=== PATIENT | male | born 1965 | race Caucasian/White ===

== ENCOUNTER 2021-12-06 12:20 | Outpatient (REF) | payer OTHER, SELFPAY ==
--- NOTE | 2021-12-06 12:37 | EEG_ITS ---
The waking background activity consists of a well-defined posterior alpha of 10-12 hertz at [id number] voltage intermixed anteriorly with low-voltage fast frequencies. Drowsiness is characterized by diffuse theta slowing. During sleep symmetrical frontal central sleep spindles and K complexes developed. Arousals are unremarkable. The patient presses the button on few occasions, but no background changes noted. IMPRESSION: This 24-hour ambulatory EEG is considered within normal limits. MD RODOLFO Potter/MCKAY / [id number]
== END 2021-12-06 12:21 | disposition home or self-care (01) ==
LOC: HO.NEURO 12:20
PROVIDERS: PCP Internal Medicine; Visit Provider Psychiatry & Neurology Neurology
DX: G40.909 Epilepsy, unspecified, not intractable, without status epilepticus (principal)
CPT/HCPCS: 95708; 95957

== ENCOUNTER 2022-04-04 12:04 | Inpatient (IN) | payer OTHER, SELFPAY ==
[2022-04-04] VITALS (11 sets, daily range): BP systolic 121–155; BP diastolic 61–80; PULSE 15–111; RESP 15–19; TEMP 36.9–37.6; O2SAT 96–100; BMI 29.9
--- NOTE | ~2022-04-04 | CT_ITS ---
EXAMINATION: CT HEAD WITHOUT CONTRAST CLINICAL INFORMATION: Multiple falls. COMPARISON: Brain MRI dated 12/18/2019. TECHNIQUE: Contiguous axial imaging was performed from the skull base to vertex without intravenous administration of contrast. Coronal and sagittal reformatted images were obtained. This CT examination was performed using dose optimization techniques as appropriate, variously including the following: *Automated exposure control *Adjustment of mA and/or kV according to patient size (this includes techniques or standardized protocols for targeted exams where dose is matched to indication/reason for exam; i.e. extremities or head) *Use of iterative reconstruction technique DLP: 699 mGy-cm FINDINGS: There is no evidence of acute intracranial hemorrhage or territorial infarction. No abnormal mass effect or midline shift is seen. Lou to white matter differentiation is well preserved. No extra-axial fluid collections are identified. The ventricles are normal in size. There is no abnormal attenuation within the brain parenchyma. The osseous structures and soft tissues are normal. Mild mucosal thickening is seen in the ethmoid sinuses bilaterally. The remainder the visualized paranasal sinuses are clear. The mastoid air cells are clear. CT/CT head/brain wo con IMPRESSION: No acute intracranial pathology.
--- NOTE | 2022-04-04 12:51 | ECG_ITS ---
Test Reason : weakness Blood Pressure : / mmHG Vent. Rate : 105 BPM Atrial Rate : 105 BPM P-R Int : 168 ms QRS Dur : 086 ms QT Int : 370 ms P-R-T Axes : 037 018 061 degrees QTc Int : 489 ms Sinus tachycardia Nonspecific ST and T wave abnormality Abnormal ECG No previous ECGs available Referred By: Kalli Garcia Electronically Signed By:LUL POSADA
--- NOTE | 2022-04-04 13:01 | ED_ITS ---
HPI - General Adult General Chief complaint: Weakness Stated complaint: WEAKNESS,W/ FALLS PER EMS Time Seen by Provider: 04/04/22 12:21 Source: patient and EMS Mode of arrival: EMS Limitations: no limitations History of Present Illness HPI narrative: Patient comes emergency room reporting that for the last 2 weeks he has had increased episodes of sudden onset loss of control of his lower extremities causing him to fall. Patient states that his legs just give out. Patient does not pass out. States that sometimes he does feel lightheaded after he is on the floor. Patient also states that he has noticed that he has had trouble intermittently getting the words out. Patient states his gets very frustra eddie by these episodes of aphasia. Patient denies any head injury. Patient is usually able to walk by himself. However, over the last 3 weeks, he needs his mother's walker to get around his house. States that sometimes when he does fall, he needs to drag himself across the floor. Patient states that when he has to go to the bathroom, sometimes he is able to reach the bathroom in time, sometimes he does not due to the falls/crawling. Patient has been evaluated by Neurology, patient states that he does not have a diagnosis yet. A 24 hour EEG has been done, patient states it was nondiagnostic. Patient states that although he has been having intermittent neurological issues for a few months, this last 2 weeks have been the worse Related Data Home Medications Medication Instructions Recorded Confirmed aspirin 81 mg tablet,delayed 1 tab PO DAILY 04/04/22 04/04/22 release atorvastatin 10 mg tablet 1 tab PO DAILY 04/04/22 04/04/22 epinephrine 0.3 mg/0.3 mL 0.3 mg IM USEASDIRECTD PRN 04/04/22 04/04/22 injection, auto-injector fluoxetine 40 mg capsule 1 cap PO DAILY 04/04/22 04/04/22 fluticasone propionate 50 2 spray INTRANASAL DAILY PRN 04/04/22 04/04/22 mcg/actuation nasal spray,suspension gabapentin 800 mg tablet 1 tab PO TID 04/04/22 04/04/22 lidocaine 5 % topical patch 1 patch TOPICAL DAILY 04/04/22 04/04/22 losartan 50 mg tablet 1 tab PO BEDTIME 04/04/22 04/04/22 metformin 500 mg tablet 1 tab PO BIDWM 04/04/22 04/04/22 oxycodone-acetaminophen 10 mg-325 1 tab PO QID 04/04/22 04/04/22 mg tablet pregabalin 300 mg capsule 1 cap PO BID 04/04/22 04/04/22 Allergies Allergy/AdvReac Type Severity Reaction Status Date / Time No Known Allergies Allergy Verified 04/04/22 12:19 lisinopril Allergy Unknown cough Uncoded 05/16/17 00:00 protonix Allergy Unknown ringing in Uncoded 05/16/17 00:00 ear Review of Systems Review of Systems: Constitutional : No Weight loss, No Fever, No Chills, No Night Sweats, No Fatigue, No Malaise ENT/Mouth : No Hearing loss, No Ear Pain, No Nasal Congestion, No Sinus Pain, No Hoarseness, No sore throat, No Rhinorrhea, No Swallowing Difficulty Eyes: No Eye Pain, No Swelling, No Redness, No Foreign Body, No Discharge, No Vision Changes Cardiovascular : No Chest Pain, No SOB, No Dyspnea on Exertion, No Orthopnea, No Edema, No Palpitations Respiratory : No Cough, No Sputum, No Wheezing, No Smoke Exposure, No Dyspnea Gastrointestinal : No Nausea, No Vomiting, No Diarrhea, No Constipation, No abdominal Pain, No Hematochezia, No Melena Genitourinary : no irregular bleeding, No Dysuria, No Urinary Frequency, No Hematuria, No Urinary Incontinence, No Urgency, No Flank Pain, No Urinary Flow Changes, No Hesitancy Musculoskeletal : Complaining of sudden onset of loss of strength in lower extremities, minor abrasions to knees Skin : No Skin Lesions, No rash Neuro : Intermittent lower extremity Weakness, No Numbness, No Paresthesias, No Loss of Consciousness, No Dizziness, No Headache Psych : No Anxiety/Panic, No Depression, No SI/HI/AH/VH, No Social Issues, Heme/Lymph: No Bruising, No Bleeding,No Lymphadenopathy Endocrine : No Polyuria, No Polydipsia, No Temperature Intolerance ON LICENSE OF [facility] Past Medical History Medical History (Updated 04/04/22 @ 17:34 by Kalli Garcia MD) ADHD Depression GERD (gastroesophageal reflux disease) Gout Hypertension Hypertriglyceridemia Periodic limb movement disorder Sleep apnea Type 2 diabetes mellitus Surgical History (Updated 04/04/22 @ 13:08 by Kalli Garcia MD) H/O gastric bypass Social History Social History Alcohol intake: never Patient Tobacco Use Status: Never used Tobacco Use of substances other than those prescribed or required for medical reasons: No Advance Directives: No Advance Directives Information Provided: No Physical Exam ED Vital Signs: Vital Signs - 24 hr 04/04/22 12:20 04/04/22 14:27 Temperature 98.5 F 99.7 F Pulse Rate 105 H 107 H Respiratory Rate 18 16 Blood Pressure 124/68 128/74 Pulse Oximetry 96 100 BMI result Body Mass Index 29.9 Const Other: Appearance: Alert. Oriented X3. No acute distress. Eyes: Pupils equal, round and reactive to light. Pale conjunctiva ENT: Pharynx normal. Neck: Normal inspection. Neck supple. No lymph nodes noted. No crepitus CVS: Normal heart rate and rhythm. Pulses normal. Normal S1 and S2 Respiratory: No respiratory distress. Breath sounds normal. No Wheezing. No rales Abdomen: Soft and nontender. No rigidity. No distention. Digital rectal exam shows black stool Skin: Skin warm and dry. pale skin color. Normal skin turgor. Extremities: No lower extremity edema. No Lacerations. No Rash, occasional upper extremity jerking movements lasting for less than a second Neuro: Oriented X 3. Moving all extremities. No slurred speech. CN 2 through 12 grossly intact Psych: calm, cooperative, normal affect Course Course Course Narrative: Head CT within normal limits. I was informed by the patient's nurse that the labs have been delayed because the patient is a difficult stick. 15:35, the lab called, patient's hemoglobin is 4.5. I discussed with the patient that he needs a blood transfusion. Patient is agreeable, I discussed with the patient's the advantages versus risks of a blood transfusion, patient agreeable. Patient states that he had a colonoscopy approximately 2 years ago, he was told that he had small polyps, and the recommendations were to follow up in 5 years from the time of the colonoscopy. On arrival, but was done, shows nonspecific ST segment depression in lead V4 V5 and V6. Patient had no chest pain. Approximately at 15:40, patient mentioned to his nurse that he has headache and mild chest pain. Some of his labs are still pending, including troponin. A 2nd EKG has been requested, still pending I discussed the ekg and trop with DR. Gorman, changes likely secondary to anemia. Complete echo has been ordered Stool guaiac is positive, patient will need a GI consult tomorrow. Patient is not on any blood thinners, only takes aspirin daily. Patient's chronic neurologic complains are being addressed by neurology in the outpt office. Pt may need new MRIs I was informed by the patient's nurse that the patient is having difficulty urinating. Patient takes chronic opiates. Bladder scan shows more than 800 mL of urine. Patient needs now a Murphy catheter for urinary retention Medical Decision Making Lab Data Result diagrams: 04/04/22 15:14 04/04/22 15:14 Labs: Lab Results 04/04/22 04/04/22 04/04/22 Range/Units 14:08 15:14 15:14 WBC 8.2 (4.8-10.8) X10*3/uL RBC 1.79 L (4.60-5.80) X10*6/uL Hgb 4.5 L* (14.0-18.0) g/dl Hct 14.7 L* (42.0-52.0) % MCV 82.1 (80.0-98.0) fL MCH 25.1 L (27.0-33.0) pg MCHC 30.6 L (31.0-36.0) g/dl RDW 13.1 (11.0-16.0) % Plt Count 388 (160-400) X10*3/uL MPV 9.7 (9.4-12.4) fL Immature Gran % (Auto) 0.7 H (0.0-0.4) % Neut % (Auto) 65.0 (45-73) % Lymph % (Auto) 22.2 (20-40) % [place] % (Auto) 10.1 (2-11) % Eos % (Auto) 1.3 (0-4) % Baso % (Auto) 0.7 (0-2) % Lymph # (Auto) 1.8 (1.2-4.9) X10*3/uL [place] # (Auto) 0.8 (0.1-1.2) X10*3/uL Eos # (Auto) 0.1 (0.0-0.4) X10*3/uL Baso # (Auto) 0.1 (0.0-0.2) X10*3/uL Abs Immat Gran (auto) 0.06 H (0.00-0.03) X10*3/uL Absolute Neuts (auto) 5.3 (2.0-8.3) x10*3/uL Absolute Nucleated RBC 0.020 H (0.0-0.012) X10*3/uL Nucleated RBC % (auto) 0.2 (0.0-0.2) /100WBC PT 13.4 H (9.9-13.0) SEC INR 1.2 H (0.9-1.1) Sodium (135-145) mmol/L Potassium (3.3-5.1) mmol/L Chloride (96-108) mmol/L Carbon Dioxide (22-29) mmol/L Anion Gap (12-20) BUN (9-16) mg/dL Creatinine (0.5-1.4) mg/dL Estim Creat Clear Calc Estimated GFR Random Glucose (60-115) mg/dL Calcium (8.4-10.2) mg/dL Magnesium (1.6-2.6) mg/dL Total Bilirubin (0.0-1.0) mg/dL Direct Bilirubin (0.0-0.5) mg/dL AST (5-37) U/L ALT (0-40) U/L Alkaline Phosphatase (39-117) U/L Troponin I High Sens (<3.5-35.0) ng/L Total Protein (6.5-8.0) g/dL Albumin (3.5-5.0) g/dL Vitamin B12 (200-900) pg/mL Folate (> or = 4.0) ng/mL TSH (0.32-4.0) uIU/mL Stool Occult Blood (NEGATIVE) Ethyl Alcohol mg/dL COVID-19 ([facility]) Negative (Negative) COVID-19 Clin Com See Note Blood Type Antibody Screen Crossmatch 04/04/22 04/04/22 04/04/22 Range/Units 15:14 15:14 15:14 WBC (4.8-10.8) X10*3/uL RBC (4.60-5.80) X10*6/uL Hgb (14.0-18.0) g/dl Hct (42.0-52.0) % MCV (80.0-98.0) fL MCH (27.0-33.0) pg MCHC (31.0-36.0) g/dl RDW (11.0-16.0) % Plt Count (160-400) X10*3/uL MPV (9.4-12.4) fL Immature Gran % (Auto) (0.0-0.4) % Neut % (Auto) (45-73) % Lymph % (Auto) (20-40) % [place] % (Auto) (2-11) % Eos % (Auto) (0-4) % Baso % (Auto) (0-2) % Lymph # (Auto) (1.2-4.9) X10*3/uL [place] # (Auto) (0.1-1.2) X10*3/uL Eos # (Auto) (0.0-0.4) X10*3/uL Baso # (Auto) (0.0-0.2) X10*3/uL Abs Immat Gran (auto) (0.00-0.03) X10*3/uL Absolute Neuts (auto) (2.0-8.3) x10*3/uL Absolute Nucleated RBC (0.0-0.012) X10*3/uL Nucleated RBC % (auto) (0.0-0.2) /100WBC PT (9.9-13.0) SEC INR (0.9-1.1) Sodium 136 (135-145) mmol/L Potassium 3.5 (3.3-5.1) mmol/L Chloride 104 (96-108) mmol/L Carbon Dioxide 22 (22-29) mmol/L Anion Gap 14 (12-20) BUN 9 (9-16) mg/dL Creatinine 0.74 (0.5-1.4) mg/dL Estim Creat Clear Calc 121.9 Estimated GFR > 60 Random Glucose 136 H (60-115) mg/dL Calcium 8.0 L (8.4-10.2) mg/dL Magnesium 1.7 (1.6-2.6) mg/dL Total Bilirubin 0.4 (0.0-1.0) mg/dL Direct Bilirubin 0.2 (0.0-0.5) mg/dL AST 11 (5-37) U/L ALT 9 (0-40) U/L Alkaline Phosphatase 50 (39-117) U/L Troponin I High Sens 192.5 H* (<3.5-35.0) ng/L Total Protein 5.8 L (6.5-8.0) g/dL Albumin 3.6 (3.5-5.0) g/dL Vitamin B12 430 (200-900) pg/mL Folate 17.2 (> or = 4.0) ng/mL TSH (0.32-4.0) uIU/mL Stool Occult Blood (NEGATIVE) Ethyl Alcohol mg/dL COVID-19 ([facility]) (Negative) COVID-19 Clin Com Blood Type Antibody Screen Crossmatch 04/04/22 04/04/22 04/04/22 Range/Units 15:14 15:14 16:07 WBC (4.8-10.8) X10*3/uL RBC (4.60-5.80) X10*6/uL Hgb (14.0-18.0) g/dl Hct (42.0-52.0) % MCV (80.0-98.0) fL MCH (27.0-33.0) pg MCHC (31.0-36.0) g/dl RDW (11.0-16.0) % Plt Count (160-400) X10*3/uL MPV (9.4-12.4) fL Immature Gran % (Auto) (0.0-0.4) % Neut % (Auto) (45-73) % Lymph % (Auto) (20-40) % [place] % (Auto) (2-11) % Eos % (Auto) (0-4) % Baso % (Auto) (0-2) % Lymph # (Auto) (1.2-4.9) X10*3/uL [place] # (Auto) (0.1-1.2) X10*3/uL Eos # (Auto) (0.0-0.4) X10*3/uL Baso # (Auto) (0.0-0.2) X10*3/uL Abs Immat Gran (auto) (0.00-0.03) X10*3/uL Absolute Neuts (auto) (2.0-8.3) x10*3/uL Absolute Nucleated RBC (0.0-0.012) X10*3/uL Nucleated RBC % (auto) (0.0-0.2) /100WBC PT (9.9-13.0) SEC INR (0.9-1.1) Sodium (135-145) mmol/L Potassium (3.3-5.1) mmol/L Chloride (96-108) mmol/L Carbon Dioxide (22-29) mmol/L Anion Gap (12-20) BUN (9-16) mg/dL Creatinine (0.5-1.4) mg/dL Estim Creat Clear Calc Estimated GFR Random Glucose (60-115) mg/dL Calcium (8.4-10.2) mg/dL Magnesium (1.6-2.6) mg/dL Total Bilirubin (0.0-1.0) mg/dL Direct Bilirubin (0.0-0.5) mg/dL AST (5-37) U/L ALT (0-40) U/L Alkaline Phosphatase (39-117) U/L Troponin I High Sens (<3.5-35.0) ng/L Total Protein (6.5-8.0) g/dL Albumin (3.5-5.0) g/dL Vitamin B12 (200-900) pg/mL Folate (> or = 4.0) ng/mL TSH 0.37 (0.32-4.0) uIU/mL Stool Occult Blood (NEGATIVE) Ethyl Alcohol < 10 mg/dL COVID-19 ([facility]) (Negative) COVID-19 Clin Com Blood Type A Positive Antibody Screen NEGATIVE Crossmatch See Detail 04/04/22 Range/Units 16:11 WBC (4.8-10.8) X10*3/uL RBC (4.60-5.80) X10*6/uL Hgb (14.0-18.0) g/dl Hct (42.0-52.0) % MCV (80.0-98.0) fL MCH (27.0-33.0) pg MCHC (31.0-36.0) g/dl RDW (11.0-16.0) % Plt Count (160-400) X10*3/uL MPV (9.4-12.4) fL Immature Gran % (Auto) (0.0-0.4) % Neut % (Auto) (45-73) % Lymph % (Auto) (20-40) % [place] % (Auto) (2-11) % Eos % (Auto) (0-4) % Baso % (Auto) (0-2) % Lymph # (Auto) (1.2-4.9) X10*3/uL [place] # (Auto) (0.1-1.2) X10*3/uL Eos # (Auto) (0.0-0.4) X10*3/uL Baso # (Auto) (0.0-0.2) X10*3/uL Abs Immat Gran (auto) (0.00-0.03) X10*3/uL Absolute Neuts (auto) (2.0-8.3) x10*3/uL Absolute Nucleated RBC (0.0-0.012) X10*3/uL Nucleated RBC % (auto) (0.0-0.2) /100WBC PT (9.9-13.0) SEC INR (0.9-1.1) Sodium (135-145) mmol/L Potassium (3.3-5.1) mmol/L Chloride (96-108) mmol/L Carbon Dioxide (22-29) mmol/L Anion Gap (12-20) BUN (9-16) mg/dL Creatinine (0.5-1.4) mg/dL Estim Creat Clear Calc Estimated GFR Random Glucose (60-115) mg/dL Calcium (8.4-10.2) mg/dL Magnesium (1.6-2.6) mg/dL Total Bilirubin (0.0-1.0) mg/dL Direct Bilirubin (0.0-0.5) mg/dL AST (5-37) U/L ALT (0-40) U/L Alkaline Phosphatase (39-117) U/L Troponin I High Sens (<3.5-35.0) ng/L Total Protein (6.5-8.0) g/dL Albumin (3.5-5.0) g/dL Vitamin B12 (200-900) pg/mL Folate (> or = 4.0) ng/mL TSH (0.32-4.0) uIU/mL Stool Occult Blood POSITIVE (NEGATIVE) Ethyl Alcohol mg/dL COVID-19 ([facility]) (Negative) COVID-19 Clin Com Blood Type Antibody Screen Crossmatch Critical Care Time Critical Care Time Critical Care Time: Yes Total Critical Care Time: 60 Attestation: I have personally provided critical care time. Time includes review of lab data, radiology results, discussion with consultants, and monitoring for potential decompensation. Intervention performed as documented. Discharge Plan Discharge Clinical Impression: Anemia, GI bleed, Acute urinary retention Patient Disposition: Admitted As Inpatient
[2022-04-04 14:36] LABS: COVID-19 Test Negative (Negative); IDNOW Serial# 16C4AD1C
[2022-04-04 15:20] LABS: MANUAL DIFF FLAG NO
[2022-04-04 15:22] LABS: Basophils Absolute Auto 0.1 X10*3/uL (0.0-0.2); Basophils Percent Auto 0.7 % (0-2); Eosinophils Absolute Auto 0.1 X10*3/uL (0.0-0.4); Eosinophils Percent Auto 1.3 % (0-4); Imm Gran Abs Auto 0.06 X10*3/uL (0.00-0.03); Imm Gran Pct Auto 0.7 % (0.0-0.4); Lymphocytes Absolute Auto 1.8 X10*3/uL (1.2-4.9); Lymphocytes Percent Auto 22.2 % (20-40); Mean Corpuscular HGB Conc 30.6 g/dl (31.0-36.0); Mean Corpuscular Hemoglobin 25.1 pg (27.0-33.0); Mean Corpuscular Volume 82.1 fL (80.0-98.0); Mean Platelet Volume 9.7 fL (9.4-12.4); Monocytes Absolute Auto 0.8 X10*3/uL (0.1-1.2); Monocytes Percent Auto 10.1 % (2-11); NRBC Pct Auto 0.2 /100WBC (0.0-0.2); Neutrophils Absolute Auto 5.3 x10*3/uL (2.0-8.3); Platelet Count 388 X10*3/uL (160-400); Red Blood Count 1.79 X10*6/uL (4.60-5.80); Red Cell Distribution Width 13.1 % (11.0-16.0); White Blood Count 8.2 X10*3/uL (4.8-10.8)
[2022-04-04 15:26] LABS: Hemoglobin 4.5 g/dl (14.0-18.0)
[2022-04-04 15:27] LABS: Hematocrit 14.7 % (42.0-52.0); INTERNATIONAL NORM RATIO 1.2 (0.9-1.1); Prothrombin Time 13.4 SEC (9.9-13.0)
[2022-04-04 15:33] LABS: Ethanol < 10 mg/dL
[2022-04-04 15:40] LABS: Alanine Aminotransferase 9 U/L (0-40); Albumin Level 3.6 g/dL (3.5-5.0); Alkaline Phosphatase 50 U/L (39-117); Anion Gap 14 (12-20); Aspartate Amino Transferase 11 U/L (5-37); Bilirubin Direct 0.2 mg/dL (0.0-0.5); Bilirubin Total 0.4 mg/dL (0.0-1.0); Blood Urea Nitrogen 9 mg/dL (9-16); Carbon Dioxide 22 mmol/L (22-29); Chloride 104 mmol/L (96-108); Creatinine Clr Calc Pharmacy 121.9; Estimated Glomerular Filt Rate > 60; Glucose Random 136 mg/dL (60-115); Magnesium 1.7 mg/dL (1.6-2.6); Potassium 3.5 mmol/L (3.3-5.1); Sodium 136 mmol/L (135-145); Total Protein 5.8 g/dL (6.5-8.0)
[2022-04-04 15:44] LABS: Troponin-I High Sensitivity 192.5 ng/L (<3.5-35.0)
--- NOTE | 2022-04-04 15:44 | ECG_ITS ---
Test Reason : CHEST PAIN Blood Pressure : / mmHG Vent. Rate : 105 BPM Atrial Rate : 105 BPM P-R Int : 142 ms QRS Dur : 086 ms QT Int : 364 ms P-R-T Axes : 015 026 067 degrees QTc Int : 481 ms Sinus tachycardia Nonspecific ST and T wave abnormality Abnormal ECG When compared with ECG of 04-APR-2022 13:27, Lateral ST depression slightly more prominent. Referred By: Kalli Garcia Electronically Signed By:LUL POSADA
[2022-04-04 16:00] LABS: TSH reflex Free T4 0.37 uIU/mL (0.32-4.0)
[2022-04-04 16:13] LABS: Folate 17.2 ng/mL (> or = 4.0); Vitamin B12 430 pg/mL (200-900)
[2022-04-04 16:15] LABS: OBS Int Ctl Valid YES; OBS1 POSITIVE (NEGATIVE)
--- NOTE | 2022-04-04 16:26 | PHA.MEDREC ---
Pharmacy Consult ? Medication Reconciliation Pharmacy has completed the medication reconciliation Pt takes both gabapentin and pregablin, gabapentin frequency reduced to tid. Propranolol stopped
[2022-04-04] MEDS: Prochlorperazine Edisylate 10 MG/2 ML VIAL IVPUSH (16:28)
[2022-04-04] MEDS: Morphine Sulfate 2 MG/ML CARTRIDGE IVPUSH (16:28)
--- NOTE | 2022-04-04 17:12 | PM.IMHP ---
History of Present Illness Date of Service: 04/04/22 Attending physician on admission: Gunnar Kirkpatrick Chief Complaint: weakness 57 year old man presenting with episodes of dizziness and falls worse over the last 2 weeks. he reports that getting up to the bathroom he just falls down on his knees, he denies any loss of consciousness we does report some dizziness. He has been worked up for an unknown neurological illness. This has been ongoing over the last several years. He has been using a walker intermittently at home when he has trouble getting around. In 2019 he had an MRI for presumed stroke which was negative. In November of this year he had an EEG which was nondiagnostic. He reports that the follow-up for this has subsided some. He reported that he does have history of constipation and had occasionally noted some dark stools and he takes aspirin and very occasional ibuprofen but not on a regular basis. He reported that he does get some chest pain on and off substernal without any radiation or other associated symptoms usually happening when he falls. This has been ongoing for several months now as well. He also has some aphasia. CT was negative for any acute abnormality today. He was noted to have some urinary retention therefore a Murphy catheter was placed. In the ER,His HH was noted to be 4.5/14.7, stool occult positive. He had some mild chest pain and troponin came back positive at 192.[address] wave abnormalities to V4,5,6. Head CT neg. Stable blood pressure. 3 units of PRBC ordered. He will be admitted for further management and treatment of symptomatic acute blood loss anemia. Review of Systems Review of Systems: Denies any recent fever chills or decrease in appetite respiratory denies any shortness of breath coverage production cardiovascular see HPI gastrointestinal denies any dysphagia abdominal pain nausea vomiting or diarrhea genitourinary denies any dysuria frequency or hematuria musculoskeletal denies any joint pain or swelling neuropsych denies any weakness or seizures all other systems reviewed are negative [facility] Medical History (Updated 04/04/22 @ 17:34 by Kalli Garcia MD) ADHD Depression GERD (gastroesophageal reflux disease) Gout Hypertension Hypertriglyceridemia Periodic limb movement disorder Sleep apnea Type 2 diabetes mellitus Pertinent family history: denies cardiac disease Surgical History (Updated 04/04/22 @ 13:08 by Kalli Garcia MD) H/O gastric bypass Social History Alcohol intake: never Patient Tobacco Use Status: Never used Tobacco Use of substances other than those prescribed or required for medical reasons: No Advance Directives: No Advance Directives Information Provided: No Meds Allergies Allergy/AdvReac Type Severity Reaction Status Date / Time No Known Allergies Allergy Verified 04/04/22 12:19 lisinopril Allergy Unknown cough Uncoded 05/16/17 00:00 protonix Allergy Unknown ringing in Uncoded 05/16/17 00:00 ear Active Medications: Current Medications Acetaminophen (Acetaminophen 325 Mg Tablet) 650 mg PO Q6H PRN PRN Reason: Pain, Mild (Pain Scale 1-3) Atorvastatin Calcium (Atorvastatin Calcium 10 Mg Tablet) 10 mg PO DAILY [facility] Fluoxetine HCl (Fluoxetine Hcl 20 Mg Capsule) 40 mg PO DAILY [facility] Fluticasone Propionate (Fluticasone Propionate Nasal 16 Gm [place]) 2 spray NOSTRIL-B DAILY PRN PRN Reason: Allergy Symptoms Gabapentin (Gabapentin 400 Mg Capsule) 800 mg PO TID [facility] Lidocaine (Lidocaine 4 % Patch Adh..Patch) 1 patch TRANSDERMA DAILY [facility] Ondansetron HCl (Ondansetron Hcl 4 Mg/2 Ml Vial) 4 mg IVPUSH Q8H PRN PRN Reason: Nausea and Vomiting Pharmacy Consult (Consult Rx Perform Med Rec) 1 each MISCELLANE ONCE PRN PRN Reason: Consult order Pregabalin (Pregabalin 150 Mg Capsule) 300 mg PO BID [facility] Sodium Chloride (0.9 % Sodium Chloride Flush 3 Ml Syringe) 3 ml IVFLUSH QSHIFT [facility] Home Medications Medication Instructions Recorded Confirmed Last Taken Type aspirin 81 mg tablet,delayed 1 tab PO DAILY 04/04/22 04/04/22 04/04/22 History release atorvastatin 10 mg tablet 1 tab PO DAILY 04/04/22 04/04/22 04/04/22 History epinephrine 0.3 mg/0.3 mL 0.3 mg IM USEASDIRECTD PRN 04/04/22 04/04/22 Unknown History injection, auto-injector fluoxetine 40 mg capsule 1 cap PO DAILY 04/04/22 04/04/22 04/04/22 History fluticasone propionate 50 2 spray INTRANASAL DAILY PRN 04/04/22 04/04/22 Unknown History mcg/actuation nasal spray,suspension gabapentin 800 mg tablet 1 tab PO TID 04/04/22 04/04/22 04/04/22 History lidocaine 5 % topical patch 1 patch TOPICAL DAILY 04/04/22 04/04/22 03/30/22 History losartan 50 mg tablet 1 tab PO BEDTIME 04/04/22 04/04/22 03/31/22 History metformin 500 mg tablet 1 tab PO BIDWM 04/04/22 04/04/22 04/04/22 History oxycodone-acetaminophen 10 mg-325 1 tab PO QID 04/04/22 04/04/22 04/04/22 History mg tablet pregabalin 300 mg capsule 1 cap PO BID 04/04/22 04/04/22 04/04/22 History Physical Exam Vital Signs and Narrative: Vital Signs: Last Vital Signs Temp 99.7 F 04/04/22 14:27 Pulse 107 H 04/04/22 14:27 Resp 16 04/04/22 14:27 BP 128/74 04/04/22 14:27 Pulse Ox 100 04/04/22 14:27 BMI result Body Mass Index 29.9 Results Labs CBC and Chem 7: 04/04/22 15:14 04/04/22 15:14 Labs: Laboratory Results - last 24 hr 04/04/22 04/04/22 04/04/22 14:08 15:14 15:14 MCV 82.1 MCH 25.1 L MCHC 30.6 L RDW 13.1 Plt Count 388 MPV 9.7 Immature Gran % (Auto) 0.7 H Neut % (Auto) 65.0 Lymph % (Auto) 22.2 [place] % (Auto) 10.1 Eos % (Auto) 1.3 Baso % (Auto) 0.7 Lymph # (Auto) 1.8 [place] # (Auto) 0.8 Eos # (Auto) 0.1 Baso # (Auto) 0.1 Abs Immat Gran (auto) 0.06 H Absolute Neuts (auto) 5.3 Absolute Nucleated RBC 0.020 H Nucleated RBC % (auto) 0.2 PT 13.4 H INR 1.2 H Anion Gap Estim Creat Clear Calc Estimated GFR Random Glucose Calcium Magnesium Total Bilirubin Direct Bilirubin AST ALT Alkaline Phosphatase Troponin I High Sens Total Protein Albumin Vitamin B12 Folate TSH Stool Occult Blood Ethyl Alcohol COVID-19 ([facility]) Negative COVID-19 Clin Com See Note Blood Type Antibody Screen Crossmatch 04/04/22 04/04/22 04/04/22 15:14 15:14 15:14 MCV MCH MCHC RDW Plt Count MPV Immature Gran % (Auto) Neut % (Auto) Lymph % (Auto) [place] % (Auto) Eos % (Auto) Baso % (Auto) Lymph # (Auto) [place] # (Auto) Eos # (Auto) Baso # (Auto) Abs Immat Gran (auto) Absolute Neuts (auto) Absolute Nucleated RBC Nucleated RBC % (auto) PT INR Anion Gap 14 Estim Creat Clear Calc 121.9 Estimated GFR > 60 Random Glucose 136 H Calcium 8.0 L Magnesium 1.7 Total Bilirubin 0.4 Direct Bilirubin 0.2 AST 11 ALT 9 Alkaline Phosphatase 50 Troponin I High Sens 192.5 H* Total Protein 5.8 L Albumin 3.6 Vitamin B12 430 Folate 17.2 TSH Stool Occult Blood Ethyl Alcohol COVID-19 ([facility]) COVID-19 Unruly Com Blood Type Antibody Screen Crossmatch 04/04/22 04/04/22 04/04/22 15:14 15:14 16:07 MCV MCH MCHC RDW Plt Count MPV Immature Gran % (Auto) Neut % (Auto) Lymph % (Auto) [place] % (Auto) Eos % (Auto) Baso % (Auto) Lymph # (Auto) [place] # (Auto) Eos # (Auto) Baso # (Auto) Abs Immat Gran (auto) Absolute Neuts (auto) Absolute Nucleated RBC Nucleated RBC % (auto) PT INR Anion Gap Estim Creat Clear Calc Estimated GFR Random Glucose Calcium Magnesium Total Bilirubin Direct Bilirubin AST ALT Alkaline Phosphatase Troponin I High Sens Total Protein Albumin Vitamin B12 Folate TSH 0.37 Stool Occult Blood Ethyl Alcohol < 10 COVID-19 ([facility]) COVID-19 Unruly Com Blood Type A Positive Antibody Screen NEGATIVE Crossmatch See Detail 04/04/22 16:11 MCV MCH MCHC RDW Plt Count MPV Immature Gran % (Auto) Neut % (Auto) Lymph % (Auto) [place] % (Auto) Eos % (Auto) Baso % (Auto) Lymph # (Auto) [place] # (Auto) Eos # (Auto) Baso # (Auto) Abs Immat Gran (auto) Absolute Neuts (auto) Absolute Nucleated RBC Nucleated RBC % (auto) PT INR Anion Gap Estim Creat Clear Calc Estimated GFR Random Glucose Calcium Magnesium Total Bilirubin Direct Bilirubin AST ALT Alkaline Phosphatase Troponin I High Sens Total Protein Albumin Vitamin B12 Folate TSH Stool Occult Blood POSITIVE Ethyl Alcohol COVID-19 ([facility]) COVID-19 Clin Com Blood Type Antibody Screen Crossmatch Imaging Radiologist's Impressions: Impressions Head CT 04/04/22 13:21 IMPRESSION: No acute intracranial pathology. Assessment and Plan (1) GI bleed: Status: Acute Plan 57-year-old man admitted with severe anemia with black stools, also noted to have elevated troponin with abnormal EKG likely secondary to anemia. Acute blood loss anemia with dizziness Denies history of heavy alcohol abuse, takes aspirin 3 units of packed red blood cells ordered Recheck CBC tonight and transfuse as necessary GI consultation, will likely need EGD, colo PPI Hold aspirin EKG abnormality with elevated troponin Nonspecific ST wave abnormalities in V4, V5 and V6 Patient did have some mild chest pain but has since subsided, and he reported that this has been ongoing for several months especially when he falls Cardiology consultation Trend troponin Echocardiogram as per Cardiology Urinary retention. Unknown etiology Murphy catheter placed with drainage of 800 cc of yellow urine Check Utox, UA Voiding trial when patient more stable no improvement consider urology consultation Hypertension. Stable blood pressure Hold antihypertensives to avoid hypotension in light of severe anemia restart when appropriate Aphasia with falls Currently being followed by neurology for workup which so far has included an EEG which was nondiagnostic Looks like he has had the symptoms since 2019 possibly, had an MRI for presumed stroke which was negative Will consult Neurology in case patient needs any workup that could be done while inpatient Physical therapy consultation out of bed with assist Mental health Continue home medications Diabetes mellitus Hold metformin Sliding scale, ADA diet DVT prophylaxis with pneumatic compression boots in light of anemia Attending Dr. Kirkpatrick Full code Patient likely requires 2 midnights in the hospital due to severe symptomatic anemia requiring blood transfusions, close monitoring of CBC and likely gastroenterological procedure while inpatient Quality Stroke Does the patient have a stroke diagnosis?: No VTE Prior VTE?: No VTE Risk Level:: Medical - moderate - high VTE Device Contraindication: N/A - Device Ordered VTE Drug Contraindication: Treatment Not Indicated
[2022-04-04 17:50] LABS: Appearance Urine CLEAR; Color Urine YELLOW; Glucose Urine UA 100 MG/DL (NEG); Leukocyte Esterase Urine NEG (NEG); Nitrite Urine NEG (NEG); PH 7.5 (5.0-8.0); UACC Culture Trigger NO; Urine Blood TRACE (NEG); Urine Ketones NEG (NEG); Urine Protein NEG (NEG-TRACE)
[2022-04-04 18:00] LABS: Squamous Epithelial Cell Urine TRACE /LPF; UACC CULT YES
[2022-04-04 18:05] LABS: Amphetamine Screen Urine Not Detected (Not Detect); Barbiturates, Urine Not Detected (Not Detect); Benzodiazepines Screen Urine Not Detected (Not Detect); Cannabinoid Screen Urine POSITIVE (Not Detect); Cocaine Screen Urine Not Detected (Not Detect); Fentanyl, urine Not Detected (Not Detect); Opiate Screen Urine POSITIVE (Not Detect); Phencyclidine Screen Urine Not Detected (Not Detect)
[2022-04-04 18:27] LABS: Iron 9 mcg/dL (45-160); Percent Iron Saturation 2 % (15-50); Total Iron Binding Capacity 384 mcg/dL (228-428); Unsaturated Iron Binding 375 ug/dL
[2022-04-04 18:44] LABS: Ferritin 5 ng/mL (20-250)
[2022-04-04] MEDS: oxyCODONE HCl Immed Release 5 MG TABLET PO (19:40)
[2022-04-04 20:28] LABS: Troponin-I High Sensitivity 164.6 ng/L (<3.5-35.0)
[2022-04-04] MEDS: Gabapentin 400 MG CAPSULE 800 MG PO (20:43)
[2022-04-04] MEDS: Pregabalin 150 MG CAPSULE 300 MG PO (20:43)
[2022-04-04 21:24] LABS: Glucose, Whole Blood 163 mg/dL (60-115)
--- NOTE | 2022-04-04 22:11 | PC.NURSE ---
Patient alert and oriented x 3. tele: sinus tachycardia 100-110's Patient c/o back pain medicated with relief. Patients hgb-4.5 MD aware ordered 3 units of RBC's ordered. 2 units given in ED. Patient ambulates independently at home. Patient bladder scanned for over 800cc's Dr. Garcia notified ordered [place] catheter insertion. Coude catheter inserted 18f by Me. see chart for labs results. Troponins elevated. Will continue to monitor.
[2022-04-04] MEDS: 0.9 % Sodium Chloride Flush 3 ML SYRINGE IVFLUSH (22:30)
[2022-04-04 22:57] LABS: Mean Corpuscular HGB Conc 32.1 g/dl (31.0-36.0); Mean Corpuscular Hemoglobin 27.3 pg (27.0-33.0); Mean Platelet Volume 9.9 fL (9.4-12.4); NRBC Pct Auto 0.4 /100WBC (0.0-0.2); Platelet Count 351 X10*3/uL (160-400); Red Cell Distribution Width 14.4 % (11.0-16.0); White Blood Count 10.4 X10*3/uL (4.8-10.8)
[2022-04-04 23:10] LABS: Hematocrit 18.7 % (42.0-52.0)
[2022-04-05] VITALS (12 sets, daily range): BP systolic 134–158; BP diastolic 61–92; PULSE 86–103; RESP 16–18; TEMP 36.3–37.5; O2SAT 98–100
[2022-04-05] MEDS: diphenhydrAMINE HCL 25 MG TABLET PO (00:41)
[2022-04-05] MEDS: oxyCODONE HCl Immed Release 5 MG TABLET PO (00:41)
--- NOTE | 2022-04-05 06:27 | P.CNGI_ITS ---
History of Present Illness Data of Consult Service Date: 04/05/22 Requesting physician: Gunnar Kirkpatrick Primary Care Provider: Burak Orr III, MD HPI Reason for consult: anemia 57 year old man w/ DM, LIV< HTN and gastric bypass 2016 who I am seeing for assessment of anemia. He presented with weakness with dizziness and falls. He also had mid chest pain which has now resolved. Labs revealed severe anemia with HGB 4.5 g/dl and given 3 units PRBC. He also had abn ECG and raised troponin. He has noted dark brown stools, bt no fresh blood in stool. He denies abdominal pain, no reflux. He takes aspirin 325 mg daily in combination with codeine for neck pain for mnay years He is also being Ix for chronic neurological sx He ran out of his nutritonal supplements and iron tabs one month ago. Last colonoscopyh was 3 yrs or so ago at [facility] [place] and normal Review of Systems Review of Systems: Constitutional : No Weight loss, No Fever, No Chills ENT/Mouth : No sore throat, No Rhinorrhea Eyes: No Swelling, No Redness Cardiovascular : + Chest Pain, No SOB, No Edema Respiratory : No Cough, No Sputum, No Wheezing Gastrointestinal : see HPI Genitourinary : NO Dysuria, No Urinary Frequency, No Hematuria, No Urgency Musculoskeletal : No joint pain, No Myalgias, No Joint Swelling Skin : No Skin Lesions, No rash Neuro : + Weakness, No Numbness, + Dizziness, No Headache Psych : No Anxiety/Panic, No Depression Heme/Lymph: No Bruising, No Lymphadenopathy Endocrine : No Polyuria, No Polydipsia All other systems reviewed and are negative [facility] Past Medical History Medical History (Updated 04/05/22 @ 18:05 by Cielo Henson MD) ADHD Depression GERD (gastroesophageal reflux disease) Gout Hypertension Hypertriglyceridemia Periodic limb movement disorder Sleep apnea Type 2 diabetes mellitus Family History Family History (Updated 04/05/22 @ 10:28 by Chapo Gorman MD) Mother No problems noted. Pertinent family history: denies cardiac disease, no FH of CRC Surgical History Surgical History (Updated 04/04/22 @ 13:08 by Kalli Garcia MD) H/O gastric bypass Social History Social History Household Members: Spouse and Other Housing: House Do you presently have visiting nurse or other home services: No Alcohol intake: never Patient Tobacco Use Status: Never used Tobacco Substance Use Type: Marijuana service: No Current occupational status: unemployed Meds Allergies Allergy/AdvReac Type Severity Reaction Status Date / Time No Known Allergies Allergy Verified 04/04/22 12:19 lisinopril Allergy Unknown cough Uncoded 05/16/17 00:00 protonix Allergy Unknown ringing in Uncoded 05/16/17 00:00 ear Active Medications: Current Medications Acetaminophen (Acetaminophen 325 Mg Tablet) 650 mg PO Q6H PRN PRN Reason: Pain, Mild (Pain Scale 1-3) Atorvastatin Calcium (Atorvastatin Calcium 10 Mg Tablet) 10 mg PO DAILY [facility] Diphenhydramine HCl (Diphenhydramine Hcl 25 Mg Tablet) 25 mg PO BEDTIME PRN PRN Reason: Sleep Last Admin: 04/05/22 00:41 Dose: 25 mg Fluoxetine HCl (Fluoxetine Hcl 20 Mg Capsule) 40 mg PO DAILY [facility] Fluticasone Propionate (Fluticasone Propionate Nasal 16 Gm [place]) 2 spray NOSTRIL-B DAILY PRN PRN Reason: Allergy Symptoms Gabapentin (Gabapentin 400 Mg Capsule) 800 mg PO TID [facility] Last Admin: 04/04/22 20:43 Dose: 800 mg Lidocaine (Lidocaine 4 % Patch Adh..Patch) 1 patch TRANSDERMA DAILY [facility] Omeprazole (Omeprazole 40 Mg Capsule.Dr) 40 mg PO BID@0630,1630 [facility] Ondansetron HCl (Ondansetron Hcl 4 Mg/2 Ml Vial) 4 mg IVPUSH Q8H PRN PRN Reason: Nausea and Vomiting Oxycodone HCl (Oxycodone Hcl Immed Release 5 Mg Tablet) 5 mg PO Q6H PRN PRN Reason: Breakthrough Pain Last Admin: 04/05/22 00:41 Dose: 5 mg Pharmacy Consult (Consult Rx Perform Med Rec) 1 each MISCELLANE ONCE PRN PRN Reason: Consult order Pregabalin (Pregabalin 150 Mg Capsule) 300 mg PO BID [facility] Last Admin: 04/04/22 20:43 Dose: 300 mg Sodium Chloride (0.9 % Sodium Chloride Flush 3 Ml Syringe) 3 ml IVFLUSH QSHIFT [facility] Last Admin: 04/04/22 22:30 Dose: 3 ml Home Medications Medication Instructions Recorded Confirmed Last Taken Type aspirin 81 mg tablet,delayed 1 tab PO DAILY 04/04/22 04/04/22 04/04/22 History release atorvastatin 10 mg tablet 1 tab PO DAILY 04/04/22 04/04/22 04/04/22 History epinephrine 0.3 mg/0.3 mL 0.3 mg IM USEASDIRECTD PRN 04/04/22 04/04/22 Unknown History injection, auto-injector Anaphylaxis fluoxetine 40 mg capsule 1 cap PO DAILY 04/04/22 04/04/22 04/04/22 History fluticasone propionate 50 2 spray intranasal DAILY PRN 04/04/22 04/04/22 Unknown History mcg/actuation nasal Allergy Symptoms spray,suspension gabapentin 800 mg tablet 1 tab PO TID 04/04/22 04/04/22 04/04/22 History lidocaine 5 % topical patch 1 patch topical DAILY 04/04/22 04/04/22 03/30/22 History losartan 50 mg tablet 1 tab PO BEDTIME 04/04/22 04/04/22 03/31/22 History metformin 500 mg tablet 1 tab PO BIDWM 04/04/22 04/04/22 04/04/22 History oxycodone-acetaminophen 10 mg-325 1 tab PO QID 04/04/22 04/04/22 04/04/22 His tory mg tablet pregabalin 300 mg capsule 1 cap PO BID 04/04/22 04/04/22 04/04/22 History Physical Exam Vital Signs: Vital Signs: Last Vital Signs Temp 98.7 F 04/05/22 03:25 Pulse 103 H 04/05/22 03:25 Resp 18 04/05/22 03:25 BP 146/78 H 04/05/22 03:25 Pulse Ox 99 04/05/22 03:25 O2 Del Method 04/05/22 03:25 BMI result Body Mass Index 29.9 EXAM: GENERAL: The patient is well developed and nontoxic appearing, slight pallor VITAL SIGNS:see workflow HEENT: Nonicteric sclerae, PERRLA, EOMI. Oropharynx clear. Moist mucous membranes. Conjunctivae appear pale. No thyroid mass. CHEST: Chest wall is nontender. HEART: Regular rate and rhythm without murmurs. LUNGS: Clear to auscultation bilaterally. ABDOMEN: Soft, positive bowel sounds, nontender, no organomegaly.no flank tenderness SKIN: No rash, no excessive bruising, petechiae, or purpura. NEUROLOGIC: Cranial nerves II-XII intact without motor/sensory deficit. Psych-nml affect MS- nml movement of arms, spine, legs Const: Other: Appearance: Alert. Oriented X3. No acute distress. Eyes: Pupils equal, round and reactive to light. Pale conjunctiva ENT: Pharynx normal. Neck: Normal inspection. Neck supple. No lymph nodes noted. No crepitus CVS: Normal heart rate and rhythm. Pulses normal. Normal S1 and S2 Respiratory: No respiratory distress. Breath sounds normal. No Wheezing. No rales Abdomen: Soft and nontender. No rigidity. No distention. Digital rectal exam shows black stool Skin: Skin warm and dry. pale skin color. Normal skin turgor. Extremities: No lower extremity edema. No Lacerations. No Rash, occasional upper extremity jerking movements lasting for less than a second Neuro: Oriented X 3. Moving all extremities. No slurred speech. CN 2 through 12 grossly intact Psych: calm, cooperative, normal affect Results Labs CBC & Chem 7: 04/05/22 06:00 04/05/22 06:00 Labs: Short CBC 04/04/22 04/04/22 Range/Units 15:14 22:46 WBC 8.2 10.4 (4.8-10.8) X10*3/uL Hgb 4.5 L* 6.0 L* D (14.0-18.0) g/dl Hct 14.7 L* 18.7 L* D (42.0-52.0) % Plt Count 388 351 (160-400) X10*3/uL BMP 04/04/22 15:14 Sodium 136 Potassium 3.5 Chloride 104 Carbon Dioxide 22 BUN 9 Creatinine 0.74 Calcium 8.0 L Liver Function 04/04/22 Range/Units 15:14 Total Bilirubin 0.4 (0.0-1.0) mg/dL Direct Bilirubin 0.2 (0.0-0.5) mg/dL AST 11 (5-37) U/L ALT 9 (0-40) U/L Alkaline Phosphatase 50 (39-117) U/L Albumin 3.6 (3.5-5.0) g/dL Urine 04/04/22 Range/Units 17:42 Urine Color YELLOW Urine Appearance CLEAR Urine pH 7.5 (5.0-8.0) Ur Specific [place] 1.010 (1.005-1.025) Urine Protein NEG (NEG-TRACE) MG/DL Urine Glucose (UA) 100 H (NEG) MG/DL Assessment and Plan (1) Iron deficiency: Status: Acute (2) Anemia: Status: Acute Plan 1/ RIKI from combination of gastric bypass with malnutrition and posible mucosal blood loss due to higher dose aspirin for many years vs PUD PLAN: 1/ Trend HGB BID, target HGB around 8 g/dl--raised trop prob due to demand - mismand ischemia 2/ clears today and bowel prep with plan for egd/colo tomorrow 3/ can use standard dose PPI once daily for the meantime Procedures Date of Service Date of Service: 04/05/22
[2022-04-05 06:29] LABS: MANUAL DIFF FLAG NO
[2022-04-05 06:50] LABS: Basophils Absolute Auto 0.1 X10*3/uL (0.0-0.2); Basophils Percent Auto 0.9 % (0-2); Eosinophils Absolute Auto 0.1 X10*3/uL (0.0-0.4); Eosinophils Percent Auto 1.6 % (0-4); Hematocrit 22.4 % (42.0-52.0); Hemoglobin 7.3 g/dl (14.0-18.0); Imm Gran Abs Auto 0.09 X10*3/uL (0.00-0.03); Lymphocytes Absolute Auto 1.6 X10*3/uL (1.2-4.9); Lymphocytes Percent Auto 17.7 % (20-40); Mean Corpuscular HGB Conc 32.6 g/dl (31.0-36.0); Mean Corpuscular Hemoglobin 27.5 pg (27.0-33.0); Mean Corpuscular Volume 84.5 fL (80.0-98.0); Mean Platelet Volume 10.5 fL (9.4-12.4); Monocytes Percent Auto 11.7 % (2-11); NRBC Pct Auto 0.7 /100WBC (0.0-0.2); Neutrophils Percent Auto 67.1 % (45-73); Platelet Count 338 X10*3/uL (160-400); Red Blood Count 2.65 X10*6/uL (4.60-5.80); Red Cell Distribution Width 13.8 % (11.0-16.0); White Blood Count 8.9 X10*3/uL (4.8-10.8)
--- NOTE | 2022-04-05 07:00 | CA_ITS ---
Transthoracic Echocardiogram Patient (Last, First, Middle): Keon Ragsdale F Gender: Male Date of : 1965 Age: 57 Procedure Date: 04/05/2022 Procedure Type: Transthoracic [place] [facility] [place]: 175.26 cm Weight: 92.08 kg BSA: 2.08 m2 Heart Rate: 98 bpm BP: 128 / 74 mmHg Manager Mall: YR/TO Referring MD: Kalli Garcia MD Symptoms: CP, EKG changes Study Quality: Fair ECG Rhythm: Sinus Conclusions: - The left ventricular systolic function is normal. The calculated ejection fraction is 56% by biplane method. - Possible distal inferoseptal hypokinesis, but appearance could also be due to hypertrophy in the basal to mid septum. - No obvious valvular pathology seen on this study. Findings Left Ventricle Normal left ventricular cavity size. There is mildly increased left ventricular wall thickness. The left ventricular systolic function is normal. The calculated ejection fraction is 56% by biplane method. Diastolic function is normal for age. There is moderate septal asymmetric hypertrophy. Possible distal inferoseptal hypokinesis, but appearance could also be due to hypertrophy in the basal to mid septum. Right Ventricle Normal right ventricular cavity size and systolic function. Atria The left atrium is mildly dilated. The right atrium is normal in size. Aortic Valve There is a normal trileaflet aortic valve. There is no aortic valve stenosis. There is no aortic valve regurgitation. Mitral Valve The mitral valve appears normal. There is mild mitral annular calcification. There is trace mitral valve regurgitation. There is no mitral valve stenosis. Pulmonic Valve The pulmonic valve was not well visualized. Tricuspid Valve Normal tricuspid valve structure. There is trace tricuspid valve regurgitation. The pulmonary artery systolic pressure is normal. Great Vessels The asc aorta is normal in size. Venous The inferior vena cava is normal in size and collapses greater than 50% with inspiration. Pericardium/Pleural There is no evidence of pericardial effusion. Prior Study Comparison No prior study available for comparison. Recommendations, Care & Conclusions No obvious valvular pathology seen on this study. Measurements 2D Linear Measurements IVSd: 1.47 0.6-0.9/0.6-1.0 cm LVIDd: 4.53 3.9-5.3/4.2-5.9 cm LVIDd Index: 2.18 2.4-3.2/2.2-3.1 cm/m2 LVIDs: 3.07 2.0-3.6 cm LVPWd: 1.16 0.7-1.1 cm LA Diam: 4.00 2.7-3.8/3.0-4.0 cm LAIDs Index: 1.92 1.5-2.3 cm/m2 LV Mass: 285.07 67-162/88-224 g LV Mass Index: 137.05 43-95/49-115 g/m2 LVOT Diam: 2.30 3.0+(-)1.3 cm 2D Systolic Function EF 4C: 50.60 >55% EF 2C: 60.50 >55% EF BiP: 55.60 >55% Aortic Valve AoV Pk Dimitris: 1.75 AoV Mn Dimitris: 1.14 AoV VTI: 0.31 AoV Pk Grad: 12.00 Aov Mn Grad: 6.00 TEDDY Cont.VTI: 2.38 LVOT LVOT Pk Dimitris: 0.90 LVOT Mn Dimitris: 0.63 LVOT VTI: 0.18 LVOT Pk Grad: 3.00 LVOT Mn Grad: 2.00 LVOT Diam: 2.30 LVOT Area: 4.15 Right Ventricle TAPSE (mm): 27.70 TVS' Dimitris: 13.20 Tricuspid Valve TR Pk Dimitris: 2.34 TR Pk Grad: 22.00 RA Press: 3.00 RVSP: 25.00 Great Vessels Aorta Sinus of Valsalva: 3.79 2.0-3.[address] [place]: 3.17 1.7-3.4 cm Ao Asc: 3.60 2.1-3.4 cm Updated in Other Vendor System with Status of Final Chapo Gorman MD electronically signed on 04/06/2022 9:10:44 AM with status of Final
[2022-04-05 07:09] LABS: Anion Gap 13 (12-20); Blood Urea Nitrogen 11 mg/dL (9-16); Calcium 7.6 mg/dL (8.4-10.2); Carbon Dioxide 21 mmol/L (22-29); Chloride 105 mmol/L (96-108); Creatinine Clr Calc Pharmacy 132.7; Estimated Glomerular Filt Rate > 60; Glucose Random 161 mg/dL (60-115); Potassium 3.9 mmol/L (3.3-5.1); Sodium 135 mmol/L (135-145)
[2022-04-05 07:33] LABS: Glucose, Whole Blood 157 mg/dL (60-115)
[2022-04-05] MEDS: Lidocaine 4 % Patch ADH..PATCH 1 PATCH TRANSDERMA (09:03)
[2022-04-05] MEDS: 0.9 % Sodium Chloride Flush 3 ML SYRINGE IVFLUSH ×3 (09:03→21:31)
[2022-04-05] MEDS: Atorvastatin Calcium 10 MG TABLET PO (09:04)
[2022-04-05] MEDS: Pregabalin 150 MG CAPSULE 300 MG PO ×2 (09:04→21:30)
[2022-04-05] MEDS: Gabapentin 400 MG CAPSULE 800 MG PO ×3 (09:04→21:30)
[2022-04-05] MEDS: FLUoxetine HCl 20 MG CAPSULE 40 MG PO (09:04)
--- NOTE | 2022-04-05 10:00 | MHC.CM.PN ---
CM met with Patient at bedside. Patient lives in a house with his and he required no services nor DME PHYSIOTHERAPY AIDE. Home no services is the goal and CM has initiated and will follow for dc planning. Patient has received Moderna/Covid vax X4 and his PCP is DR. Burak Orr.
--- NOTE | 2022-04-05 10:24 | P.CONCA_ITS ---
History of Present Illness History of Present Illness Date of Service: 04/05/22 Chief complaint: severe anemia, ekg changes Narrative: This is a cardiology consultation regarding abnormal EKG and elevated troponins. Patient does not have any known cardiac issues including coronary artery disease or myocardial infarction or cardiomyopathy or in fact anything cardiac related. Over the last few days, he states that he has not been doing good. A feeling of instability and lack of balance is the best way could describe it. No clear syncopal or presyncopal episodes. He feels as though his brain cannot control his body- in his own words. When he walks short distances, he feels as though the heart is pounding and he can feel a knot sensation but he cannot call it as a pain. Upon workup, he was found to have severe anemia. EKG had lateral ST-T changes and slight increase in troponins and hence we have been asked to see him. He is being transfused from the anemia standpoint. Otherwise, he states that he takes low-dose aspirin. However no coronary events in the past per patient. History of remote gastric bypass surgery. Review of Systems Review of Systems: Yes all other systems are reviewed and are negative Constitutional: Constitutional: Reports as per HPI Eyes: Eyes: Reports as per HPI ENT: Reports as per HPI Cardiovascular: Cardiovascular: Reports as per HPI, Denies acrocyanosis, Denies cool extremities, Reports chest pain, Denies leg edema, Denies lightheadedness, Reports palpitations and Denies dyspnea Respiratory: Respiratory: Reports as per HPI, Reports no additional respiratory complaints and Denies dyspnea Gastrointestinal: Gastrointestinal: Reports as per HPI and Reports no additional gastrointestinal complaints Genitourinary: Genitourinary: Reports no additional male genitourinary complaints and Reports as per HPI Musculoskeletal: Musculoskeletal: Reports no additional musculoskeletal complaints and Reports as per HPI Integumentary/Breasts: Skin/Breast: Reports system reviewed and no additional complaints, except as docu Neurologic: Reports system reviewed and no additional complaints, except as documented and Reports as per HPI Psychiatric: Psychiatric: Reports no additional psychiatric complaints and Reports as per HPI Endocrine: Endocrine: Reports no additional endocrine complaints, Reports as per HPI and Reports palpitations Hematologic/Lymphatic: Hematologic/Lymphatic: Reports no additional hannah tologic/lymphatic complaints and Reports as per HPI Allergic/Immunologic: Allergic/Immunologic: Reports no additional allergic/immunologic complaints and Reports as per HPI [facility] Past Medical History Medical History (Updated 04/05/22 @ 10:42 by Chapo Gorman MD) ADHD Depression GERD (gastroesophageal reflux disease) Gout Hypertension Hypertriglyceridemia Periodic limb movement disorder Sleep apnea Type 2 diabetes mellitus Family History Family History (Updated 04/05/22 @ 10:28 by Chapo Gorman MD) Mother No problems noted. Surgical History Surgical History (Updated 04/04/22 @ 13:08 by Kalli Garcia MD) H/O gastric bypass Social History Social History Household Members: Spouse and Other Housing: House Do you presently have visiting nurse or other home services: No Alcohol intake: never Patient Tobacco Use Status: Never used Tobacco Substance Use Type: Marijuana service: No Current occupational status: unemployed Meds Allergies Allergy/AdvReac Type Severity Reaction Status Date / Time No Known Allergies Allergy Verified 04/04/22 12:19 lisinopril Allergy Unknown cough Uncoded 05/16/17 00:00 protonix Allergy Unknown ringing in Uncoded 05/16/17 00:00 ear Active Medications: Current Medications Acetaminophen (Acetaminophen 325 Mg Tablet) 650 mg PO Q6H PRN PRN Reason: Pain, Mild (Pain Scale 1-3) Atorvastatin Calcium (Atorvastatin Calcium 10 Mg Tablet) 10 mg PO DAILY QUYNH Last Admin: 04/05/22 09:04 Dose: 10 mg Bisacodyl (Bisacodyl 5 Mg Tablet.Dr) 10 mg PO ONCE ONE Stop: 04/05/22 16:12 Dextrose (Dextrose 50 % 25 Gm/50 Ml Syringe) 25 gm IVPUSH Q15M PRN; Protocol PRN Reason: per Hypoglycemia Standing Ord. Diphenhydramine HCl (Diphenhydramine Hcl 25 Mg Tablet) 25 mg PO BEDTIME PRN PRN Reason: Sleep Last Admin: 04/05/22 00:41 Dose: 25 mg Fluoxetine HCl (Fluoxetine Hcl 20 Mg Capsule) 40 mg PO DAILY QUYNH Last Admin: 04/05/22 09:04 Dose: 40 mg Fluticasone Propionate (Fluticasone Propionate Nasal 16 Gm [place]) 2 spray NOSTRIL-B DAILY PRN PRN Reason: Allergy Symptoms Gabapentin (Gabapentin 400 Mg Capsule) 800 mg PO TID QUYNH Last Admin: 04/05/22 09:04 Dose: 800 mg Glucose (Glucose Gel 15 Gm Gel..Gram.) 15 gm PO Q15M PRN; Protocol PRN Reason: per Hypoglycemia Standing Ord. Insulin Human Lispro (Insulin Lispro 100 Unit/Ml 3 Ml Vial) 0 unit SUBCUT QIDACHS [facility]; Protocol Lidocaine (Lidocaine 4 % Patch Adh..Patch) 1 patch TRANSDERMA DAILY [facility] Last Admin: 04/05/22 09:03 Dose: 1 patch Omeprazole (Omeprazole 40 Mg Capsule.Dr) 40 mg PO BID@0630,1630 [facility] Last Admin: 04/05/22 06:51 Dose: Not Given Ondansetron HCl (Ondansetron Hcl 4 Mg/2 Ml Vial) 4 mg IVPUSH Q8H PRN PRN Reason: Nausea and Vomiting Oxycodone HCl (Oxycodone Hcl Immed Release 5 Mg Tablet) 5 mg PO Q6H PRN PRN Reason: Breakthrough Pain Last Admin: 04/05/22 00:41 Dose: 5 mg Pharmacy Consult (Consult Rx Perform Med Rec) 1 each MISCELLANE ONCE PRN PRN Reason: Consult order Polyethylene Glycol/Electrolytes (Peg 3350/Na Sulf,Bicarb,Cl/Kcl 4,000 Ml Soln.Recon) 4,000 ml PO ONCE ONE Stop: 04/05/22 19:36 Pregabalin (Pregabalin 150 Mg Capsule) 300 mg PO BID [facility] Last Admin: 04/05/22 09:04 Dose: 300 mg Sodium Chloride (0.9 % Sodium Chloride Flush 3 Ml Syringe) 3 ml IVFLUSH QSHIFT [facility] Last Admin: 04/05/22 09:03 Dose: 3 ml Home Medications Medication Instructions Recorded Confirmed Last Taken Type aspirin 81 mg tablet,delayed 1 tab PO DAILY 04/04/22 04/04/22 04/04/22 History release atorvastatin 10 mg tablet 1 tab PO DAILY 04/04/22 04/04/22 04/04/22 History epinephrine 0.3 mg/0.3 mL 0.3 mg IM USEASDIRECTD PRN 04/04/22 04/04/22 Unknown History injection, auto-injector Anaphylaxis fluoxetine 40 mg capsule 1 cap PO DAILY 04/04/22 04/04/22 04/04/22 History fluticasone propionate 50 2 spray intranasal DAILY PRN 04/04/22 04/04/22 Unknown History mcg/actuation nasal Allergy Symptoms spray,suspension gabapentin 800 mg tablet 1 tab PO TID 04/04/22 04/04/22 04/04/22 History lidocaine 5 % topical patch 1 patch topical DAILY 04/04/22 04/04/22 03/30/22 History losartan 50 mg tablet 1 tab PO BEDTIME 04/04/22 04/04/22 03/31/22 History metformin 500 mg tablet 1 tab PO BIDWM 04/04/22 04/04/22 04/04/22 History oxycodone-acetaminophen 10 mg-325 1 tab PO QID 04/04/22 04/04/22 04/04/22 History mg tablet pregabalin 300 mg capsule 1 cap PO BID 04/04/22 04/04/22 04/04/22 History Physical Exam Vital Signs: Vital Signs: Last Vital Signs Temp 98.6 F 04/05/22 07:42 Pulse 99 04/05/22 07:42 Resp 16 04/05/22 07:42 BP 152/83 H 04/05/22 07:42 Pulse Ox 98 04/05/22 07:42 O2 Del Method 04/05/22 07:42 BMI result Body Mass Index 29.9 Objective Labs and Meds Result diagrams: 04/05/22 06:00 04/05/22 06:00 Lab results: Laboratory Results - last 24 hr 04/04/22 04/04/22 04/04/22 14:08 15:14 15:14 WBC 8.2 RBC 1.79 L Hgb 4.5 L* Hct 14.7 L* MCV 82.1 MCH 25.1 L MCHC 30.6 L RDW 13.1 Plt Count 388 MPV 9.7 Immature Gran % (Auto) 0.7 H Neut % (Auto) 65.0 Lymph % (Auto) 22.2 [place] % (Auto) 10.1 Eos % (Auto) 1.3 Baso % (Auto) 0.7 Lymph # (Auto) 1.8 [place] # (Auto) 0.8 Eos # (Auto) 0.1 Baso # (Auto) 0.1 Abs Immat Gran (auto) 0.06 H Absolute Neuts (auto) 5.3 Absolute Nucleated RBC 0.020 H Nucleated RBC % (auto) 0.2 PT 13.4 H INR 1.2 H Sodium Potassium Chloride Carbon Dioxide Anion Gap BUN Creatinine Estim Creat Clear Calc Estimated GFR POC Glucose Random Glucose Calcium Magnesium Iron TIBC % Saturation Unsat Iron Binding Ferritin Total Bilirubin Direct Bilirubin AST ALT Alkaline Phosphatase Troponin I High Sens Total Protein Albumin Vitamin B12 Folate TSH Urine Color Urine Appearance Urine pH Ur Specific [place] Urine Protein Urine Glucose (UA) Urine Ketones Urine Blood Urine Nitrite Ur Leukocyte Esterase Urine RBC Urine WBC Ur Squamous Epith Cells Urine Bacteria Stool Occult Blood Urine Opiates Screen Urine Fentanyl Screen Ur Barbiturates Screen Ur Phencyclidine Scrn Ur Amphetamines Screen U Benzodiazepines Scrn Urine Cocaine Screen U Marijuana (THC) Screen Ethyl Alcohol COVID-19 ([facility]) Negative COVID-19 Clin Com See Note Blood Type Antibody Screen Crossmatch 04/04/22 04/04/22 04/04/22 15:14 15:14 15:14 WBC RBC Hgb Hct MCV MCH MCHC RDW Plt Count MPV Immature Gran % (Auto) Neut % (Auto) Lymph % (Auto) [place] % (Auto) Eos % (Auto) Baso % (Auto) Lymph # (Auto) [place] # (Auto) Eos # (Auto) Baso # (Auto) Abs Immat Gran (auto) Absolute Neuts (auto) Absolute Nucleated RBC Nucleated RBC % (auto) PT INR Sodium 136 Potassium 3.5 Chloride 104 Carbon Dioxide 22 Anion Gap 14 BUN 9 Creatinine 0.74 Estim Creat Clear Calc 121.9 Estimated GFR > 60 POC Glucose Random Glucose 136 H Calcium 8.0 L Magnesium 1.7 Iron 9 L TIBC 384 % Saturation 2 L Unsat Iron Binding 375 Ferritin 5 L Total Bilirubin 0.4 Direct Bilirubin 0.2 AST 11 ALT 9 Alkaline Phosphatase 50 Troponin I High Sens 192.5 H* Total Protein 5.8 L Albumin 3.6 Vitamin B12 430 Folate 17.2 TSH Urine Color Urine Appearance Urine pH Ur Specific [place] Urine Protein Urine Glucose (UA) Urine Ketones Urine Blood Urine Nitrite Ur Leukocyte Esterase Urine RBC Urine WBC Ur Squamous Epith Cells Urine Bacteria Stool Occult Blood Urine Opiates Screen Urine Fentanyl Screen Ur Barbiturates Screen Ur Phencyclidine Scrn Ur Amphetamines Screen U Benzodiazepines Scrn Urine Cocaine Screen U Marijuana (THC) Screen Ethyl Alcohol COVID-19 ([facility]) COVID-19 Clin Com Blood Type Antibody Screen Crossmatch 04/04/22 04/04/22 04/04/22 15:14 15:14 16:07 WBC RBC Hgb Hct MCV MCH MCHC RDW Plt Count MPV Immature Gran % (Auto) Neut % (Auto) Lymph % (Auto) [place] % (Auto) Eos % (Auto) Baso % (Auto) Lymph # (Auto) [place] # (Auto) Eos # (Auto) Baso # (Auto) Abs Immat Gran (auto) Absolute Neuts (auto) Absolute Nucleated RBC Nucleated RBC % (auto) PT INR Sodium Potassium Chloride Carbon Dioxide Anion Gap BUN Creatinine Estim Creat Clear Calc Estimated GFR POC Glucose Random Glucose Calcium Magnesium Iron TIBC % Saturation Unsat Iron Binding Ferritin Total Bilirubin Direct Bilirubin AST ALT Alkaline Phosphatase Troponin I High Sens Total Protein Albumin Vitamin B12 Folate TSH 0.37 Urine Color Urine Appearance Urine pH Ur Specific [place] Urine Protein Urine Glucose (UA) Urine Ketones Urine Blood Urine Nitrite Ur Leukocyte Esterase Urine RBC Urine WBC Ur Squamous Epith Cells Urine Bacteria Stool Occult Blood Urine Opiates Screen Urine Fentanyl Screen Ur Barbiturates Screen Ur Phencyclidine Scrn Ur Amphetamines Screen U Benzodiazepines Scrn Urine Cocaine Screen U Marijuana (THC) Screen Ethyl Alcohol < 10 COVID-19 ([facility]) COVID-19 Clin Com Blood Type A Positive Antibody Screen NEGATIVE Crossmatch See Detail 04/04/22 04/04/22 04/04/22 16:11 17:42 17:42 WBC RBC Hgb Hct MCV MCH MCHC RDW Plt Count MPV Immature Gran % (Auto) Neut % (Auto) Lymph % (Auto) [place] % (Auto) Eos % (Auto) Baso % (Auto) Lymph # (Auto) [place] # (Auto) Eos # (Auto) Baso # (Auto) Abs Immat Gran (auto) Absolute Neuts (auto) Absolute Nucleated RBC Nucleated RBC % (auto) PT INR Sodium Potassium Chloride Carbon Dioxide Anion Gap BUN Creatinine Estim Creat Clear Calc Estimated GFR POC Glucose Random Glucose Calcium Magnesium Iron TIBC % Saturation Unsat Iron Binding Ferritin Total Bilirubin Direct Bilirubin AST ALT Alkaline Phosphatase Troponin I High Sens Total Protein Albumin Vitamin B12 Folate TSH Urine Color YELLOW Urine Appearance CLEAR Urine pH 7.5 Ur Specific [place] 1.010 Urine Protein NEG Urine Glucose (UA) 100 H Urine Ketones NEG Urine Blood TRACE Urine Nitrite NEG Ur Leukocyte Esterase NEG Urine RBC 5-9 H Urine WBC 5-9 H Ur Squamous Epith Cells TRACE Urine Bacteria NONE Stool Occult Blood POSITIVE Urine Opiates Screen POSITIVE H Urine Fentanyl Screen Not Detected Ur Barbiturates Screen Not Detected Ur Phencyclidine Scrn Not Detected Ur Amphetamines Screen Not Detected U Benzodiazepines Scrn Not Detected Urine Cocaine Screen Not Detected U Marijuana (THC) Screen POSITIVE H Ethyl Alcohol COVID-19 ([facility]) COVID-19 Clin Com Blood Type Antibody Screen Crossmatch 04/04/22 04/04/22 04/04/22 17:52 21:19 22:46 WBC 10.4 RBC 2.20 L D Hgb 6.0 L* D Hct 18.7 L* D MCV 85.0 MCH 27.3 MCHC 32.1 RDW 14.4 Plt Count 351 MPV 9.9 Immature Gran % (Auto) Neut % (Auto) Lymph % (Auto) [place] % (Auto) Eos % (Auto) Baso % (Auto) Lymph # (Auto) [place] # (Auto) Eos # (Auto) Baso # (Auto) Abs Immat Gran (auto) Absolute Neuts (auto) Absolute Nucleated RBC 0.040 H Nucleated RBC % (auto) 0.4 H PT INR Sodium Potassium Chloride Carbon Dioxide Anion Gap BUN Creatinine Estim Creat Clear Calc Estimated GFR POC Glucose 163 H Random Glucose Calcium Magnesium Iron TIBC % Saturation Unsat Iron Binding Ferritin Total Bilirubin Direct Bilirubin AST ALT Alkaline Phosphatase Troponin I High Sens 164.6 H* Total Protein Albumin Vitamin B12 Folate TSH Urine Color Urine Appearance Urine pH Ur Specific [place] Urine Protein Urine Glucose (UA) Urine Ketones Urine Blood Urine Nitrite Ur Leukocyte Esterase Urine RBC Urine WBC Ur Squamous Epith Cells Urine Bacteria Stool Occult Blood Urine Opiates Screen Urine Fentanyl Screen Ur Barbiturates Screen Ur Phencyclidine Scrn Ur Amphetamines Screen U Benzodiazepines Scrn Urine Cocaine Screen U Marijuana (THC) Screen Ethyl Alcohol COVID-19 ([facility]) COVID-19 Clin Com Blood Type Antibody Screen Crossmatch 04/05/22 04/05/22 04/05/22 06:00 06:00 07:30 WBC 8.9 RBC 2.65 L D Hgb 7.3 L D Hct 22.4 L MCV 84.5 MCH 27.5 MCHC 32.6 RDW 13.8 Plt Count 338 MPV 10.5 Immature Gran % (Auto) 1.0 H Neut % (Auto) 67.1 Lymph % (Auto) 17.7 L [place] % (Auto) 11.7 H Eos % (Auto) 1.6 Baso % (Auto) 0.9 Lymph # (Auto) 1.6 [place] # (Auto) 1.0 Eos # (Auto) 0.1 Baso # (Auto) 0.1 Abs Immat Gran (auto) 0.09 H Absolute Neuts (auto) 6.0 Absolute Nucleated RBC 0.060 H Nucleated RBC % (auto) 0.7 H PT INR Sodium 135 Potassium 3.9 Chloride 105 Carbon Dioxide 21 L Anion Gap 13 BUN 11 Creatinine 0.68 Estim Creat Clear Calc 132.7 Estimated GFR > 60 POC Glucose 157 H Random Glucose 161 H Calcium 7.6 L Magnesium Iron TIBC % Saturation Unsat Iron Binding Ferritin Total Bilirubin Direct Bilirubin AST ALT Alkaline Phosphatase Troponin I High Sens Total Protein Albumin Vitamin B12 Folate TSH Urine Color Urine Appearance Urine pH Ur Specific [place] Urine Protein Urine Glucose (UA) Urine Ketones Urine Blood Urine Nitrite Ur Leukocyte Esterase Urine RBC Urine WBC Ur Squamous Epith Cells Urine Bacteria Stool Occult Blood Urine Opiates Screen Urine Fentanyl Screen Ur Barbiturates Screen Ur Phencyclidine Scrn Ur Amphetamines Screen U Benzodiazepines Scrn Urine Cocaine Screen U Marijuana (THC) Screen Ethyl Alcohol COVID-19 ([facility]) COVID-19 Clin Com Blood Type Antibody Screen Crossmatch ECG Interpretation: EKG with sinus tachycardia, 105/Min; nonspecific ST-T changes in the lateral leads. In the repeat EKG that is more prominent. Imaging Radiologist's impression: Impressions Head CT 04/04/22 13:21 IMPRESSION: No acute intracranial pathology. Assessment and Plan (1) Anemia: Status: Acute (2) Abnormal EKG: Status: Acute (3) Elevated troponin: Status: Acute (4) Preoperative cardiovascular examination: Status: Acute Plan Patient was severely anemic with a hemoglobin of 4.5 on arrival. Currently it is 7.3. Creatinine is 0.68. High sensitivity troponin 192 and 164. Possibly, GI blood loss later aspirin use. From the cardiac standpoint, most likely severe anemia causing myocardial strain. Troponin elevation again most likely related to this. At this time, consider transfusing to bring hemoglobin close to 10. Baseline echocardiogram can be performed for LVEF and wall motion. Unless there is any major abnormality in this, should be able to proceed with GI workup to identify the source of bleeding. Cardiac risk is considered low to intermediate. Ideally should be transfused further before endoscopy. Procedures Date of Service Date of Service: 04/05/22
--- NOTE | 2022-04-05 11:58 | P.PNIM_ITS ---
Subjective Subjective Date of Service: 04/05/22 Interval History: cc: weakness interval history:feeling stronger today Cardiovascular Cardiovascular: Reports no additional cardiovascular complaints Respiratory Respiratory: Reports no additional respiratory complaints Physical Exam Vital Signs: Vital Signs: Last Vital Signs Temp 98.6 F 04/05/22 07:42 Pulse 99 04/05/22 07:42 Resp 16 04/05/22 07:42 BP 152/83 H 04/05/22 07:42 Pulse Ox 98 04/05/22 07:42 O2 Del Method 04/05/22 07:42 BMI result Body Mass Index 29.9 General: AO X 3, no acute distress, pallor Resp: CTA bilateral, no accessory muscles used CVS: S1,S2,RRR GI: soft, non tender, non distended Neuro: motor grossly intact, alert Psych: appropriate affect, appropriate insight Objective Data Active Medications Acetaminophen (Acetaminophen 325 Mg Tablet) 650 mg PO Q6H PRN PRN Reason: Pain, Mild (Pain Scale 1-3) Atorvastatin Calcium (Atorvastatin Calcium 10 Mg Tablet) 10 mg PO DAILY [facility] Last Admin: 04/05/22 09:04 Dose: 10 mg Documented By: AMRITA Bisacodyl (Bisacodyl 5 Mg Tablet.) 10 mg PO ONCE ONE Stop: 04/05/22 16:12 Dextrose (Dextrose 50 % 25 Gm/50 Ml Syringe) 25 gm IVPUSH Q15M PRN; Protocol PRN Reason: per Hypoglycemia Standing Ord. Diphenhydramine HCl (Diphenhydramine Hcl 25 Mg Tablet) 25 mg PO BEDTIME PRN PRN Reason: Sleep Last Admin: 04/05/22 00:41 Dose: 25 mg Documented By: MOIRA Fluoxetine HCl (Fluoxetine Hcl 20 Mg Capsule) 40 mg PO DAILY [facility] Last Admin: 04/05/22 09:04 Dose: 40 mg Documented By: AMRITA Fluticasone Propionate (Fluticasone Propionate Nasal 16 Gm [place]) 2 spray NOSTRIL-B DAILY PRN PRN Reason: Allergy Symptoms Gabapentin (Gabapentin 400 Mg Capsule) 800 mg PO TID [facility] Last Admin: 04/05/22 09:04 Dose: 800 mg Documented By: AMRITA Glucose (Glucose Gel 15 Gm Gel..Gram.) 15 gm PO Q15M PRN; Protocol PRN Reason: per Hypoglycemia Standing Ord. Insulin Human Lispro (Insulin Lispro 100 Unit/Ml 3 Ml Vial) 0 unit SUBCUT QIDACHS [facility]; Protocol Lidocaine (Lidocaine 4 % Patch Adh..Patch) 1 patch TRANSDERMA DAILY [facility] Last Admin: 04/05/22 09:03 Dose: 1 patch Documented By: AMRITA Omeprazole (Omeprazole 40 Mg Capsule.Dr) 40 mg PO BID@0630,1630 [facility] Last Admin: 04/05/22 06:51 Dose: Not Given Documented By: MOIRA Non-Admin Reason: Patient Refused Ondansetron HCl (Ondansetron Hcl 4 Mg/2 Ml Vial) 4 mg IVPUSH Q8H PRN PRN Reason: Nausea and Vomiting Oxycodone HCl (Oxycodone Hcl Immed Release 5 Mg Tablet) 5 mg PO Q6H PRN PRN Reason: Breakthrough Pain Last Admin: 04/05/22 00:41 Dose: 5 mg Documented By: MOIRA Pharmacy Consult (Consult Rx Perform Med Rec) 1 each MISCELLANE ONCE PRN PRN Reason: Consult order Polyethylene Glycol/Electrolytes (Peg 3350/Na Sulf,Bicarb,Cl/Kcl 4,000 Ml Soln.Recon) 4,000 ml PO ONCE ONE Stop: 04/05/22 19:36 Pregabalin (Pregabalin 150 Mg Capsule) 300 mg PO BID [facility] Last Admin: 04/05/22 09:04 Dose: 300 mg Documented By: AMRITA Sodium Chloride (0.9 % Sodium Chloride Flush 3 Ml Syringe) 3 ml IVFLUSH QSHIFT [facility] Last Admin: 04/05/22 09:03 Dose: 3 ml Documented By: AMRITA Labs CBC & Chem 7: 04/05/22 06:00 04/05/22 06:00 Labs: Laboratory Results - last 24 hr 04/04/22 04/04/22 04/04/22 14:08 15:14 15:14 MCV 82.1 MCH 25.1 L MCHC 30.6 L RDW 13.1 Plt Count 388 MPV 9.7 Immature Gran % (Auto) 0.7 H Neut % (Auto) 65.0 Lymph % (Auto) 22.2 Jay % (Auto) 10.1 Eos % (Auto) 1.3 Baso % (Auto) 0.7 Lymph # (Auto) 1.8 Jay # (Auto) 0.8 Eos # (Auto) 0.1 Baso # (Auto) 0.1 Abs Immat Gran (auto) 0.06 H Absolute Neuts (auto) 5.3 Absolute Nucleated RBC 0.020 H Nucleated RBC % (auto) 0.2 Smear Path Review SEE NOTE PT 13.4 H INR 1.2 H Anion Gap Estim Creat Clear Calc Estimated GFR POC Glucose Random Glucose Calcium Magnesium Iron TIBC % Saturation Unsat Iron Binding Ferritin Total Bilirubin Direct Bilirubin AST ALT Alkaline Phosphatase Troponin I High Sens Total Protein Albumin Vitamin B12 Folate TSH Urine Color Urine Appearance Urine pH Ur Specific [place] Urine Protein Urine Glucose (UA) Urine Ketones Urine Blood Urine Nitrite Ur Leukocyte Esterase Urine RBC Urine WBC Ur Squamous Epith Cells Urine Bacteria Stool Occult Blood Urine Opiates Screen Urine Fentanyl Screen Ur Barbiturates Screen Ur Phencyclidine Scrn Ur Amphetamines Screen U Benzodiazepines Scrn Urine Cocaine Screen U Marijuana (THC) Screen Ethyl Alcohol COVID-19 ([facility]) Negative COVID-19 Clin Com See Note Blood Type Antibody Screen Crossmatch 04/04/22 04/04/22 04/04/22 15:14 15:14 15:14 MCV MCH MCHC RDW Plt Count MPV Immature Gran % (Auto) Neut % (Auto) Lymph % (Auto) Jay % (Auto) Eos % (Auto) Baso % (Auto) Lymph # (Auto) Jay # (Auto) Eos # (Auto) Baso # (Auto) Abs Immat Gran (auto) Absolute Neuts (auto) Absolute Nucleated RBC Nucleated RBC % (auto) Smear Path Review PT INR Anion Gap 14 Estim Creat Clear Calc 121.9 Estimated GFR > 60 POC Glucose Random Glucose 136 H Calcium 8.0 L Magnesium 1.7 Iron 9 L TIBC 384 % Saturation 2 L Unsat Iron Binding 375 Ferritin 5 L Total Bilirubin 0.4 Direct Bilirubin 0.2 AST 11 ALT 9 Alkaline Phosphatase 50 Troponin I High Sens 192.5 H* Total Protein 5.8 L Albumin 3.6 Vitamin B12 430 Folate 17.2 TSH Urine Color Urine Appearance Urine pH Ur Specific [place] Urine Protein Urine Glucose (UA) Urine Ketones Urine Blood Urine Nitrite Ur Leukocyte Esterase Urine RBC Urine WBC Ur Squamous Epith Cells Urine Bacteria Stool Occult Blood Urine Opiates Screen Urine Fentanyl Screen Ur Barbiturates Screen Ur Phencyclidine Scrn Ur Amphetamines Screen U Benzodiazepines Scrn Urine Cocaine Screen U Marijuana (THC) Screen Ethyl Alcohol COVID-19 ([facility]) COVID-19 Clin Com Blood Type Antibody Screen Crossmatch 04/04/22 04/04/22 04/04/22 15:14 15:14 16:07 MCV MCH MCHC RDW Plt Count MPV Immature Gran % (Auto) Neut % (Auto) Lymph % (Auto) Jay % (Auto) Eos % (Auto) Baso % (Auto) Lymph # (Auto) Jay # (Auto) Eos # (Auto) Baso # (Auto) Abs Immat Gran (auto) Absolute Neuts (auto) Absolute Nucleated RBC Nucleated RBC % (auto) Smear Path Review PT INR Anion Gap Estim Creat Clear Calc Estimated GFR POC Glucose Random Glucose Calcium Magnesium Iron TIBC % Saturation Unsat Iron Binding Ferritin Total Bilirubin Direct Bilirubin AST ALT Alkaline Phosphatase Troponin I High Sens Total Protein Albumin Vitamin B12 Folate TSH 0.37 Urine Color Urine Appearance Urine pH Ur Specific [place] Urine Protein Urine Glucose (UA) Urine Ketones Urine Blood Urine Nitrite Ur Leukocyte Esterase Urine RBC Urine WBC Ur Squamous Epith Cells Urine Bacteria Stool Occult Blood Urine Opiates Screen Urine Fentanyl Screen Ur Barbiturates Screen Ur Phencyclidine Scrn Ur Amphetamines Screen U Benzodiazepines Scrn Urine Cocaine Screen U Marijuana (THC) Screen Ethyl Alcohol < 10 COVID-19 ([facility]) COVID-19 Clin Com Blood Type A Positive Antibody Screen NEGATIVE Crossmatch See Detail 04/04/22 04/04/22 04/04/22 16:11 17:42 17:42 MCV MCH MCHC RDW Plt Count MPV Immature Gran % (Auto) Neut % (Auto) Lymph % (Auto) Jay % (Auto) Eos % (Auto) Baso % (Auto) Lymph # (Auto) Jay # (Auto) Eos # (Auto) Baso # (Auto) Abs Immat Gran (auto) Absolute Neuts (auto) Absolute Nucleated RBC Nucleated RBC % (auto) Smear Path Review PT INR Anion Gap Estim Creat Clear Calc Estimated GFR POC Glucose Random Glucose Calcium Magnesium Iron TIBC % Saturation Unsat Iron Binding Ferritin Total Bilirubin Direct Bilirubin AST ALT Alkaline Phosphatase Troponin I High Sens Total Protein Albumin Vitamin B12 Folate TSH Urine Color YELLOW Urine Appearance CLEAR Urine pH 7.5 Ur Specific [place] 1.010 Urine Protein NEG Urine Glucose (UA) 100 H Urine Ketones NEG Urine Blood TRACE Urine Nitrite NEG Ur Leukocyte Esterase NEG Urine RBC 5-9 H Urine WBC 5-9 H Ur Squamous Epith Cells TRACE Urine Bacteria NONE Stool Occult Blood POSITIVE Urine Opiates Screen POSITIVE H Urine Fentanyl Screen Not Detected Ur Barbiturates Screen Not Detected Ur Phencyclidine Scrn Not Detected Ur Amphetamines Screen Not Detected U Benzodiazepines Scrn Not Detected Urine Cocaine Screen Not Detected U Marijuana (THC) Screen POSITIVE H Ethyl Alcohol COVID-19 ([facility]) COVID-19 Clin Com Blood Type Antibody Screen Crossmatch 04/04/22 04/04/22 04/04/22 17:52 21:19 22:46 MCV 85.0 MCH 27.3 MCHC 32.1 RDW 14.4 Plt Count 351 MPV 9.9 Immature Gran % (Auto) Neut % (Auto) Lymph % (Auto) Jay % (Auto) Eos % (Auto) Baso % (Auto) Lymph # (Auto) Jay # (Auto) Eos # (Auto) Baso # (Auto) Abs Immat Gran (auto) Absolute Neuts (auto) Absolute Nucleated RBC 0.040 H Nucleated RBC % (auto) 0.4 H Smear Path Review PT INR Anion Gap Estim Creat Clear Calc Estimated GFR POC Glucose 163 H Random Glucose Calcium Magnesium Iron TIBC % Saturation Unsat Iron Binding Ferritin Total Bilirubin Direct Bilirubin AST ALT Alkaline Phosphatase Troponin I High Sens 164.6 H* Total Protein Albumin Vitamin B12 Folate TSH Urine Color Urine Appearance Urine pH Ur Specific [place] Urine Protein Urine Glucose (UA) Urine Ketones Urine Blood Urine Nitrite Ur Leukocyte Esterase Urine RBC Urine WBC Ur Squamous Epith Cells Urine Bacteria Stool Occult Blood Urine Opiates Screen Urine Fentanyl Screen Ur Barbiturates Screen Ur Phencyclidine Scrn Ur Amphetamines Screen U Benzodiazepines Scrn Urine Cocaine Screen U Marijuana (THC) Screen Ethyl Alcohol COVID-19 ([facility]) COVID-19 [facility] Com Blood Type Antibody Screen Crossmatch 04/05/22 04/05/22 04/05/22 06:00 06:00 07:30 MCV 84.5 MCH 27.5 MCHC 32.6 RDW 13.8 Plt Count 338 MPV 10.5 Immature Gran % (Auto) 1.0 H Neut % (Auto) 67.1 Lymph % (Auto) 17.7 L Jay % (Auto) 11.7 H Eos % (Auto) 1.6 Baso % (Auto) 0.9 Lymph # (Auto) 1.6 Jay # (Auto) 1.0 Eos # (Auto) 0.1 Baso # (Auto) 0.1 Abs Immat Gran (auto) 0.09 H Absolute Neuts (auto) 6.0 Absolute Nucleated RBC 0.060 H Nucleated RBC % (auto) 0.7 H Smear Path Review PT INR Anion Gap 13 Estim Creat Clear Calc 132.7 Estimated GFR > 60 POC Glucose 157 H Random Glucose 161 H Calcium 7.6 L Magnesium Iron TIBC % Saturation Unsat Iron Binding Ferritin Total Bilirubin Direct Bilirubin AST ALT Alkaline Phosphatase Troponin I High Sens Total Protein Albumin Vitamin B12 Folate TSH Urine Color Urine Appearance Urine pH Ur Specific [place] Urine Protein Urine Glucose (UA) Urine Ketones Urine Blood Urine Nitrite Ur Leukocyte Esterase Urine RBC Urine WBC Ur Squamous Epith Cells Urine Bacteria Stool Occult Blood Urine Opiates Screen Urine Fentanyl Screen Ur Barbiturates Screen Ur Phencyclidine Scrn Ur Amphetamines Screen U Benzodiazepines Scrn Urine Cocaine Screen U Marijuana (THC) Screen Ethyl Alcohol COVID-19 ([facility]) COVID-19 Clin Com Blood Type Antibody Screen Crossmatch Microbiology Microbiology Results: Microbiology 04/04/22 17:42 Urine Culture - Preliminary Urine clean catch - Urine rocha top No growth to date. Assessment and Plan (1) Elevated troponin: Status: Acute Plan 57M presented with weakness found to have severe anemia, elevated troponin weakness due to severe iron defeciency anemia likely acute blood loss anemia related to previous gastric bypass (anastamosis ulcer) vs iron malabsorption and noncompliance with supplement transfused 3 units prbc, hgb improved appropriately, will transfuse another unit, continue ppi, hold asa plan for egd/colonoscopy tomorrow elevated troponin, ekg changes likely strain from anemia, possible underlying cad, will need cardiac work up eventually plan for echo, cardio following urinary retention had 800cc after catheter placement, patient believes was positional, denies issues at home, will do trial of void htn holding antihypertensives while ruling out active bleed chronic weakness, aphasia following with neuro DM inuslin sliding scale, holding metformin dvt prophylaxis - mechanical due to bleed full code reason for continued hospitalization: ongoing need for transuision and moniutoring due to severe anemia, plan for inpatient scope. Quality Stroke Does the patient have a stroke diagnosis?: No VTE Prior VTE?: No VTE Risk Level:: Medical - moderate - high VTE Device Contraindication: N/A - Device Ordered VTE Drug Contraindication: Treatment Not Indicated
[2022-04-05 12:13] LABS: Glucose, Whole Blood 168 mg/dL (60-115)
[2022-04-05] MEDS: Insulin Lispro 100 UNIT/ML 3 ML VIAL SUBCUT (12:20)
--- NOTE | 2022-04-05 13:08 | PM.NEUROCN ---
History of Present Illness Data of Consult Service Date: 04/05/22 Primary Care Provider: Burak Orr III, MD HPI Reason for consult: Dizziness 57 years old man who carried previous diagnoses of obesity status post bariatric surgery, PTSD, seizure disorder, depression and anxiety, and peripheral neuropathy. He was seeing Dr. Evans and was prescribed gabapentin 800 mg 3 times a day for pain control of neuropathy. This time he came to hospital with progressive weakness and unsteadiness of gait. He said that he got up and then just could not support himself. In emergency room he was worked up and noted to have extremely low hemoglobin with go at positive stool. He had received multiple blood transfusions and now he was feeling better. Review of Systems Review of Systems: No recent cold or flu-like illness or trauma [facility] Past Medical History Medical History (Updated 04/05/22 @ 13:12 by Marcos Olmedo MD) ADHD Depression GERD (gastroesophageal reflux disease) Gout Hypertension Hypertriglyceridemia Periodic limb movement disorder Sleep apnea Type 2 diabetes mellitus Family History Family History (Updated 04/05/22 @ 10:28 by Chapo Gorman MD) Mother No problems noted. Surgical History Surgical History (Updated 04/04/22 @ 13:08 by Kalli Garcia MD) H/O gastric bypass Social History Social History Household Members: Spouse and Other Housing: House Do you presently have visiting nurse or other home services: No Alcohol intake: never Patient Tobacco Use Status: Never used Tobacco Substance Use Type: Marijuana service: No Current occupational status: unemployed Meds Allergies Allergy/AdvReac Type Severity Reaction Status Date / Time No Known Allergies Allergy Verified 04/04/22 12:19 lisinopril Allergy Unknown cough Uncoded 05/16/17 00:00 protonix Allergy Unknown ringing in Uncoded 05/16/17 00:00 ear Active Medications: Current Medications Acetaminophen (Acetaminophen 325 Mg Tablet) 650 mg PO Q6H PRN PRN Reason: Pain, Mild (Pain Scale 1-3) Atorvastatin Calcium (Atorvastatin Calcium 10 Mg Tablet) 10 mg PO DAILY [facility] Last Admin: 04/05/22 09:04 Dose: 10 mg Bisacodyl (Bisacodyl 5 Mg Tablet.) 10 mg PO ONCE ONE Stop: 04/05/22 16:12 Dextrose (Dextrose 50 % 25 Gm/50 Ml Syringe) 25 gm IVPUSH Q15M PRN; Protocol PRN Reason: per Hypoglycemia Standing Ord. Diphenhydramine HCl (Diphenhydramine Hcl 25 Mg Tablet) 25 mg PO BEDTIME PRN PRN Reason: Sleep Last Admin: 04/05/22 00:41 Dose: 25 mg Fluoxetine HCl (Fluoxetine Hcl 20 Mg Capsule) 40 mg PO DAILY [facility] Last Admin: 04/05/22 09:04 Dose: 40 mg Fluticasone Propionate (Fluticasone Propionate Nasal 16 Gm [place]) 2 spray NOSTRIL-B DAILY PRN PRN Reason: Allergy Symptoms Gabapentin (Gabapentin 400 Mg Capsule) 800 mg PO TID [facility] Last Admin: 04/05/22 09:04 Dose: 800 mg Glucose (Glucose Gel 15 Gm Gel..Gram.) 15 gm PO Q15M PRN; Protocol PRN Reason: per Hypoglycemia Standing Ord. Insulin Human Lispro (Insulin Lispro 100 Unit/Ml 3 Ml Vial) 0 unit SUBCUT QIDACHS [facility]; Protocol Last Admin: 04/05/22 12:20 Dose: 2 unit Lidocaine (Lidocaine 4 % Patch Adh..Patch) 1 patch TRANSDERMA DAILY [facility] Last Admin: 04/05/22 09:03 Dose: 1 patch Omeprazole (Omeprazole 40 Mg Capsule.Dr) 40 mg PO BID@0630,1630 [facility] Last Admin: 04/05/22 06:51 Dose: Not Given Ondansetron HCl (Ondansetron Hcl 4 Mg/2 Ml Vial) 4 mg IVPUSH Q8H PRN PRN Reason: Nausea and Vomiting Oxycodone HCl (Oxycodone Hcl Immed Release 5 Mg Tablet) 5 mg PO Q6H PRN PRN Reason: Breakthrough Pain Last Admin: 04/05/22 00:41 Dose: 5 mg Pharmacy Consult (Consult Rx Perform Med Rec) 1 each MISCELLANE ONCE PRN PRN Reason: Consult order Polyethylene Glycol/Electrolytes (Peg 3350/Na Sulf,Bicarb,Cl/Kcl 4,000 Ml Soln.Recon) 4,000 ml PO ONCE ONE Stop: 04/05/22 19:36 Pregabalin (Pregabalin 150 Mg Capsule) 300 mg PO BID [facility] Last Admin: 04/05/22 09:04 Dose: 300 mg Sodium Chloride (0.9 % Sodium Chloride Flush 3 Ml Syringe) 3 ml IVFLUSH QSHIFT [facility] Last Admin: 04/05/22 09:03 Dose: 3 ml Home Medications Medication Instructions Recorded Confirmed Last Taken Type aspirin 81 mg tablet,delayed 1 tab PO DAILY 04/04/22 04/04/22 04/04/22 History release atorvastatin 10 mg tablet 1 tab PO DAILY 04/04/22 04/04/22 04/04/22 History epinephrine 0.3 mg/0.3 mL 0.3 mg IM USEASDIRECTD PRN 04/04/22 04/04/22 Unknown History injection, auto-injector Anaphylaxis fluoxetine 40 mg capsule 1 cap PO DAILY 04/04/22 04/04/22 04/04/22 History fluticasone propionate 50 2 spray intranasal DAILY PRN 04/04/22 04/04/22 Unknown History mcg/actuation nasal Allergy Symptoms spray,suspension gabapentin 800 mg tablet 1 tab PO TID 04/04/22 04/04/22 04/04/22 History lidocaine 5 % topical patch 1 patch topical DAILY 04/04/22 04/04/22 03/30/22 History losartan 50 mg tablet 1 tab PO BEDTIME 04/04/22 04/04/22 03/31/22 History metformin 500 mg tablet 1 tab PO BIDWM 04/04/22 04/04/22 04/04/22 History oxycodone-acetaminophen 10 mg-325 1 tab PO QID 04/04/22 04/04/22 04/04/22 History mg tablet pregabalin 300 mg capsule 1 cap PO BID 04/04/22 04/04/22 04/04/22 History Physical Exam Vital Signs: Vital Signs: Last Vital Signs Temp 98.0 F 04/05/22 11:59 Pulse 93 04/05/22 11:59 Resp 18 04/05/22 11:59 BP 157/89 H 04/05/22 11:59 Pulse Ox 100 04/05/22 11:59 O2 Del Method 04/05/22 11:59 BMI result Body Mass Index 29.9 Neuro: Other: He is alert and awake with normal spontaneity of speech fluency comprehension and affect. Pupils are round reactive to light. Extraocular muscles are intact. Visual waller are full to confrontation. Face is symmetrical. There is no pronator drift. Deep tendon reflexes are trace to absent with flexor plantars. Results Labs CBC & Chem 7: 04/05/22 06:00 06/08/22 06:00 Labs: Short CBC 04/04/22 04/04/22 04/05/22 Range/Units 15:14 22:46 06:00 WBC 8.2 10.4 8.9 (4.8-10.8) X10*3/uL Hgb 4.5 L* 6.0 L* D 7.3 L D (14.0-18.0) g/dl Hct 14.7 L* 18.7 L* D 22.4 L (42.0-52.0) % Plt Count 388 351 338 (160-400) X10*3/uL BMP 04/04/22 04/05/22 15:14 06:00 Sodium 136 135 Potassium 3.5 3.9 Chloride 104 105 Carbon Dioxide 22 21 L BUN 9 11 Creatinine 0.74 0.68 Calcium 8.0 L 7.6 L Liver Function 04/04/22 Range/Units 15:14 Total Bilirubin 0.4 (0.0-1.0) mg/dL Direct Bilirubin 0.2 (0.0-0.5) mg/dL AST 11 (5-37) U/L ALT 9 (0-40) U/L Alkaline Phosphatase 50 (39-117) U/L Albumin 3.6 (3.5-5.0) g/dL Urine 04/04/22 Range/Units 17:42 Urine Color YELLOW Urine Appearance CLEAR Urine pH 7.5 (5.0-8.0) Ur Specific [place] 1.010 (1.005-1.025) Urine Protein NEG (NEG-TRACE) MG/DL Urine Glucose (UA) 100 H (NEG) MG/DL Noncontrast head CT did not reveal any significant abnormality Microbiology Microbiology Results: Microbiology 04/04/22 17:42 Urine clean catch - Urine rocha top Urine Culture - Preliminary No growth to date. Assessment and Plan (1) Lethargy: Status: Acute 57 years old man with generalized lethargy likely due to loss of hemoglobin from bleeding. He has underlying chronic peripheral neuropathy and associated discomfort treated with gabapentin. At this time there does not seem to be any acute neurological syndrome. Procedures Date of Service Date of Service: 04/05/22
[2022-04-05 16:31] LABS: Glucose, Whole Blood 141 mg/dL (60-115)
[2022-04-05 19:53] LABS: Glucose, Whole Blood 156 mg/dL (60-115)
[2022-04-05] MEDS: PEG 3350/Na Sulf,Bicarb,Cl/KCL 4,000 ML SOLN.RECON 4000 ML PO (21:30)
[2022-04-06] VITALS (8 sets, daily range): BP systolic 107–185; BP diastolic 61–99; PULSE 84–102; RESP 15–18; TEMP 35.8–37.2; O2SAT 98–100; BMI 27.0
[2022-04-06 07:14] LABS: Glucose, Whole Blood 152 mg/dL (60-115)
[2022-04-06 07:20] LABS: Hematocrit 25.8 % (42.0-52.0); Hemoglobin 8.5 g/dl (14.0-18.0); Mean Corpuscular HGB Conc 32.9 g/dl (31.0-36.0); Mean Corpuscular Hemoglobin 28.2 pg (27.0-33.0); Mean Corpuscular Volume 85.7 fL (80.0-98.0); Mean Platelet Volume 10.3 fL (9.4-12.4); NRBC Pct Auto 0.6 /100WBC (0.0-0.2); Platelet Count 344 X10*3/uL (160-400); Red Blood Count 3.01 X10*6/uL (4.60-5.80); Red Cell Distribution Width 14.3 % (11.0-16.0); White Blood Count 10.5 X10*3/uL (4.8-10.8)
[2022-04-06 07:31] LABS: Anion Gap 11 (12-20); Blood Urea Nitrogen 5 mg/dL (9-16); Calcium 7.8 mg/dL (8.4-10.2); Carbon Dioxide 23 mmol/L (22-29); Chloride 107 mmol/L (96-108); Creatinine Clr Calc Pharmacy 143.2; Estimated Glomerular Filt Rate > 60; Glucose Fasting 145 mg/dL (60-99); Potassium 3.8 mmol/L (3.3-5.1); Sodium 137 mmol/L (135-145)
[2022-04-06] MEDS: Pregabalin 150 MG CAPSULE 300 MG PO ×2 (08:41→21:38)
[2022-04-06] MEDS: FLUoxetine HCl 20 MG CAPSULE 40 MG PO (08:41)
[2022-04-06] MEDS: Atorvastatin Calcium 10 MG TABLET PO (08:41)
[2022-04-06] MEDS: Gabapentin 400 MG CAPSULE 800 MG PO ×2 (08:41→21:38)
[2022-04-06] MEDS: Losartan Potassium 50 MG TABLET PO ×2 (08:46→21:39)
--- NOTE | 2022-04-06 11:30 | HO.PM.IMPN ---
Subjective Subjective Date of Service: 04/06/22 Interval History: cc: weakness interval history:improved Cardiovascular Cardiovascular: Reports no additional cardiovascular complaints Respiratory Respiratory: Reports no additional respiratory complaints Physical Exam Vital Signs: Vital Signs: Last Vital Signs Temp 98.1 F 04/06/22 07:09 Pulse 102 H 04/06/22 07:09 Resp 18 04/06/22 07:09 BP 184/89 H 04/06/22 07:09 Pulse Ox 98 04/06/22 07:09 O2 Del Method 04/06/22 07:09 BMI result Body Mass Index 29.9 General: AO X 3, no acute distress, pallor Resp: CTA bilateral, no accessory muscles used CVS: S1,S2,RRR GI: soft, non tender, non distended Neuro: motor grossly intact, alert Psych: appropriate affect, appropriate insight Objective Data Active Medications Acetaminophen (Acetaminophen 325 Mg Tablet) 650 mg PO Q6H PRN PRN Reason: Pain, Mild (Pain Scale 1-3) Atorvastatin Calcium (Atorvastatin Calcium 10 Mg Tablet) 10 mg PO DAILY [facility] Last Admin: 04/06/22 08:41 Dose: 10 mg Documented By: ELZA Dextrose (Dextrose 50 % 25 Gm/50 Ml Syringe) 25 gm IVPUSH Q15M PRN; Protocol PRN Reason: per Hypoglycemia Standing Ord. Diphenhydramine HCl (Diphenhydramine Hcl 25 Mg Tablet) 25 mg PO BEDTIME PRN PRN Reason: Sleep Last Admin: 04/05/22 00:41 Dose: 25 mg Documented By: MOIRA Fluoxetine HCl (Fluoxetine Hcl 20 Mg Capsule) 40 mg PO DAILY [facility] Last Admin: 04/06/22 08:41 Dose: 40 mg Documented By: ELZA Fluticasone Propionate (Fluticasone Propionate Nasal 16 Gm [place]) 2 spray NOSTRIL-B DAILY PRN PRN Reason: Allergy Symptoms Gabapentin (Gabapentin 400 Mg Capsule) 800 mg PO TID [facility] Last Admin: 04/06/22 08:41 Dose: 800 mg Documented By: ELZA Glucose (Glucose Gel 15 Gm Gel..Gram.) 15 gm PO Q15M PRN; Protocol PRN Reason: per Hypoglycemia Standing Ord. Insulin Human Lispro (Insulin Lispro 100 Unit/Ml 3 Ml Vial) 0 unit SUBCUT QIDACHS [facility]; Protocol Last Admin: 04/06/22 11:04 Dose: Not Given Documented By: ELZA Non-Admin Reason: pt npo Lidocaine (Lidocaine 4 % Patch Adh..Patch) 1 patch TRANSDERMA DAILY [facility] Last Admin: 04/06/22 08:46 Dose: Not Given Documented By: ELZA Non-Sonia Reason: refused Losartan Potassium (Losartan Potassium 50 Mg Tablet) 50 mg PO BEDTIME [facility]; Protocol Last Admin: 04/06/22 08:46 Dose: 50 mg Documented By: ELZA Omeprazole (Omeprazole 40 Mg Capsule.Dr) 40 mg PO BID@0630,1630 [facility] Last Admin: 04/06/22 07:16 Dose: Not Given Documented By: ANAMIKA Non-Admin Reason: NPO Ondansetron HCl (Ondansetron Hcl 4 Mg/2 Ml Vial) 4 mg IVPUSH Q8H PRN PRN Reason: Nausea and Vomiting Oxycodone HCl (Oxycodone Hcl Immed Release 5 Mg Tablet) 5 mg PO Q6H PRN PRN Reason: Breakthrough Pain Last Admin: 04/05/22 00:41 Dose: 5 mg Documented By: MOIRA Pharmacy Consult (Consult Rx Perform Med Rec) 1 each MISCELLANE ONCE PRN PRN Reason: Consult order Pregabalin (Pregabalin 150 Mg Capsule) 300 mg PO BID [facility] Last Admin: 04/06/22 08:41 Dose: 300 mg Documented By: ELZA Sodium Chloride (0.9 % Sodium Chloride Flush 3 Ml Syringe) 3 ml IVFLUSH QSHIFT [facility] Last Admin: 04/06/22 07:25 Dose: Not Given Documented By: ELZA Non-Admin Reason: assessed Labs CBC & Chem 7: 04/06/22 06:37 04/06/22 06:37 Labs: Laboratory Results - last 24 hr 04/04/22 04/04/22 04/05/22 15:14 16:07 12:02 MCV MCH MCHC RDW Plt Count MPV Absolute Nucleated RBC Nucleated RBC % (auto) Smear Path Review SEE NOTE Anion Gap Estim Creat Clear Calc Estimated GFR POC Glucose 168 H Fasting Glucose Calcium Blood Type A Positive Antibody Screen NEGATIVE Crossmatch See Detail 04/05/22 04/05/22 04/06/22 16:28 19:47 06:37 MCV 85.7 MCH 28.2 MCHC 32.9 RDW 14.3 Plt Count 344 MPV 10.3 Absolute Nucleated RBC 0.060 H Nucleated RBC % (auto) 0.6 H Smear Path Review Anion Gap Estim Creat Clear Calc Estimated GFR POC Glucose 141 H 156 H Fasting Glucose Calcium Blood Type Antibody Screen Crossmatch 04/06/22 04/06/22 06:37 07:08 MCV MCH MCHC RDW Plt Count MPV Absolute Nucleated RBC Nucleated RBC % (auto) Smear Path Review Anion Gap 11 L Estim Creat Clear Calc 143.2 Estimated GFR > 60 POC Glucose 152 H Fasting Glucose 145 H Calcium 7.8 L Blood Type Antibody Screen Crossmatch Microbiology Microbiology Results: Microbiology 04/04/22 17:42 Urine Culture - Final Urine clean catch - Urine rocha top No growth. Assessment and Plan (1) Elevated troponin: Status: Acute Plan 57M presented with weakness found to have severe anemia, elevated troponin weakness due to severe iron defeciency anemia likely acute blood loss anemia related to previous gastric bypass (anastamosis ulcer) vs iron malabsorption and noncompliance with supplement transfused 4 units prbc, hgb improved appropriately, continue ppi, hold asa plan for egd/colonoscopy today elevated troponin, ekg changes likely strain from anemia, possible underlying cad, will need cardiac work up eventually echo with Possible distal inferoseptal hypokinesis,, cardio following urinary retention had 800cc after catheter placement, patient believes was positional, voiding trial successful 04/05 htn holding antihypertensives while ruling out active bleed chronic weakness, aphasia following with neuro DM insulin sliding scale, holding metformin dvt prophylaxis - mechanical due to bleed full code reason for continued hospitalization: plan for inpatient scope. Quality Stroke Does the patient have a stroke diagnosis?: No VTE Prior VTE?: No VTE Risk Level:: Medical - moderate - high VTE Device Contraindication: N/A - Device Ordered VTE Drug Contraindication: Treatment Not Indicated
[2022-04-06 12:01] LABS: Glucose, Whole Blood 151 mg/dL (60-115)
--- NOTE | 2022-04-06 14:05 | PC.NURSE ---
Report given to OR. Per Md H&H goal is >8. Insulin not administered d/t pt being NPO, pt stated he will not take insulin today. POC maintianed. BPs taken manually. Md informed of pt's increased BP, med was administered w/ - effect. informed of pt's repear BP. no new orders at this time. Pt was taken to the Or around 1200. safety and fall precautions in place. call [facility] within reach. pt repo'ed q2.
--- NOTE | 2022-04-06 14:14 | PC.NURSE ---
Patient transferred pre-procedure to PACU. Report given to Gina Rich RN who will restart a second IV and follow-up with the Anesthesiologist.
--- NOTE | 2022-04-06 14:38 | MHC.SHP ---
Pre-Procedural Eval Section A Date of Service: 04/06/22 The patient is an INPATIENT: Yes The History & Physical has been completed within 30 days and I have reviewed it.: Yes Section B Chief Complaint: severe anemia, ekg changes Allergies: Allergies Allergy/AdvReac Type Severity Reaction Status Date / Time No Known Allergies Allergy Verified 04/04/22 12:19 lisinopril Allergy Unknown cough Uncoded 05/16/17 00:00 protonix Allergy Unknown ringing in Uncoded 05/16/17 00:00 ear Plan Diagnosis/Plan: Unchanged I have reviewed the history and physical and performed a pertinent physical examination on my patient. No changes have occurred unless specified.
--- NOTE | 2022-04-06 14:38 | PM.OP ---
Brief Operative Note Date of Service: 04/06/22 Pre-op diagnosis: iron def anemia Post-op diagnosis: same Procedure: see op note Surgeon: Cielo Henson MD Anesthesia: MAC Was an [employer] used for this Procedure?: No Estimated blood loss (mL): 0 Condition: stable Disposition: PACU
--- NOTE | 2022-04-06 14:39 | P.OP_ITS ---
Operative Note Operative Note Date of Service: 04/06/22 Narrative: Operative Information Procedure Description: EGD, Colonoscopy Indication: iron def anemia Anesthesia: MAC FLEXIBLE TRANSORAL UPPER GASTROINTESTINAL ENDOSCOPY AND COLONOSCOPY PROCEDURE NOTE UPPER ENDOSCOPY Consent: Indications for the procedure and potential complications of bleeding, perforation, reaction to medications and missed diagnosis were discussed with the patient and informed consent was obtained. Instrument: Olympus GIF H 190 J mid size upper endoscope Monitoring: Vital signs and clinical assessment, continuous EKG monitoring, Pulse oximetry, Carbon Dioxide monitoring and blood pressure monitoring were done throughout the procedure. Procedure: The patient was placed in the left lateral decubitis position and pre-procedure medications were administered and a bite block was placed. The endoscope was inserted into the mouth and advanced under direct vision to the third part of duodenum. A careful inspection was made as the upper endoscope was withdrawn including a retroflexed examination of the proximal stomach; Findings and interventions are described below. 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 Biopsies were obtained. Grade 2 flap valve on retroflexed examination of the cardia. At anastomotic junction redness and edema noted with superficial ulceration 8-10 mm, and erosion - non bleeding, Ge grade III. jejunum: Normal, bx taken Intervention: Biopsies as noted above COLONOSCOPY Instrument: Olympus variable stiffness pediatric scope 190L Colonoscopy Monitoring: Vital signs and clinical assessment, continuous EKG monitoring, Pulse oximetry, Carbon Dioxide monitoring and blood pressure monitoring were done throughout the procedure. Colon withdrawal time was 6 minutes. Procedure: The patient was placed in the left lateral decubitis position and pre-procedure medications were administered. After a digital rectal examination of the ano-rectum, the video colonoscope was inserted into the rectum and advanced through the colon to the cecum/TI. The colonoscope was slowly withdrawn in a retrograde panoramic fashion and the colon mucosa was carefully examined including a retroflexed view of the rectum. Findings and interventions are described below. Procedure Difficulty:easy Findings: No blood in lumen or melenic stools Terminal Ileum-normal Cecum:normal Ascending Colon: scattered diverticula Transverse Colon -normal Descending Colon:normal Sigmoid Colon:moderate severe diverticulosis, Rectum: Retroflexion with moderate internal hemorrhoids, grade I Anorectum - normal Colon preparation: [place] Bowel Preparation Scale Right colon; 2 Transverse colon: 2 Left colon; borderline 1- 2 (0 = Unprepared colon segment with mucosa not seen due to solid stool that cannot be cleared. 1 = Portion of mucosa of the colon segment seen, but other areas of the colon segment not well seen due to staining, residual stool and/or opaque liquid. 2 = Minor amount of residual staining, small fragments of stool and/or opaque liquid, but mucosa of colon segment seen well. 3 = Entire mucosa of colon segment seen well with no residual staining, small fragments of stool or opaque liquid) Impression and Post Procedure Diagnosis: Endoscopy Findings: anastomotic ulcer and erosion likely 2/2 aspirin use esophagitis Colonoscopy Findings: internal hemorrhoids diverticular disease Plan: Await Pathology results Repeat Colonoscopy in 5 years due to fair prep or earlier if clinically indicated High fiber diet leaflet avoid straining at stool, epsom salts and sitz bath, anusol supps or cream commence PPI e.g omeprazole capsule 20 mg BID )open capsule and mix with apple sauce) and carafate 1 g BID Above findings were reviewed with the patient and relevant handouts were provided if indicated.
--- NOTE | 2022-04-06 15:17 | HO.ANESPROP2 ---
HPI - Anesthesia Eval Consult details Narrative: 57 M for egd and colonoscopy LIV bypass gastric 2017 GI bleed , elevated troponins , weakness , DM Anemia s/p 4 units PRBC , Hbg 8.5 , cardiology recommended Hgb 10.0 . Discussed with GI Estefania RASHID Active Problems Active Problems: All Active Problems (Updated 04/05/22 @ 18:05 by Cielo Henson MD) Iron deficiency (Acute) Lethargy (Acute) Preoperative cardiovascular examination (Acute) Elevated troponin (Acute) Abnormal EKG (Acute) Anemia (Acute) GI bleed (Acute) Acute urinary retention (Acute) Periodic limb movement disorder (Acute) Past Medical History Medical History (Updated 04/06/22 @ 15:43 by Chapo Gorman MD) ADHD Depression GERD (gastroesophageal reflux disease) Gout Hypertension Hypertriglyceridemia Periodic limb movement disorder Sleep apnea Type 2 diabetes mellitus Family History Family History (Updated 04/05/22 @ 10:28 by Chapo Gorman MD) Mother No problems noted. Family history of problems with anesthesia: No Surgical History Surgical History (Updated 04/04/22 @ 13:08 by Kalli Garcia MD) H/O gastric bypass History of Problems with Anesthesia: No Social History Social History Household Members: Spouse and Other Housing: House Do you presently have visiting nurse or other home services: No Alcohol intake: never Patient Tobacco Use Status: Never used Tobacco Substance Use Type: Marijuana service: No Current occupational status: unemployed Meds Allergies Allergy/AdvReac Type Severity Reaction Status Date / Time No Known Allergies Allergy Verified 04/04/22 12:19 lisinopril Allergy Unknown cough Uncoded 05/16/17 00:00 protonix Allergy Unknown ringing in Uncoded 05/16/17 00:00 ear Active Medications: Current Medications Acetaminophen (Acetaminophen 325 Mg Tablet) 650 mg PO Q6H PRN PRN Reason: Pain, Mild (Pain Scale 1-3) Atorvastatin Calcium (Atorvastatin Calcium 10 Mg Tablet) 10 mg PO DAILY [facility] Last Admin: 04/06/22 08:41 Dose: 10 mg Dextrose (Dextrose 50 % 25 Gm/50 Ml Syringe) 25 gm IVPUSH Q15M PRN; Protocol PRN Reason: per Hypoglycemia Standing Ord. Diphenhydramine HCl (Diphenhydramine Hcl 25 Mg Tablet) 25 mg PO BEDTIME PRN PRN Reason: Sleep Last Admin: 04/05/22 00:41 Dose: 25 mg Fluoxetine HCl (Fluoxetine Hcl 20 Mg Capsule) 40 mg PO DAILY [facility] Last Admin: 04/06/22 08:41 Dose: 40 mg Fluticasone Propionate (Fluticasone Propionate Nasal 16 Gm [place]) 2 spray NOSTRIL-B DAILY PRN PRN Reason: Allergy Symptoms Gabapentin (Gabapentin 400 Mg Capsule) 800 mg PO TID [facility] Last Admin: 04/06/22 14:31 Dose: Not Given Glucose (Glucose Gel 15 Gm Gel..Gram.) 15 gm PO Q15M PRN; Protocol PRN Reason: per Hypoglycemia Standing Ord. Insulin Human Lispro (Insulin Lispro 100 Unit/Ml 3 Ml Vial) 0 unit SUBCUT QIDACHS [facility]; Protocol Last Admin: 04/06/22 11:04 Dose: Not Given Lidocaine (Lidocaine 4 % Patch Adh..Patch) 1 patch TRANSDERMA DAILY [facility] Last Admin: 04/06/22 08:46 Dose: Not Given Losartan Potassium (Losartan Potassium 50 Mg Tablet) 50 mg PO BEDTIME [facility]; Protocol Last Admin: 04/06/22 08:46 Dose: 50 mg Omeprazole (Omeprazole 40 Mg Capsule.Dr) 40 mg PO BID@0630,1630 [facility] Last Admin: 04/06/22 07:16 Dose: Not Given Ondansetron HCl (Ondansetron Hcl 4 Mg/2 Ml Vial) 4 mg IVPUSH Q8H PRN PRN Reason: Nausea and Vomiting Oxycodone HCl (Oxycodone Hcl Immed Release 5 Mg Tablet) 5 mg PO Q6H PRN PRN Reason: Breakthrough Pain Last Admin: 04/05/22 00:41 Dose: 5 mg Pharmacy Consult (Consult Rx Perform Med Rec) 1 each MISCELLANE ONCE PRN PRN Reason: Consult order Pregabalin (Pregabalin 150 Mg Capsule) 300 mg PO BID [facility] Last Admin: 04/06/22 08:41 Dose: 300 mg Sodium Chloride (0.9 % Sodium Chloride Flush 3 Ml Syringe) 3 ml IVFLUSH QSHIFT [facility] Last Admin: 04/06/22 14:32 Dose: Not Given Home Medications Medication Instructions Recorded Confirmed Last Taken Type aspirin 81 mg tablet,delayed 1 tab PO DAILY 04/04/22 04/04/22 04/04/22 History release atorvastatin 10 mg tablet 1 tab PO DAILY 0604/04/22 04/04/22 History epinephrine 0.3 mg/0.3 mL 0.3 mg IM USEASDIRECTD PRN 04/04/22 04/04/22 Unknown History injection, auto-injector Anaphylaxis fluoxetine 40 mg capsule 1 cap PO DAILY 04/04/22 04/04/22 04/04/22 History fluticasone propionate 50 2 spray intranasal DAILY PRN 04/04/22 04/04/22 Unknown History mcg/actuation nasal Allergy Symptoms spray,suspension gabapentin 800 mg tablet 1 tab PO TID 04/04/22 04/04/22 04/04/22 History lidocaine 5 % topical patch 1 patch topical DAILY 04/04/22 04/04/22 03/30/22 History losartan 50 mg tablet 1 tab PO BEDTIME 04/04/22 04/04/22 03/31/22 History metformin 500 mg tablet 1 tab PO BIDWM 04/04/22 04/04/22 04/04/22 History oxycodone-acetaminophen 10 mg-325 1 tab PO QID 04/04/22 04/04/22 04/04/22 History mg tablet pregabalin 300 mg capsule 1 cap PO BID 04/04/22 04/04/22 04/04/22 History Exam Exam Date and Time: April 06, 2022 1517 Height,Weight and Vital Signs: Height 5 ft 9 in Weight 83.007 kg Last Vital Signs Temp 96.5 F L 04/06/22 13:44 Pulse 84 04/06/22 13:44 Resp 16 04/06/22 13:44 BP 179/99 H 04/06/22 13:44 Pulse Ox 100 04/06/22 13:44 O2 Del Method 04/06/22 13:44 Pertinent Lab Results Pertinent Lab Results: Laboratory Tests 04/04/22 04/04/22 04/04/22 14:08 15:14 15:14 WBC 8.2 RBC 1.79 L Hgb 4.5 L* Hct 14.7 L* MCV 82.1 MCH 25.1 L MCHC 30.6 L RDW 13.1 Plt Count 388 MPV 9.7 Immature Gran % (Auto) 0.7 H Neut % (Auto) 65.0 Lymph % (Auto) 22.2 [place] % (Auto) 10.1 Eos % (Auto) 1.3 Baso % (Auto) 0.7 Lymph # (Auto) 1.8 [place] # (Auto) 0.8 Eos # (Auto) 0.1 Baso # (Auto) 0.1 Abs Immat Gran (auto) 0.06 H Absolute Neuts (auto) 5.3 Absolute Nucleated RBC 0.020 H Nucleated RBC % (auto) 0.2 Smear Path Review SEE NOTE PT 13.4 H INR 1.2 H Sodium Potassium Chloride Carbon Dioxide Anion Gap BUN Creatinine Estim Creat Clear Calc Estimated GFR POC Glucose Random Glucose Fasting Glucose Calcium Magnesium Iron TIBC % Saturation Unsat Iron Binding Ferritin Total Bilirubin Direct Bilirubin AST ALT Alkaline Phosphatase Troponin I High Sens Total Protein Albumin Vitamin B12 Folate TSH Urine Color Urine Appearance Urine pH Ur Specific [place] Urine Protein Urine Glucose (UA) Urine Ketones Urine Blood Urine Nitrite Ur Leukocyte Esterase Urine RBC Urine WBC Ur Squamous Epith Cells Urine Bacteria Stool Occult Blood Urine Opiates Screen Urine Fentanyl Screen Ur Barbiturates Screen Ur Phencyclidine Scrn Ur Amphetamines Screen U Benzodiazepines Scrn Urine Cocaine Screen U Marijuana (THC) Screen Ethyl Alcohol COVID-19 ([facility]) Negative COVID-19 Clin Com See Note Blood Type Antibody Screen Crossmatch 04/04/22 04/04/22 04/04/22 15:14 15:14 15:14 WBC RBC Hgb Hct MCV MCH MCHC RDW Plt Count MPV Immature Gran % (Auto) Neut % (Auto) Lymph % (Auto) [place] % (Auto) Eos % (Auto) Baso % (Auto) Lymph # (Auto) [place] # (Auto) Eos # (Auto) Baso # (Auto) Abs Immat Gran (auto) Absolute Neuts (auto) Absolute Nucleated RBC Nucleated RBC % (auto) Smear Path Review PT INR Sodium 136 Potassium 3.5 Chloride 104 Carbon Dioxide 22 Anion Gap 14 BUN 9 Creatinine 0.74 Estim Creat Clear Calc 121.9 Estimated GFR > 60 POC Glucose Random Glucose 136 H Fasting Glucose Calcium 8.0 L Magnesium 1.7 Iron 9 L TIBC 384 % Saturation 2 L Unsat Iron Binding 375 Ferritin 5 L Total Bilirubin 0.4 Direct Bilirubin 0.2 AST 11 ALT 9 Alkaline Phosphatase 50 Troponin I High Sens 192.5 H* Total Protein 5.8 L Albumin 3.6 Vitamin B12 430 Folate 17.2 TSH Urine Color Urine Appearance Urine pH Ur Specific [place] Urine Protein Urine Glucose (UA) Urine Ketones Urine Blood Urine Nitrite Ur Leukocyte Esterase Urine RBC Urine WBC Ur Squamous Epith Cells Urine Bacteria Stool Occult Blood Urine Opiates Screen Urine Fentanyl Screen Ur Barbiturates Screen Ur Phencyclidine Scrn Ur Amphetamines Screen U Benzodiazepines Scrn Urine Cocaine Screen U Marijuana (THC) Screen Ethyl Alcohol COVID-19 ([facility]) COVID-19 Clin Com Blood Type Antibody Screen Crossmatch 04/04/22 04/04/22 04/04/22 15:14 15:14 16:07 WBC RBC Hgb Hct MCV MCH MCHC RDW Plt Count MPV Immature Gran % (Auto) Neut % (Auto) Lymph % (Auto) [place] % (Auto) Eos % (Auto) Baso % (Auto) Lymph # (Auto) [place] # (Auto) Eos # (Auto) Baso # (Auto) Abs Immat Gran (auto) Absolute Neuts (auto) Absolute Nucleated RBC Nucleated RBC % (auto) Smear Path Review PT INR Sodium Potassium Chloride Carbon Dioxide Anion Gap BUN Creatinine Estim Creat Clear Calc Estimated GFR POC Glucose Random Glucose Fasting Glucose Calcium Magnesium Iron TIBC % Saturation Unsat Iron Binding Ferritin Total Bilirubin Direct Bilirubin AST ALT Alkaline Phosphatase Troponin I High Sens Total Protein Albumin Vitamin B12 Folate TSH 0.37 Urine Color Urine Appearance Urine pH Ur Specific [place] Urine Protein Urine Glucose (UA) Urine Ketones Urine Blood Urine Nitrite Ur Leukocyte Esterase Urine RBC Urine WBC Ur Squamous Epith Cells Urine Bacteria Stool Occult Blood Urine Opiates Screen Urine Fentanyl Screen Ur Barbiturates Screen Ur Phencyclidine Scrn Ur Amphetamines Screen U Benzodiazepines Scrn Urine Cocaine Screen U Marijuana (THC) Screen Ethyl Alcohol < 10 COVID-19 ([facility]) COVID-19 Clin Com Blood Type A Positive Antibody Screen NEGATIVE Crossmatch See Detail 04/04/22 04/04/22 04/04/22 16:11 17:42 17:42 WBC RBC Hgb Hct MCV MCH MCHC RDW Plt Count MPV Immature Gran % (Auto) Neut % (Auto) Lymph % (Auto) [place] % (Auto) Eos % (Auto) Baso % (Auto) Lymph # (Auto) [place] # (Auto) Eos # (Auto) Baso # (Auto) Abs Immat Gran (auto) Absolute Neuts (auto) Absolute Nucleated RBC Nucleated RBC % (auto) Smear Path Review PT INR Sodium Potassium Chloride Carbon Dioxide Anion Gap BUN Creatinine Estim Creat Clear Calc Estimated GFR POC Glucose Random Glucose Fasting Glucose Calcium Magnesium Iron TIBC % Saturation Unsat Iron Binding Ferritin Total Bilirubin Direct Bilirubin AST ALT Alkaline Phosphatase Troponin I High Sens Total Protein Albumin Vitamin B12 Folate TSH Urine Color YELLOW Urine Appearance CLEAR Urine pH 7.5 Ur Specific [place] 1.010 Urine Protein NEG Urine Glucose (UA) 100 H Urine Ketones NEG Urine Blood TRACE Urine Nitrite NEG Ur Leukocyte Esterase NEG Urine RBC 5-9 H Urine WBC 5-9 H Ur Squamous Epith Cells TRACE Urine Bacteria NONE Stool Occult Blood POSITIVE Urine Opiates Screen POSITIVE H Urine Fentanyl Screen Not Detected Ur Barbiturates Screen Not Detected Ur Phencyclidine Scrn Not Detected Ur Amphetamines Screen Not Detected U Benzodiazepines Scrn Not Detected Urine Cocaine Screen Not Detected U Marijuana (THC) Screen POSITIVE H Ethyl Alcohol COVID-19 ([facility]) COVID-19 Clin Com Blood Type Antibody Screen Crossmatch 04/04/22 04/04/22 04/04/22 17:52 21:19 22:46 WBC 10.4 RBC 2.20 L D Hgb 6.0 L* D Hct 18.7 L* D MCV 85.0 MCH 27.3 MCHC 32.1 RDW 14.4 Plt Count 351 MPV 9.9 Immature Gran % (Auto) Neut % (Auto) Lymph % (Auto) [place] % (Auto) Eos % (Auto) Baso % (Auto) Lymph # (Auto) [place] # (Auto) Eos # (Auto) Baso # (Auto) Abs Immat Gran (auto) Absolute Neuts (auto) Absolute Nucleated RBC 0.040 H Nucleated RBC % (auto) 0.4 H Smear Path Review PT INR Sodium Potassium Chloride Carbon Dioxide Anion Gap BUN Creatinine Estim Creat Clear Calc Estimated GFR POC Glucose 163 H Random Glucose Fasting Glucose Calcium Magnesium Iron TIBC % Saturation Unsat Iron Binding Ferritin Total Bilirubin Direct Bilirubin AST ALT Alkaline Phosphatase Troponin I High Sens 164.6 H* Total Protein Albumin Vitamin B12 Folate TSH Urine Color Urine Appearance Urine pH Ur Specific [place] Urine Protein Urine Glucose (UA) Urine Ketones Urine Blood Urine Nitrite Ur Leukocyte Esterase Urine RBC Urine WBC Ur Squamous Epith Cells Urine Bacteria Stool Occult Blood Urine Opiates Screen Urine Fentanyl Screen Ur Barbiturates Screen Ur Phencyclidine Scrn Ur Amphetamines Screen U Benzodiazepines Scrn Urine Cocaine Screen U Marijuana (THC) Screen Ethyl Alcohol COVID-19 ([facility]) COVID-19 Clin Com Blood Type Antibody Screen Crossmatch 04/05/22 04/05/22 04/05/22 06:00 06:00 07:30 WBC 8.9 RBC 2.65 L D Hgb 7.3 L D Hct 22.4 L MCV 84.5 MCH 27.5 MCHC 32.6 RDW 13.8 Plt Count 338 MPV 10.5 Immature Gran % (Auto) 1.0 H Neut % (Auto) 67.1 Lymph % (Auto) 17.7 L [place] % (Auto) 11.7 H Eos % (Auto) 1.6 Baso % (Auto) 0.9 Lymph # (Auto) 1.6 [place] # (Auto) 1.0 Eos # (Auto) 0.1 Baso # (Auto) 0.1 Abs Immat Gran (auto) 0.09 H Absolute Neuts (auto) 6.0 Absolute Nucleated RBC 0.060 H Nucleated RBC % (auto) 0.7 H Smear Path Review PT INR Sodium 135 Potassium 3.9 Chloride 105 Carbon Dioxide 21 L Anion Gap 13 BUN 11 Creatinine 0.68 Estim Creat Clear Calc 132.7 Estimated GFR > 60 POC Glucose 157 H Random Glucose 161 H Fasting Glucose Calcium 7.6 L Magnesium Iron TIBC % Saturation Unsat Iron Binding Ferritin Total Bilirubin Direct Bilirubin AST ALT Alkaline Phosphatase Troponin I High Sens Total Protein Albumin Vitamin B12 Folate TSH Urine Color Urine Appearance Urine pH Ur Specific [place] Urine Protein Urine Glucose (UA) Urine Ketones Urine Blood Urine Nitrite Ur Leukocyte Esterase Urine RBC Urine WBC Ur Squamous Epith Cells Urine Bacteria Stool Occult Blood Urine Opiates Screen Urine Fentanyl Screen Ur Barbiturates Screen Ur Phencyclidine Scrn Ur Amphetamines Screen U Benzodiazepines Scrn Urine Cocaine Screen U Marijuana (THC) Screen Ethyl Alcohol COVID-19 ([facility]) COVID-19 Clin Com Blood Type Antibody Screen Crossmatch 04/05/22 04/05/22 04/05/22 12:02 16:28 19:47 WBC RBC Hgb Hct MCV MCH MCHC RDW Plt Count MPV Immature Gran % (Auto) Neut % (Auto) Lymph % (Auto) [place] % (Auto) Eos % (Auto) Baso % (Auto) Lymph # (Auto) [place] # (Auto) Eos # (Auto) Baso # (Auto) Abs Immat Gran (auto) Absolute Neuts (auto) Absolute Nucleated RBC Nucleated RBC % (auto) Smear Path Review PT INR Sodium Potassium Chloride Carbon Dioxide Anion Gap BUN Creatinine Estim Creat Clear Calc Estimated GFR POC Glucose 168 H 141 H 156 H Random Glucose Fasting Glucose Calcium Magnesium Iron TIBC % Saturation Unsat Iron Binding Ferritin Total Bilirubin Direct Bilirubin AST ALT Alkaline Phosphatase Troponin I High Sens Total Protein Albumin Vitamin B12 Folate TSH Urine Color Urine Appearance Urine pH Ur Specific [place] Urine Protein Urine Glucose (UA) Urine Ketones Urine Blood Urine Nitrite Ur Leukocyte Esterase Urine RBC Urine WBC Ur Squamous Epith Cells Urine Bacteria Stool Occult Blood Urine Opiates Screen Urine Fentanyl Screen Ur Barbiturates Screen Ur Phencyclidine Scrn Ur Amphetamines Screen U Benzodiazepines Scrn Urine Cocaine Screen U Marijuana (THC) Screen Ethyl Alcohol COVID-19 ([facility]) COVID-19 Clin Com Blood Type Antibody Screen Crossmatch 04/06/22 04/06/22 04/06/22 06:37 06:37 07:08 WBC 10.5 RBC 3.01 L Hgb 8.5 L Hct 25.8 L MCV 85.7 MCH 28.2 MCHC 32.9 RDW 14.3 Plt Count 344 MPV 10.3 Immature Gran % (Auto) Neut % (Auto) Lymph % (Auto) [place] % (Auto) Eos % (Auto) Baso % (Auto) Lymph # (Auto) [place] # (Auto) Eos # (Auto) Baso # (Auto) Abs Immat Gran (auto) Absolute Neuts (auto) Absolute Nucleated RBC 0.060 H Nucleated RBC % (auto) 0.6 H Smear Path Review PT INR Sodium 137 Potassium 3.8 Chloride 107 Carbon Dioxide 23 Anion Gap 11 L BUN 5 L D Creatinine 0.63 Estim Creat Clear Calc 143.2 Estimated GFR > 60 POC Glucose 152 H Random Glucose Fasting Glucose 145 H Calcium 7.8 L Magnesium Iron TIBC % Saturation Unsat Iron Binding Ferritin Total Bilirubin Direct Bilirubin AST ALT Alkaline Phosphatase Troponin I High Sens Total Protein Albumin Vitamin B12 Folate TSH Urine Color Urine Appearance Urine pH Ur Specific [place] Urine Protein Urine Glucose (UA) Urine Ketones Urine Blood Urine Nitrite Ur Leukocyte Esterase Urine RBC Urine WBC Ur Squamous Epith Cells Urine Bacteria Stool Occult Blood Urine Opiates Screen Urine Fentanyl Screen Ur Barbiturates Screen Ur Phencyclidine Scrn Ur Amphetamines Screen U Benzodiazepines Scrn Urine Cocaine Screen U Marijuana (THC) Screen Ethyl Alcohol COVID-19 ([facility]) COVID-19 Clin Com Blood Type Antibody Screen Crossmatch 04/06/22 11:57 WBC RBC Hgb Hct MCV MCH MCHC RDW Plt Count MPV Immature Gran % (Auto) Neut % (Auto) Lymph % (Auto) [place] % (Auto) Eos % (Auto) Baso % (Auto) Lymph # (Auto) [place] # (Auto) Eos # (Auto) Baso # (Auto) Abs Immat Gran (auto) Absolute Neuts (auto) Absolute Nucleated RBC Nucleated RBC % (auto) Smear Path Review PT INR Sodium Potassium Chloride Carbon Dioxide Anion Gap BUN Creatinine Estim Creat Clear Calc Estimated GFR POC Glucose 151 H Random Glucose Fasting Glucose Calcium Magnesium Iron TIBC % Saturation Unsat Iron Binding Ferritin Total Bilirubin Direct Bilirubin AST ALT Alkaline Phosphatase Troponin I High Sens Total Protein Albumin Vitamin B12 Folate TSH Urine Color Urine Appearance Urine pH Ur Specific [place] Urine Protein Urine Glucose (UA) Urine Ketones Urine Blood Urine Nitrite Ur Leukocyte Esterase Urine RBC Urine WBC Ur Squamous Epith Cells Urine Bacteria Stool Occult Blood Urine Opiates Screen Urine Fentanyl Screen Ur Barbiturates Screen Ur Phencyclidine Scrn Ur Amphetamines Screen U Benzodiazepines Scrn Urine Cocaine Screen U Marijuana (THC) Screen Ethyl Alcohol COVID-19 ([facility]) COVID-19 Clin Com Blood Type Antibody Screen Crossmatch Airway Mallampati Class: III TM Dist: >3cm Neck ROM: Full Loose/Missing/Broken Teeth: Yes (chipped teeth , poor dentition ) Heart: S1,S2 Lungs: b/l breath sounds Assessment and Plan Assessment Anesthesia Assessment: Anesthesia Plan Discussed and Chart Reviewed Final Anesthetic Review Family History of Problems with Anesthesia: No History of Problems with Anesthesia: No NPO: Yes ASA Class: III and Emergency Final Preanesthetic Review: Meds/Allgs Chart Reviewed, Consent Obtained/Reviewed and Anes Risks/Benef Reviewed Patient Risk: High Procedure Risk: Intermediate Anesthetic Plan Anesthetic Plan: MAC: Disposition: Inp. Admit - Standard Bed
--- NOTE | 2022-04-06 15:39 | P.PNCA_ITS ---
Subjective Subjective Date of Service: 04/06/22 Interval history: He states that he is doing well. Not having any chest pain or any other cardiac complaints. In fact he states he is walking comfortably without issues. Review of Systems Review of Systems Yes all other systems are reviewed and are negative Constitutional: Reports as per HPI Eyes: Reports as per HPI Reports as per HPI Cardiovascular: Reports as per HPI, Denies acrocyanosis, Denies cool extremities, Denies chest pain, Denies leg edema, Denies lightheadedness, Denies palpitations and Denies dyspnea Respiratory: Reports as per HPI, Reports no additional respiratory complaints and Denies dyspnea Gastrointestinal: Reports as per HPI and Reports no additional gastrointestinal complaints Genitourinary: Reports no additional male genitourinary complaints and Reports as per HPI Musculoskeletal: Reports no additional musculoskeletal complaints and Reports as per HPI Skin/Breast: Reports system reviewed and no additional complaints, except as docu Reports system reviewed and no additional complaints, except as documented and Reports as per HPI Psychiatric: Reports no additional psychiatric complaints and Reports as per HPI Endocrine: Reports no additional endocrine complaints, Reports as per HPI and Denies palpitations Hematologic/Lymphatic: Reports no additional hematologic/lymphatic complaints and Reports as per HPI Allergic/Immunologic: Reports no additional allergic/immunologic complaints and Reports as per HPI Physical Exam Vital Signs: Last Vital Signs Temp 96.5 F L 04/06/22 13:44 Pulse 84 04/06/22 13:44 Resp 16 04/06/22 13:44 BP 179/99 H 04/06/22 13:44 Pulse Ox 100 04/06/22 13:44 O2 Del Method 04/06/22 13:44 BMI result Body Mass Index 27.0 Const General: comfortable and no acute distress Orientation/consciousness: patient oriented x3 HEENT Other: Unremarkable Head: Yes normal to inspection Neck Neck: Yes normal visual inspection Chest Chest palpation & inspection: normal inspection of the chest Resp Auscultation: clear to auscultation bilaterally Cardio Palpation: normal PMI Heart sounds: S1 normal heart sound present, S2 normal heart sound present, no gallops, no murmurs and no rubs GI Palpation (GI): Soft to palpation Back/Spine/Pelvis Other: unremarkable Skin General skin exam: no rashes or lesions noted Neuro General: patient oriented x3 Extrem General: Yes normal to inspection Psych Mental Status: mental status grossly normal Objective Labs and Meds Result diagrams: 04/06/22 06:37 04/06/22 06:37 Lab results: Laboratory Results - last 24 hr 04/04/22 04/05/22 04/05/22 16:07 16:28 19:47 WBC RBC Hgb Hct MCV MCH MCHC RDW Plt Count MPV Absolute Nucleated RBC Nucleated RBC % (auto) Sodium Potassium Chloride Carbon Dioxide Anion Gap BUN Creatinine Estim Creat Clear Calc Estimated GFR POC Glucose 141 H 156 H Fasting Glucose Calcium Crossmatch See Detail 04/06/22 04/06/22 04/06/22 06:37 06:37 07:08 WBC 10.5 RBC 3.01 L Hgb 8.5 L Hct 25.8 L MCV 85.7 MCH 28.2 MCHC 32.9 RDW 14.3 Plt Count 344 MPV 10.3 Absolute Nucleated RBC 0.060 H Nucleated RBC % (auto) 0.6 H Sodium 137 Potassium 3.8 Chloride 107 Carbon Dioxide 23 Anion Gap 11 L BUN 5 L D Creatinine 0.63 Estim Creat Clear Calc 143.2 Estimated GFR > 60 POC Glucose 152 H Fasting Glucose 145 H Calcium 7.8 L Crossmatch 04/06/22 11:57 WBC RBC Hgb Hct MCV MCH MCHC RDW Plt Count MPV Absolute Nucleated RBC Nucleated RBC % (auto) Sodium Potassium Chloride Carbon Dioxide Anion Gap BUN Creatinine Estim Creat Clear Calc Estimated GFR POC Glucose 151 H Fasting Glucose Calcium Crossmatch Progress Note: A&P Assessment and plan (1) Anemia: Status: Acute (2) Abnormal EKG: Status: Acute (3) Elevated troponin: Status: Acute (4) Preoperative cardiovascular examination: Status: Acute (5) Essential hypertension: Status: Acute Plan Echocardiogram with LVEF 56%. In the distal septum, there was a question of hypokinesis but that could also be related to hypertrophy in the more proximal part of septum giving a visual illusion of hypokinesis distally. His blood pressure is quite high and that clearly corresponds to left vent ricular hypertrophy on the echocardiogram. Overall, symptoms most likely from anemia as discussed yesterday. He is already better from blood transfusions and and states he has had no chest pain today while walking that he initially had prior to presentation. May proceed with endoscopy evaluation. Likely low and at most intermediate cardiac risk in spite of elevated troponins. Otherwise, blood pressure medications will need to be optimized. We can go up on the Losartan doses and possibly add Amlodipine vs beta-blockers for blood pressure management. Outpatient ischemia workup. Time Spent With Patient Time: Total time spent is greater than 50% in coordination of care (as documented) at patient's floor/unit and/or counseling patient: Progress Note: Quality Stroke Does the patient have a stroke diagnosis?: No Procedures Date of Service Date of Service: 04/06/22
[2022-04-06 18:46] LABS: Glucose, Whole Blood 110 mg/dL (60-115)
[2022-04-06 19:59] LABS: Glucose, Whole Blood 222 mg/dL (60-115)
[2022-04-06] MEDS: Insulin Lispro 100 UNIT/ML 3 ML VIAL SUBCUT (21:39)
[2022-04-06] MEDS: 0.9 % Sodium Chloride Flush 3 ML SYRINGE IVFLUSH (21:39)
[2022-04-06] MEDS: Sucralfate Oral Suspension 1 GM/10 ML ORAL.SUSP PO (21:39)
[2022-04-07 03:43] VITALS: BP 156/83; PULSE 90; RESP 15; TEMP 36.8; O2SAT 100
[2022-04-07] MEDS: Omeprazole 20 MG CAPSULE.DR PO (05:44)
[2022-04-07 06:36] LABS: Hematocrit 24.8 % (42.0-52.0); Hemoglobin 7.9 g/dl (14.0-18.0); Mean Corpuscular HGB Conc 31.9 g/dl (31.0-36.0); Mean Corpuscular Hemoglobin 27.6 pg (27.0-33.0); Mean Corpuscular Volume 86.7 fL (80.0-98.0); Mean Platelet Volume 10.3 fL (9.4-12.4); NRBC Pct Auto 0.3 /100WBC (0.0-0.2); Platelet Count 329 X10*3/uL (160-400); Red Blood Count 2.86 X10*6/uL (4.60-5.80); Red Cell Distribution Width 14.6 % (11.0-16.0); White Blood Count 9.4 X10*3/uL (4.8-10.8)
[2022-04-07 07:06] LABS: Anion Gap 10 (12-20); Blood Urea Nitrogen 6 mg/dL (9-16); Calcium 8.1 mg/dL (8.4-10.2); Carbon Dioxide 25 mmol/L (22-29); Chloride 108 mmol/L (96-108); Creatinine Clr Calc Pharmacy 123.8; Estimated Glomerular Filt Rate > 60; Glucose Fasting 115 mg/dL (60-99); Potassium 4.5 mmol/L (3.3-5.1); Sodium 138 mmol/L (135-145)
[2022-04-07 07:11] LABS: Glucose, Whole Blood 108 mg/dL (60-115)
[2022-04-07 07:39] VITALS: BP 166/90; PULSE 92; RESP 20; TEMP 37; O2SAT 100
[2022-04-07 08:00] VITALS: RESP 20
[2022-04-07] MEDS: Gabapentin 400 MG CAPSULE 800 MG PO (08:59)
[2022-04-07] MEDS: Sucralfate Oral Suspension 1 GM/10 ML ORAL.SUSP PO (08:59)
[2022-04-07] MEDS: Atorvastatin Calcium 10 MG TABLET PO (09:00)
[2022-04-07] MEDS: Pregabalin 150 MG CAPSULE 300 MG PO (09:00)
[2022-04-07] MEDS: Losartan Potassium 50 MG TABLET 100 MG PO (09:00)
[2022-04-07] MEDS: amLODIPine Besylate 5 MG TABLET PO (09:00)
[2022-04-07] MEDS: FLUoxetine HCl 20 MG CAPSULE 40 MG PO (09:00)
[2022-04-07] MEDS: 0.9 % Sodium Chloride Flush 3 ML SYRINGE IVFLUSH (09:01)
[2022-04-07] MEDS: Lidocaine 4 % Patch ADH..PATCH 1 PATCH TRANSDERMA (09:01)
--- NOTE | 2022-04-07 10:23 | PM.DS ---
DS: Providers Provider Date of Service: 04/07/22 Date of admission: 04/04/22 16:53 Primary care physician: Burak Orr III, MD Consults: 04/04/22 16:53 Consult to Cardiology Routine Consulting Provider: Chapo Gorman Reason for consultation: abnormal EKG Has provider been notified: No 04/04/22 17:11 Consult to Gastroenterology Routine Consulting Provider: Cielo Henson Reason for consultation: severe anemia Has provider been notified: No 04/04/22 18:00 Consult to Neurology Routine Consulting Provider: [facility] Reason for consultation: pt known to group, aphagia, falls, worsening Has provider been notified: No DS: Diagnosis Discharge Diagnosis (1) Anemia: Status: Acute (2) Abnormal EKG: Status: Acute (3) Elevated troponin: Status: Acute (4) Preoperative cardiovascular examination: Status: Acute (5) Essential hypertension: Status: Acute DS: Summary Hospital Course Hospital Course: from initial hpi: Chief Complaint:? weakness 57 year old man presenting with episodes of dizziness and falls worse over the last 2 weeks.? he reports that getting up to the bathroom he just falls down on his knees, he denies any loss of consciousness we does report some dizziness.? He has been worked up for an unknown neurological illness.? This has been ongoing over the last several years. ? He has been using a walker intermittently at home when he has trouble getting around. In 2019 he had an MRI for presumed stroke which was negative.? In November of this year he had an EEG which was nondiagnostic.? He reports that the follow-up for this has subsided some.? He reported that he does have history of constipation and had occasionally noted some dark stools and he takes aspirin and very occasional ibuprofen but not on a regular basis.? He reported that he does get some chest pain on and off substernal without any radiation or other associated symptoms usually happening when he falls.? This has been ongoing for several months now as well.? He also has some aphasia.? CT was negative for any acute abnormality today.? He was noted to have some urinary retention therefore a Murphy catheter was placed.? In the ER,His HH was noted to be 4.5/14.7, stool occult positive.? He had some mild chest pain and troponin came back positive at 192.[address] wave abnormalities to V4,5,6. Head CT neg. Stable blood pressure. 3 units of PRBC ordered. He will be admitted for further management and treatment of symptomatic acute blood loss anemia. hospital course: Patient was admitted for weakness due to severe iron deficiency anemia from acute blood loss related to anastomosis site ulcer status post gastric bypass with possible element of iron malabsorption due to noncompliance with supplement. Patient was transfused total of 4 units PRBC hemoglobin improved from 4.5-7.9 at time of discharge. It has remained stable and patient has no obvious active bleed. His energy level has significantly improved. He underwent EGD which revealed the anastomosis site ulcer which was nonbleeding and hemorrhoids. Recommendations were to discontinue aspirin and start on omeprazole 20 mg b.i.d. and Carafate. Course was also complicated by elevated troponin, he was seen by Cardiology felt that this was likely strain due to anemia. Echo showed possible distal inferoseptal hypokinesis. Recommendations were for outpatient follow-up for possible stress test. For patient's hypertension, blood pressure was uncontrolled, his losartan was increased to 100 mg and he will be starting on amlodipine 5 mg daily. For his weakness he was seen by Neurology who felt this was likely due to anemia and not primarily neurological condition. For his diabetes he was given insulin, he Will restart metformin on discharge. Time Spent with Patient Time attestation: Total time spent providing and/or coordinating discharge services: Discharge coordination time: Greater than 30 minutes Quality: Safe Use of Opioids Does Pt have an Active Cancer Diagnosis on the Problem List?: No Quality: Stroke Does the patient have a stroke diagnosis?: No Physical Exam Vital Signs: Vital Signs: Last Vital Signs Temp 98.6 F 04/07/22 07:39 Pulse 92 04/07/22 07:39 Resp 20 04/07/22 08:00 BP 166/90 H 04/07/22 07:39 Pulse Ox 100 04/07/22 07:39 O2 Del Method 04/07/22 07:39 BMI result Body Mass Index 27.0 General: AO X 3, no acute distress Resp: CTA bilateral, no accessory muscles used CVS: S1,S2,RRR GI: soft, non tender, non distended Neuro: motor grossly intact, alert Psych: appropriate affect, appropriate insight DS: Data Data Completed and Pending Pending studies at discharge: Pending at discharge 04/06/22 15:35 Surgical [PTH] Routine Labs on day of discharge: Laboratory Results - last 24 hr 04/06/22 04/06/22 04/06/22 11:57 16:53 19:53 WBC RBC Hgb Hct MCV MCH MCHC RDW Plt Count MPV Absolute Nucleated RBC Nucleated RBC % (auto) Sodium Potassium Chloride Carbon Dioxide Anion Gap BUN Creatinine Estim Creat Clear Calc Estimated GFR POC Glucose 151 H 110 222 H Fasting Glucose Calcium 04/07/22 04/07/22 04/07/22 06:10 06:10 07:06 WBC 9.4 RBC 2.86 L Hgb 7.9 L Hct 24.8 L MCV 86.7 MCH 27.6 MCHC 31.9 RDW 14.6 Plt Count 329 MPV 10.3 Absolute Nucleated RBC 0.030 H Nucleated RBC % (auto) 0.3 H Sodium 138 Potassium 4.5 Chloride 108 Carbon Dioxide 25 Anion Gap 10 L BUN 6 L Creatinine 0.65 Estim Creat Clear Calc 123.8 Estimated GFR > 60 POC Glucose 108 Fasting Glucose 115 H Calcium 8.1 L Discharge Plan Discharge Patient Disposition: Home, Self-Care Discharge Diagnosis: gi bleed Referrals: Burak Orr III, MD [Primary Care Provider] - 1 Week Discharge Medications: New losartan 50 mg Tablet 100 mg PO DAILY Qty: 60 0RF Protocol: Hold for SBP< HOLD for SBP < : 90 sucralfate 100 mg/mL Suspension 1 g PO BID 30 Days Qty: 600 0RF amlodipine 5 mg Tablet 5 mg PO DAILY Qty: 30 0RF Protocol: Hold for SBP< HOLD for SBP < : 90 omeprazole 20 mg Capsule,Delayed Release(Dr/Ec) 20 mg PO BID@0630,1630 Qty: 60 0RF Continued fluoxetine 40 mg capsule 1 cap PO DAILY metformin 500 mg tablet 1 tab PO BIDWM atorvastatin 10 mg tablet 1 tab PO DAILY oxycodone-acetaminophen 10-325 mg tablet 1 tab PO QID gabapentin 800 mg tablet 1 tab PO TID lidocaine 5 % adhesive patch,medicated 1 patch topical DAILY epinephrine 0.3 mg/0.3 mL auto-injector 0.3 mg IM USEASDIRECTD PRN (Reason: Anaphylaxis) fluticasone propionate 50 mcg/actuation spray,suspension 2 spray intranasal DAILY PRN (Reason: Allergy Symptoms) pregabalin 300 mg capsule 1 cap PO BID Discontinued losartan 50 mg tablet 1 tab PO BEDTIME aspirin 81 mg tablet,delayed release (DR/EC) 1 tab PO DAILY Discharge Orders: Discharge Order (Routine); Ordered 04/07/22 Ordered By: Ghassan Kinney Diet: advance to usual diet Activity on Discharge: As tolerated Stand Alone Forms: Patient Portal Discharge page Care Plan Goals: recovery Health Concerns: ulcer, anemia, troponin elevation Plan of Treatment: stop aspirin, start omperzaole and carafate, increase losartan, start amlodipine, follow up with gi and cardiology Assessment: see above
--- NOTE | 2022-04-07 11:10 | MHC.CM.PN ---
Patient has been medically cleared for dc to home today, self care.
[2022-04-07 11:22] VITALS: BP 166/80; PULSE 95; RESP 18; TEMP 36.7; O2SAT 96
[2022-04-07 11:28] LABS: Glucose, Whole Blood 127 mg/dL (60-115)
--- NOTE | 2022-04-07 13:40 | HO.POSTANES ---
Post Anesthesia Evaluation Post Anesthesia Evaluation Vital Signs: Vital Signs Temp Pulse Resp BP Pulse Ox O2 Del Method 04/07/22 11:22 98.1 F 95 18 166/80 H 96 Room Air 04/07/22 08:00 20 04/07/22 07:39 98.6 F 92 20 166/90 H 100 Room Air 04/07/22 03:43 98.3 F 90 15 156/83 H 100 Room Air Anesthesia: Monitored Mental Status: Awake Pain Control: Satisfactory Nausea/Vomiting: None Hydration: Adequate Anesthesia-Related Issues: No Anes. Related Issues
== END 2022-04-07 14:10 | disposition home or self-care (01) | DRG 244 ==
LOC: HO.ED 17:01 → HO.EDOVER 17:15 → HO.IMC 20:03
PROVIDERS: Internal Medicine Gastroenterology; Admitting Provider Nurse Practitioner Acute Care; Emergency Provider Emergency Medicine; PCP Internal Medicine; Visit Provider Internal Medicine
PROC: 0DB58ZX Excision of Esophagus, Via Natural or Artificial Opening Endoscopic, Diagnostic (ICD-10-PCS; principal; 2022-04-06 15:20)
DX: K57.31 Diverticulosis of large intestine without perforation or abscess with bleeding (principal); K20.91 Esophagitis, unspecified with bleeding; K28.4 Chronic or unspecified gastrojejunal ulcer with hemorrhage; D62 Acute posthemorrhagic anemia; R47.01 Aphasia; F90.9 Attention-deficit hyperactivity disorder, unspecified type; G40.909 Epilepsy, unspecified, not intractable, without status epilepticus; E78.1 Pure hyperglyceridemia; K21.9 Gastro-esophageal reflux disease without esophagitis; M10.9 Gout, unspecified; E11.9 Type 2 diabetes mellitus without complications; G47.33 Obstructive sleep apnea (adult) (pediatric); F43.10 Post-traumatic stress disorder, unspecified; K22.70 Barrett's esophagus without dysplasia; K64.8 Other hemorrhoids; R33.9 Retention of urine, unspecified; R29.6 Repeated falls; D50.9 Iron deficiency anemia, unspecified; Z20.822 Contact with and (suspected) exposure to COVID-19; T39.015A Adverse effect of aspirin, initial encounter; Z91.81 History of falling; Z98.84 Bariatric surgery status; Z88.8 Allergy status to other drugs, medicaments and biological substances; Z79.84 Long term (current) use of oral hypoglycemic drugs; Z79.899 Other long term (current) drug therapy
CPT/HCPCS: 36415; 36430; 70450; 80048; 80076; 80307; 81001; 82077; 82272; 82607; 82728; 82746; 82947; 83540; 83735; 84443; 84484; 85025; 85027; 85610; 86850; 86900; 86901; 86923; 87086; 87635; 88305; 88342; 93005; 93306; 96374; 96375; 99285; C1758; J2270; J3010; P9016; Q0163

== ENCOUNTER 2022-08-02 22:09 | Emergency (ER) | payer OTHER, SELFPAY ==
--- NOTE | ~2022-08-02 | XR_ITS ---
EXAMINATION: XR CHEST CLINICAL INFORMATION: Chest pain, SOB COMPARISON: None TECHNIQUE: Frontal view of the chest was obtained. FINDINGS: No significant abnormality is noted involving the heart, lungs, mediastinum, bony thorax or soft tissues. XR/XR chest 1V IMPRESSION: Unremarkable chest examination.
--- NOTE | ~2022-08-02 | CT_ITS ---
EXAMINATION: CT head/brain wo IV con CLINICAL INFORMATION: Reason for Exam near syncope COMPARISON: CT head without contrast 04/04/2022 TECHNIQUE: Contiguous axial imaging was performed from the skull base to vertex without intravenous contrast. Sagittal and coronal reformatted images were obtained. This CT examination was performed using dose optimization techniques as appropriate, variously including the following: * Automated exposure control * Adjustment of mA and/or kV according to patient size (this includes techniques or standardized protocols for targeted exams where dose is matched to indication/reason for exam; i.e. extremities or head) Use of iterative reconstruction technique DLP: 700 mGy-cm FINDINGS: No acute osseous or soft tissue abnormality. The mastoid air cells and visualized portions of the paranasal sinuses are well aerated. There is no evidence of acute intracranial hemorrhage or territorial infarction. No abnormal mass effect or midline shift is seen. Lou to white matter differentiation is well preserved. No extra-axial fluid collections are identified. No hydrocephalus. No significant volume loss. There is no abnormal attenuation within the brain parenchyma. CT/CT head/brain wo IV con IMPRESSION: No acute intracranial abnormality including hemorrhage, mass effect, hydrocephalus, or acute territorial edematous infarction.
--- NOTE | ~2022-08-02 | CT_ITS ---
EXAMINATION: CT CHEST WITHOUT CONTRAST CLINICAL INFORMATION: Elevated white blood cell count, chest pain, shortness of breath COMPARISON: Chest x-ray 08/02/2022 TECHNIQUE: Multidetector volumetric CT imaging of the chest was done. Axial MIP volume rendering provided. Sagittal and coronal reformatted images were obtained. This CT examination was performed using dose optimization techniques as appropriate, variously including the following: *Automated exposure control *Adjustment of mA and/or kV according to patient size (this includes techniques or standardized protocols for targeted exams where dose is matched to indication/reason for exam; i.e. extremities or head) *Use of iterative reconstruction technique DLP: 291 mGy-cm FINDINGS: LUNGS: No regions of consolidation bilaterally. There is a 3 mm left lower lobe nodule on image 266/567 laterally. There is a 3 mm endobronchial nodule in the left upper lobe on image 174/567. MEDIASTINUM: Visualized thyroid gland is unremarkable. There are subcentimeter mediastinal lymph nodes within the range of normal variation. Cardiac size is within normal limits; no pericardial effusion. Coronary artery calcifications are present. Scattered calcification along the aorta. PLEURA: There is no pleural effusion. No pleural mass or thickening. AXILLA: No lymphadenopathy. UPPER ABDOMEN: Cholelithiasis is suspected. Patient appears to status post gastric bypass surgery. Partially visualized left renal pelvic dilation versus renal sinus cyst. OSSEOUS STRUCTURES: Unremarkable. CT/CT chest wo IV con IMPRESSION: 1. No regions of consolidation. 2. Coronary artery calcifications. Correlation with cardiac risk factors is recommended. 3. Possible left renal pelvic dilation versus a renal sinus cyst, not fully included in the [id number]. This may be further assessed with renal ultrasound. 4. Left lower lobe 3 mm lung nodule. According to the UPDATED 2017 Fleischner Society recommendations, the advised follow-up imaging for solid nodules < 6 mm is: LOW RISK PATIENT: No routine follow-up. HIGH RISK PATIENT: Optional CT at 12 months.
[2022-08-02 22:24] VITALS: BP 137/97; BP 165/89; PULSE 80; PULSE 90; RESP 16; O2SAT 100; BMI 25.2
--- NOTE | 2022-08-02 22:28 | ECG_ITS ---
Test Reason : sob Blood Pressure : / mmHG Vent. Rate : 083 BPM Atrial Rate : 083 BPM P-R Int : 170 ms QRS Dur : 088 ms QT Int : 414 ms P-R-T Axes : 010 -10 040 degrees QTc Int : 486 ms Normal sinus rhythm Minimal voltage criteria for LVH, may be normal variant ( R in aVL ) Prolonged QT Abnormal ECG When compared with ECG of 04-APR-2022 15:44, Non-specific change in ST segment in Lateral leads Nonspecific T wave abnormality no longer evident in Lateral leads Referred By: Generic ED Physician Electronically Signed By:GISELLE ESPINOZA
[2022-08-02 22:48] VITALS: BP 149/99; PULSE 83; RESP 16; TEMP 36.8; O2SAT 99
[2022-08-02 22:49] VITALS: PULSE 88
[2022-08-02 22:53] VITALS: BP 149/99; PULSE 87; RESP 20; O2SAT 100
--- NOTE | 2022-08-02 23:11 | ED.CHESTPAIN ---
HPI - Chest Pain General Chief Complaint: Chest Pain Stated Complaint: SOB/CP now resolved Time Seen by Provider: 08/02/22 22:37 Source: patient and EMS Mode of arrival: EMS Limitations: no limitations History of Present Illness HPI narrative: This is a 57-year-old male past medical history significant for neuropathy, hypertension, iron deficiency anemia presenting to the emergency department after an episode of chest pain, shortness of breath, facial flushing and feeling like he was going to pass out. Patient tells me he was eating a baked potato with butter and suddenly he became flushed and an episode of chest pain, shortness of breath, he tells me he felt like he was going to pass out and he woke his up. He tells me his give him 50 mg of Benadryl he tells me after that he felt much better, he tells me his only complaint after taking Benadryl was that he was having slight chest discomfort substernal, nonradiating, he tells me he feels like this could have also been anxiety. He tells me he is allergic to on cookie nuts in sometimes he reacts poorly to potatoes when they are raw however he tells me the potato he was eating was cut. Patient has an EpiPen at home however did not need to use it. No significant cardiac history. At this time he tells me all his symptoms have resolved and he is feeling better. Not on blood thinners. No history of PE or DVT. Related Data Home Medications Medication Instructions Recorded Confirmed atorvastatin 10 mg tablet 1 tab PO DAILY 04/04/22 04/04/22 epinephrine 0.3 mg/0.3 mL 0.3 mg IM USEASDIRECTD PRN 04/04/22 04/04/22 injection, auto-injector Anaphylaxis fluoxetine 40 mg capsule 1 cap PO DAILY 04/04/22 04/04/22 fluticasone propionate 50 2 spray intranasal DAILY PRN 04/04/22 04/04/22 mcg/actuation nasal Allergy Symptoms spray,suspension gabapentin 800 mg tablet 1 tab PO TID 04/04/22 04/04/22 lidocaine 5 % topical patch 1 patch topical DAILY 04/04/22 04/04/22 metformin 500 mg tablet 1 tab PO BIDWM 04/04/22 04/04/22 oxycodone-acetaminophen 10 mg-325 1 tab PO QID 04/04/22 04/04/22 mg tablet pregabalin 300 mg capsule 1 cap PO BID 04/04/22 04/04/22 Previous Rx's Medication Instructions Recorded amlodipine 5 mg tablet 5 mg PO DAILY #30 tabs 04/07/22 losartan 50 mg tablet 100 mg PO DAILY #60 tabs 04/07/22 omeprazole 20 mg capsule,delayed 20 mg PO BID@0630,1630 #60 caps 04/07/22 release sucralfate 100 mg/mL oral 1 g (10 mL) PO BID 30 days #600 mL 04/07/22 suspension Allergies Allergy/AdvReac Type Severity Reaction Status Date / Time No Known Allergies Allergy Verified 04/04/22 12:19 lisinopril Allergy Unknown cough Uncoded 05/16/17 00:00 protonix Allergy Unknown ringing in Uncoded 05/16/17 00:00 ear Review of Systems Review of Systems: Constitutional : No Weight loss, No Fever, No Chills, No Fatigue, No Malaise ENT/Mouth : No sore throat, No Rhinorrhea Eyes: No Eye Pain, No Swelling, No Redness Cardiovascular : No Chest Pain, No SOB, No Dyspnea on Exertion, No Orthopnea, No Edema, No Palpitations Respiratory : No Cough, No Sputum, No Wheezing Gastrointestinal : No Nausea, No Vomiting, No Diarrhea, No Constipation, No abdominal Pain, No Hematochezia, No Melena Genitourinary : No Dysuria, No Urinary Frequency, No Hematuria, Musculoskeletal : No joint pain, No Myalgias, No Joint Swelling Skin : No Skin Lesions, No rash Neuro : No Weakness, No Numbness, No Dizziness, No Headache Psych : No Anxiety/Panic, No Depression All other systems reviewed and are negative Yes all other systems are reviewed and are negative [facility] Past Medical History Attestation statement: The following information was validated with the patient. Source: old records reviewed and nursing notes reviewed Medical History Abnormal EKG ADHD Depression Elevated troponin GERD (gastroesophageal reflux disease) Gout Hypertension Hypertriglyceridemia Periodic limb movement disorder Sleep apnea Type 2 diabetes mellitus Surgical History H/O gastric bypass Family History Family History Mother No problems noted. Social History Social History Household Members: Spouse and Other Housing: House Do you presently have visiting nurse or other home services: No Alcohol intake: never Patient Tobacco Use Status: Never used Tobacco Use of substances other than those prescribed or required for medical reasons: No Substance Use Type: Marijuana Advance Directives: No service: No Current occupational status: unemployed Physical Exam Vital Signs: Vital Signs: Last Vital Signs Temp 98.2 F 08/02/22 22:48 Pulse 87 08/02/22 22:53 Resp 20 08/02/22 22:53 BP 149/99 H 08/02/22 22:53 Pulse Ox 100 08/02/22 22:53 O2 Del Method 08/02/22 22:53 BMI result Body Mass Index 25.2 Vital signs stable Appearance: Alert.? Oriented X3.? No acute distress.? Head: Normocephalic, atraumatic, no step-offs or deformities Eyes: Pupils equal, round and reactive to light.? ENT: Pharynx normal.? Neck: Normal inspection.? Neck supple.? CVS: Normal heart rate and rhythm.? Pulses normal.? Respiratory: No respiratory distress.? Breath sounds normal.? Abdomen: Soft and nontender.? Skin: Skin warm and dry.? Normal skin color.? Normal skin turgor.? Extremities: No lower extremity edema.? No calf ttp. 5/5 strength to bilateral upper and lower extremities Neuro: Oriented X 3.? No motor deficit.? No sensory deficit. CN 2-12 intact Course Reevaluation(s) Reevaluation #1: Patient's CBC with leukocytosis x2 patient without any symptoms at this time, no upper respiratory symptoms, chest pain or shortness of breath. Likely reactive. Chemistry with no acute electrolyte abnormalities requiring intervention. Troponin negative, BNP within normal limits. CXR no acute findings. COVID negative. Dry scan of the chest ordered and pending. Also ordering a CT of the head as patient had a near syncopal episode Time: 01:23 Reevaluation #2: Trop repeat, UA, chest and head ct pending at this time sign out to Time: 01:26 MDM - Chest Pain MDM Narrative Medical decision making narrative: 2300 57-year-old male history of hypertension presents with a near syncopal episode versus allergic reaction, he reported substernal nonradiating chest pain after the near syncopal episode, all this improved after taking Benadryl. He tells me he is not unsure of this is anxiety versus an allergic reaction. All symptoms have resolved upon arrival to the emergency department. Examination benign. NIHSS 0 Likey pre syncope vs allergic reaction. Low suspcion for PE or ACS. At this time is basic labs, urine, chest x-ray, cardiac workup, D-dimer, EKG. Medical Records Data Attestation: I reviewed the patient's medical records. Lab Data Attestation: I reviewed the patient's lab results. Result diagrams: 08/03/22 01:10 08/02/22 23:27 Labs: Lab Results 08/02/22 08/02/22 08/02/22 Range/Units 23:27 23:27 23:27 WBC 16.4 H (4.8-10.8) X10*3/uL RBC 6.09 H D (4.60-5.80) X10*6/uL Hgb 16.6 D (14.0-18.0) g/dl Hct 46.0 D (42.0-52.0) % MCV 75.5 L (80.0-98.0) fL MCH 27.3 (27.0-33.0) pg MCHC 36.1 H (31.0-36.0) g/dl RDW 16.4 H (11.0-16.0) % Plt Count 310 (160-400) X10*3/uL MPV 10.0 (9.4-12.4) fL Immature Gran % (Auto) 0.6 H (0.0-0.4) % Neut % (Auto) 82.2 H (45-73) % Lymph % (Auto) 10.3 L (20-40) % [place] % (Auto) 6.5 (2-11) % Eos % (Auto) 0.2 (0-4) % Baso % (Auto) 0.2 (0-2) % Lymph # (Auto) 1.7 (1.2-4.9) X10*3/uL [place] # (Auto) 1.1 (0.1-1.2) X10*3/uL Eos # (Auto) 0.0 (0.0-0.4) X10*3/uL Baso # (Auto) 0.0 (0.0-0.2) X10*3/uL Abs Immat Gran (auto) 0.09 H (0.00-0.03) X10*3/uL Absolute Neuts (auto) 13.4 H (2.0-8.3) x10*3/uL Absolute Nucleated RBC 0.000 (0.0-0.012) X10*3/uL Nucleated RBC % (auto) 0.0 (0.0-0.2) /100WBC D-Dimer High Sensitivty NG/ML Sodium 138 (135-145) mmol/L Potassium 3.5 D (3.3-5.1) mmol/L Chloride 99 (96-108) mmol/L Carbon Dioxide 22 (22-29) mmol/L Anion Gap 21 H (12-20) BUN 15 D (9-16) mg/dL Creatinine 0.92 (0.5-1.4) mg/dL Estim Creat Clear Calc 87.5 Estimated GFR > 60 Random Glucose 186 H (60-115) mg/dL Calcium 10.3 H D (8.4-10.2) mg/dL Troponin I High Sens 6.8 D (<3.5-35.0) ng/L B-Natriuretic Peptide 30 (<100) pg/mL COVID-19 ([facility]) (Negative) COVID-19 Clin Com 08/02/22 08/03/22 08/03/22 Range/Units 23:27 00:04 01:10 WBC 17.2 H (4.8-10.8) X10*3/uL RBC 5.64 (4.60-5.80) X10*6/uL Hgb 15.4 (14.0-18.0) g/dl Hct 42.3 (42.0-52.0) % MCV 75.0 L (80.0-98.0) fL MCH 27.3 (27.0-33.0) pg MCHC 36.4 H (31.0-36.0) g/dl RDW 16.3 H (11.0-16.0) % Plt Count 332 (160-400) X10*3/uL MPV 9.5 (9.4-12.4) fL Immature Gran % (Auto) 0.4 (0.0-0.4) % Neut % (Auto) 75.2 H (45-73) % Lymph % (Auto) 14.6 L (20-40) % [place] % (Auto) 8.6 (2-11) % Eos % (Auto) 0.6 (0-4) % Baso % (Auto) 0.6 (0-2) % Lymph # (Auto) 2.5 (1.2-4.9) X10*3/uL [place] # (Auto) 1.5 H (0.1-1.2) X10*3/uL Eos # (Auto) 0.1 (0.0-0.4) X10*3/uL Baso # (Auto) 0.1 (0.0-0.2) X10*3/uL Abs Immat Gran (auto) 0.07 H (0.00-0.03) X10*3/uL Absolute Neuts (auto) 12.9 H (2.0-8.3) x10*3/uL Absolute Nucleated RBC 0.000 (0.0-0.012) X10*3/uL Nucleated RBC % (auto) 0.0 (0.0-0.2) /100WBC D-Dimer High Sensitivty < 150 NG/ML Sodium (135-145) mmol/L Potassium (3.3-5.1) mmol/L Chloride (96-108) mmol/L Carbon Dioxide (22-29) mmol/L Anion Gap (12-20) BUN (9-16) mg/dL Creatinine (0.5-1.4) mg/dL Estim Creat Clear Calc Estimated GFR Random Glucose (60-115) mg/dL Calcium (8.4-10.2) mg/dL Troponin I High Sens (<3.5-35.0) ng/L B-Natriuretic Peptide (<100) pg/mL COVID-19 ([facility]) Negative (Negative) COVID-19 Clin Com See Note ECG Data ECG #1: Attestation: I personally reviewed and interpreted this ECG as follows: ECG interpretation date: 08/03/22 ECG interpretation time: 01:25 Prior ECG tracings: available for review Interpretation: Ventricular rate of 83, AR normal, QRS normal, QT/QTC slightly prolonged. EKG with normal sinus rhythm, no significant changes when compared to previous. Critical Care Time Critical Care Time Critical Care Time: No Discharge Plan Discharge Clinical Impression: Near syncope, Chest pain, Shortness of breath, Leukocytosis Patient Disposition: Still a Patient Prescriptions: No Action fluoxetine 40 mg capsule 1 cap PO DAILY metformin 500 mg tablet 1 tab PO BIDWM atorvastatin 10 mg tablet 1 tab PO DAILY oxycodone-acetaminophen 10-325 mg tablet 1 tab PO QID gabapentin 800 mg tablet 1 tab PO TID lidocaine 5 % adhesive patch,medicated 1 patch topical DAILY epinephrine 0.3 mg/0.3 mL auto-injector 0.3 mg IM USEASDIRECTD PRN (Reason: Anaphylaxis) fluticasone propionate 50 mcg/actuation spray,suspension 2 spray intranasal DAILY PRN (Reason: Allergy Symptoms) pregabalin 300 mg capsule 1 cap PO BID losartan 50 mg Tablet 100 mg PO DAILY Qty: 60 0RF Protocol: Hold for SBP< HOLD for SBP < : 90 sucralfate 100 mg/mL Suspension 1 g PO BID 30 Days Qty: 600 0RF amlodipine 5 mg Tablet 5 mg PO DAILY Qty: 30 0RF Protocol: Hold for SBP< HOLD for SBP < : 90 omeprazole 20 mg Capsule,Delayed Release(Dr/Ec) 20 mg PO BID@0630,1630 Qty: 60 0RF
--- OUTSIDE RECORDS SUMMARY | 2022-08-02 23:21 | XMS_ITS | Continuity of Care Document ---
:1965 Author Organization [facility] Address Unavailable , Care Team Providers Name Role Phone Burak Orr III, MD Primary Care Phys[id number] Date(s): 12/08/21 - 01/19/22 [facility] Attending Physician: Joann Gunn MD Admitting Physician: Joann Gunn MD Allergies, Adverse Reactions, Alerts Substance Reaction Severity Status lisinopril Active Protonix Active Medications acetaminophen-oxycodone 325 mg-10 mg oral tablet 1 tablet, By Mouth, Every 6 hours, 0 Refills, Maintenance, 04/01/21 10:59:00 EDT, Partial fill upon patient request if the prescription is for a schedule II opioid drug. Start Date: 04/01/21 Status: OrderedamiTRIPTYLINE = 50 mg, By Mouth, Daily at bedtime, 0 Refills, Maintenance, 04/01/21 11:01:00 EDT, Partial fill upon patient request if the prescription is for a schedule II opioid drug. Start Date: 04/01/21 Status: Orderedaspirin 81 mg oral capsule 4 capsule = 324 mg, By Mouth, Daily, 0 Refills, Maintenance, 08/03/21 12:02:00 EDT, Partial fill upon patient request if the prescription is for a schedule II opioid drug. Start Date: 08/03/21 Status: OrderedBactrim DS 800 mg-160 mg oral tablet one, By Mouth, Every 12 hours, 0 Refills, Maintenance, 08/11/21 15:11:00 EDT, Partial fill upon patient request if the prescription is for a schedule II opioid drug. Start Date: 08/11/21 Stop Date: 08/21/21 Status: OrderedCPAP Machine See Instructions, Maintenance, 04/01/21 11:01:00 EDT, Supply Start Date: 04/01/21 Status: OrderedEPINEPHrine 0.3 mg injectable solution = 0.3 mg, Intramuscular, Once, 0 Refills, Maintenance, 04/01/21 11:00:00 EDT, Partial fill upon patient request if the prescription is for a schedule II opioid drug. Start Date: 04/01/21 Status: OrderedFLUoxetine 10 mg oral capsule 10 mg, 1, capsule, By Mouth, Daily, # 30 capsule, Refills 1, Tot. Refills 1, Maintenance, 08/18/21 11:41:00 EDT, Route to Pharmacy Electronically, [facility], Cross-taper with amitriptyline, 175, cm, 08/03/21 11:37:00 EDT, Height Start Date: 08/18/21 Status: Orderedfluticasone 50 mcg/inh nasal spray Daily, 0 Refills, Maintenance, 04/01/21 11:01:00 EDT, Partial fill upon patient request if the prescription is for a schedule II opioid drug. Start Date: 04/01/21 Status: OrderedGabapentin By Mouth, 0 Refills, Maintenance, 04/01/21 11:01:00 EDT, Partial fill upon patient request if the prescription is for a schedule II opioid drug. Start Date: 04/01/21 Status: OrderedIbuprofen Refills 0, Maintenance, 04/01/21 11:00:00 EDT, Partial fill upon patient request if the prescriptionis for a schedule II opioid drug. Start Date: 04/01/21 Status: Orderedketoconazole 2% topical cream Topically, Daily, 0 Refills, Maintenance, 04/01/21 11:00:00 EDT, Partial fill upon patient request if the prescription is for a schedule II opioid drug. Start Date: 04/01/21 Status: Orderedlosartan 50 mg oral tablet 50 mg, 1, tablet, By Mouth, Daily, Refills 0, Maintenance, 08/03/21 12:04:00 EDT, Partial fill upon patient request if the prescription is for a schedule II opioid drug. Start Date: 08/03/21 Status: OrderedMagnesium Amino Acids Chelate By Mouth, 0 Refills, Maintenance, 04/01/21 11:00:00 EDT, Partial fill upon patient request if the prescription is for a schedule II opioid drug. Start Date: 04/01/21 Status: OrderedMetformin = 500 mg, By Mouth, 2 times a day, 0 Refills, Maintenance, 04/01/21 11:00:00 EDT, Partial fill upon patient request if the prescription is for a schedule II opioid drug. Start Date: 04/01/21 Status: Orderedprazosin 1 mg oral capsule 1 mg, 1, capsule, By Mouth, Daily, PRN, # 14 capsule, Refills 0, Tot. Refills 0, Maintenance, Anxiety, 08/04/21 13:42:00 EDT, Route to Pharmacy Electronically, [facility], Partial fill upon patient request if the prescription is for a schedule II... Start Date: 08/04/21 Stop Date: 08/18/21 Status: OrderedPregabalin = 300 mg, By Mouth, 2 times a day, 0 Refills, Maintenance, 04/01/21 11:01:00 EDT, Partial fill upon patient request if the prescription is for a schedule II opioid drug. Start Date: 04/01/21 Status: Ordered Problem List Condition Effective Dates Status Health Status Informant Posttraumatic stress Active disorder(Confirmed)
--- OUTSIDE RECORDS SUMMARY | 2022-08-02 23:21 | XMS_ITS | Continuity of Care Document ---
:1965 Author Organization [facility] Address [address], [address] Floor, [address] [place] [id number]- Care Team Providers Name Role Phone Burak Orr III, MD Primary Care Physician En[place] [facility] [place](s[place] 04/01/21 - 05/01/21 [facility] [address], [address], [address] [place] [id number] Attending Physician: Nicci Aguirre Admitting Physician: AdmNicci johnson Referring Physician: Admtr Ar8 Allergies, Adverse Reactions, Alerts Substance Reaction Severity Status lisinopril Active Protonix Active Medications acetaminophen-oxycodone 325 mg-10 mg oral tablet 1 tablet, By Mouth, Every 6 hours, 0 Refills, Maintenance, 04/01/21 10:59:00 EDT, Partial fill upon patient request if the prescription is for a schedule II opioid drug. Start Date: 04/01/21 Status: OrderedamiTRIPTYLINE By Mouth, Daily at bedtime, 0 Refills, Maintenance, 04/01/21 11:01:00 EDT, Partial fill upon patientrequest if the prescription is for a schedule II opioid drug. Start Date: 04/01/21 Status: OrderedCPAP Machine See Instructions, Maintenance, 04/01/21 11:01:00 EDT, Supply Start Date: 04/01/21 Status: OrderedCrutches See Instructions, # 1 each, Maintenance, bear weight as tolerated, 06/11/15 2:29:45, Compound Start Date: 06/11/15 Status: OrderedEPINEPHrine 0.3 mg injectable solution = 0.3 mg, Intramuscular, Once, 0 Refills, Maintenance, 04/01/21 11:00:00 EDT, Partial fill upon patient request if the prescription is for a schedule II opioid drug. Start Date: 04/01/21 Status: Orderedfluticasone 50 mcg/inh nasal spray Daily, [...] II opioid drug. Start Date: 04/01/21 Status: Orderedleft air cast left air cast, See Instructions, # 1 each, Refills 0, Tot. Refills 0, Maintenance, bear weight as tolerated, 06/11/15 2:30:30, Compound Start Date: 06/11/15 Status: OrderedMagnesium Amino Acids Chelate By Mouth, 0 Refills, Maintenance, 04/01/21 11:00:00 EDT, Partial fill upon patient request if the prescription is for a schedule II opioid drug. Start Date: 04/01/21 Status: OrderedMetformin By Mouth, 0 Refills, Maintenance, 04/01/21 11:00:00 EDT, Partial fill upon patient request if the prescription is for a schedule II opioid drug. Start Date: 04/01/21 Status: OrderedPregabalin By Mouth, 0 Refills, Maintenance, 04/01/21 11:01:00 EDT, Partial fill upon patient request if the prescription is for a schedule II opioid drug. Start Date: 04/01/21 Status: Ordered
--- OUTSIDE RECORDS SUMMARY | 2022-08-02 23:21 | XMS_ITS | Continuity of Care Document ---
:1965 Author Organization [facility] Address Unavailable , Care Team Providers Name Role Phone Burak Orr III, MD Primary Care Physician [place]counter [facility] [place](s): 11/30/21 - 01/07/22 [facility] Attending Physician: Joann Gunn MD Admitting [...]
--- OUTSIDE RECORDS SUMMARY | 2022-08-02 23:21 | XMS_ITS | Continuity of Care Document ---
:1965 Author Organization [facility] Address Unavailable , Care Team Providers Name Role Phone Kirby BUSTOS MD, Burak Ackerman Primary Care Physician Encounter [facility] [place] [place] Date(s): 11/30/21 - 12/30/21 [facility] Allergies, Adverse Reactions, Alerts Substance Reaction Severity [...]
--- OUTSIDE RECORDS SUMMARY | 2022-08-02 23:21 | XMS_ITS | Continuity of Care Document ---
:1965 Author Organization [facility] Address Unavailable , Care Team Providers Name Role Phone Burak Orr III, MD Primary Care Physician Encounter [facility] [place] Date(s): 11/30/21 - 12/31/21 [facility] Attending Physician: Joann Gunn MD Admitting [...]
--- OUTSIDE RECORDS SUMMARY | 2022-08-02 23:21 | XMS_ITS | Continuity of Care Document ---
:1965 Author Organization [facility] Address [address] [place] [id number]- Care Team Providers Name Role Phone Kirby BUSTOS MD, Burak Ackerman Primary Care Physician Encounter [facility] Date(s): 10/06/21 - 10/06/[address] [phone]- Encounter Diagnosis Chest wall contusion (Final) - 10/06/21 Discharge Disposition: A-D/C Home Attending Physician: Marisol Valentin MD Admitting Physician: Marisol Valentin MD Referring Physician: Not on Staff, Referring MD Allergies, Adverse Reactions, Alerts Substance Reaction Severity Status lisinopril Active Protonix Active Medications Acetaminophen Tablet 975 mg, Tablet, By Mouth, Once, STAT, 10/06/21 8:32:00 EST, Stop date 10/06/21 8:32:00 EST Start Date: 10/06/21 Stop Date: 10/06/21 Status: Completedacetaminophen-oxycodone 325 mg-10 mg oral tablet 1 tablet, [...] II opioid drug. Start Date: 04/01/21 Status: Orderedgabapentin 400 mg oral capsule 800 mg, Capsule, By Mouth, Once, STAT, 10/06/21 8:30:00 EST, Stop date 10/06/21 8:30:00 EST Start Date: 10/06/21 Stop Date: 10/06/21 Status: CompletedIbuprofen Refills 0, Maintenance, 04/01/21 11:00:00 EDT, Partial [...] II opioid drug. Start Date: 04/01/21 Status: OrderedMotrin Tablet 600 mg, Tablet, By Mouth, Once, STAT, 10/06/21 8:32:00 EST, Stop date 10/06/21 8:32:00 EST Start Date: 10/06/21 Stop Date: 10/06/21 Status: Completedprazosin 1 mg oral capsule 1 mg, 1, [...] Health Status Informant Posttraumatic stress Active disorder(Confirmed) Results Radiology Reports Exam Date Time Procedure Performing Provider Status 10/06/21 8:59 AM Ribs W/ PA Chest Left Allison Blackburn; Auth (Rebekah doran) Notes:(Ribs W/ PA Chest Left) Reason For Exam: TraumaRESULT: Ribs W/ PA Chest Left Ribs W/ PA Chest Left Reason: Trauma; Clinical Question(s): Fracture COMPARISON: Plain film 12/17/08 FINDINGS: No acute cardiopulmonary process or evidence of rib fracture. Incidental note of a left subacromial spur IMPRESSION: No acute cardiopulmonary process or evidence of rib fracture. WSN: [id number] Ordering Physician: Jean Daniel Dictated By: Avi Da Silva MD Dictated Date/Time: 10/06/21 9:04 am Reviewed By: Avi Da Silva MD Signed By: Avi Da Silva MD Signed Date/Time: 10/06/21 9:04 am Transcribed By: THANIA Transcribed Date/Time: 10/06/21 9:02 am Vital Signs Most recent to oldest 1 2 3 4 [Reference Range]: Oxygen Saturation 98 % 99 % [94-100 %] (10/06/21 12:41 PM) (10/06/21 9:04 AM) Pulse Rate [55-90 bpm] 75 bpm 97 bpm (10/06/21 12:41 PM) *H* (10/06/21 9:04 AM) Blood Pressure 125/74 mm Hg 154/87 mm Hg [90-138/55-84 mm Hg] (10/06/21 12:41 PM) *H* (10/06/21 9:04 AM) Respiratory Rate [16-30 16 br/min 16 br/min 16 br/min 16 b r/min br/min] (10/06/21 12:41 PM) (10/06/21 10:25 AM) (10/06/21 10:25 A M) (10/06/21 10:25 AM) Temperature [96.8-100.4 98.6 DegF 97.6 DegF DegF] (10/06/21 12:41 PM) (10/06/21 9:04 AM) Mode of Delivery Room air Room air (Oxygen) (10/06/21 12:41 PM) (10/06/21 9:04 AM) Blood pressure sites Arm, right (10/06/21 12:41 PM) Temperature Route Oral Oral (10/06/21 12:41 PM) (10/06/21 9:04 AM)
--- OUTSIDE RECORDS SUMMARY | 2022-08-02 23:21 | XMS_ITS | Continuity of Care Document ---
:1965 Author Organization [facility] Address [address] [place], [address] Floor, [address] [place] [id number]- Care Team Providers Name Role Phone Kirby BUSTOS MD, Burak Ackerman Primary Care Physician [id number] Date(s): 03/24/21 - 05/01/21 [facility] [address] [place], [address]rd [facility], [address] [place] [id number] Attending Physician: Joann Gunn MD Admitting Physician: Joann Gunn MD Referring Physician: Pia Golden Allergies, Adverse Reactions, Alerts Substance Reaction Severity [...]
--- OUTSIDE RECORDS SUMMARY | 2022-08-02 23:21 | XMS_ITS | Continuity of Care Document ---
:1965 Author Organization [facility] Address Unavailable , Care Team Providers Name Role Phone Burak Orr III, MD Primary Care Physician [place] [facility] [place] 12/20/21 - 01/19/22 [facility] Attending Physician: Nicci Aguirre Admitting Physician: Nicci Aguirre Referring Physician: Nicci Aguirre Allergies, Adverse Reactions, Alerts Substance Reaction Severity [...]
[2022-08-02 23:38] LABS: Eosinophils Percent Auto 0.2 % (0-4); Hemoglobin 16.6 g/dl (14.0-18.0); Lymphocytes Absolute Auto 1.7 X10*3/uL (1.2-4.9); PLT CLUMP 1; SCAN SMEAR FLAG 1
[2022-08-02 23:40] LABS: Basophils Percent Auto 0.2 % (0-2); Imm Gran Abs Auto 0.09 X10*3/uL (0.00-0.03); Imm Gran Pct Auto 0.6 % (0.0-0.4); Lymphocytes Percent Auto 10.3 % (20-40); Mean Corpuscular HGB Conc 36.1 g/dl (31.0-36.0); Mean Corpuscular Hemoglobin 27.3 pg (27.0-33.0); Mean Corpuscular Volume 75.5 fL (80.0-98.0); Monocytes Absolute Auto 1.1 X10*3/uL (0.1-1.2); Monocytes Percent Auto 6.5 % (2-11); Neutrophils Absolute Auto 13.4 x10*3/uL (2.0-8.3); Neutrophils Percent Auto 82.2 % (45-73); Red Blood Count 6.09 X10*6/uL (4.60-5.80); Red Cell Distribution Width 16.4 % (11.0-16.0)
[2022-08-02 23:41] LABS: MANUAL DIFF FLAG NO; White Blood Count 16.4 X10*3/uL (4.8-10.8)
[2022-08-02 23:51] LABS: COVID-19 Test Negative (Negative); IDNOW Serial# 16C4AD1C
[2022-08-02 23:57] LABS: Platelet Count 310 X10*3/uL (160-400)
[2022-08-03] VITALS: BP 153/87; PULSE 99; RESP 14; O2SAT 94
[2022-08-03 00:01] LABS: Troponin-I High Sensitivity 6.8 ng/L (<3.5-35.0)
[2022-08-03 00:19] LABS: D Dimer High Sensitivity < 150 NG/ML
[2022-08-03 00:22] LABS: Anion Gap 21 (12-20); Blood Urea Nitrogen 15 mg/dL (9-16); Calcium 10.3 mg/dL (8.4-10.2); Carbon Dioxide 22 mmol/L (22-29); Chloride 99 mmol/L (96-108); Creatinine Clr Calc Pharmacy 87.5; Estimated Glomerular Filt Rate > 60; Glucose Random 186 mg/dL (60-115); Potassium 3.5 mmol/L (3.3-5.1); Sodium 138 mmol/L (135-145)
[2022-08-03] MEDS: Gabapentin 300 MG CAPSULE 900 MG PO (01:02)
[2022-08-03] MEDS: 0.9 % Sodium Chloride 1,000 ML 999 ML IV (01:10)
[2022-08-03 01:14] LABS: B Type Natriuretic Peptide 30 pg/mL (<100)
[2022-08-03 01:16] LABS: MANUAL DIFF FLAG NO
[2022-08-03 01:17] LABS: Basophils Absolute Auto 0.1 X10*3/uL (0.0-0.2); Basophils Percent Auto 0.6 % (0-2); Eosinophils Absolute Auto 0.1 X10*3/uL (0.0-0.4); Eosinophils Percent Auto 0.6 % (0-4); Hematocrit 42.3 % (42.0-52.0); Hemoglobin 15.4 g/dl (14.0-18.0); Imm Gran Abs Auto 0.07 X10*3/uL (0.00-0.03); Imm Gran Pct Auto 0.4 % (0.0-0.4); Lymphocytes Absolute Auto 2.5 X10*3/uL (1.2-4.9); Lymphocytes Percent Auto 14.6 % (20-40); Mean Corpuscular HGB Conc 36.4 g/dl (31.0-36.0); Mean Corpuscular Hemoglobin 27.3 pg (27.0-33.0); Mean Platelet Volume 9.5 fL (9.4-12.4); Monocytes Absolute Auto 1.5 X10*3/uL (0.1-1.2); Monocytes Percent Auto 8.6 % (2-11); Neutrophils Absolute Auto 12.9 x10*3/uL (2.0-8.3); Neutrophils Percent Auto 75.2 % (45-73); Platelet Count 332 X10*3/uL (160-400); Red Blood Count 5.64 X10*6/uL (4.60-5.80); Red Cell Distribution Width 16.3 % (11.0-16.0); White Blood Count 17.2 X10*3/uL (4.8-10.8)
[2022-08-03 02:18] LABS: Appearance Urine Clear; Color Urine Yellow; Glucose Urine UA 250 mg/dL (Negative); Leukocyte Esterase Urine Small (1+) (Negative); Nitrite Urine Negative (Negative); UMIC TRIGGER UACC YES; Urine Blood Small (1+) (Negative); Urine Ketones Trace mg/dL (Negative); Urine Protein Trace mg/dL (Neg-Trace)
[2022-08-03 02:26] LABS: Bacteria Urine None Seen (None Seen); Hyaline Casts Urine 0-2 /LPF (0-2); Squamous Epithelial Cell Urine 0-2 /HPF (0-2); UACC Culture Trigger YES
--- NOTE | 2022-08-03 03:45 | PC.NURSE ---
Reviewed discharge instructions with pt. pt verbalized understanding. No sob or chest pain no sign of distress.
== END 2022-08-03 03:53 | disposition home or self-care (01) ==
PROVIDERS: Physician Assistant; Emergency Provider Internal Medicine; PCP Internal Medicine
DX: R55 Syncope and collapse (principal); R07.89 Other chest pain; R06.02 Shortness of breath; M54.6 Pain in thoracic spine; Z79.899 Other long term (current) drug therapy; Z20.822 Contact with and (suspected) exposure to COVID-19
CPT/HCPCS: 36415; 70450; 71045; 71250; 80048; 81001; 83880; 84484; 85025; 85379; 87086; 87635; 93005; 96360; 99284; 99285

== ENCOUNTER 2022-11-15 02:56 | Emergency (ER) | payer OTHER, SELFPAY ==
--- NOTE | 2022-11-15 | ECG_ITS ---
Test Reason : WEAKNESS Blood Pressure : / mmHG Vent. Rate : 074 BPM Atrial Rate : 074 BPM P-R Int : 216 ms QRS Dur : 092 ms QT Int : 420 ms P-R-T Axes : 000 000 009 degrees QTc Int : 466 ms Sinus rhythm with 1st degree A-V block Minimal voltage criteria for LVH, may be normal variant ( R in aVL ) Borderline ECG When compared with ECG of 02-AUG-2022 22:40, AR interval has increased Nonspecific T wave abnormality now evident in Inferior leads Referred By: Generic ED Physician Electronically Signed By:YANCI JACKSON MD
[2022-11-15 03:01] VITALS: BP 142/85; PULSE 76; RESP 16; TEMP 36.8; O2SAT 93
[2022-11-15 03:08] VITALS: BP 135/79; BP 142/85; PULSE 73; PULSE 76; RESP 16; TEMP 36.8; O2SAT 96; O2SAT 98; O2SAT 99; BMI 26.6
[2022-11-15 03:29] LABS: MANUAL DIFF FLAG NO
[2022-11-15 03:30] LABS: Basophils Absolute Auto 0.1 X10*3/uL (0.0-0.2); Basophils Percent Auto 1.7 % (0-2); Eosinophils Absolute Auto 0.2 X10*3/uL (0.0-0.4); Eosinophils Percent Auto 3.5 % (0-4); Hematocrit 35.1 % (42.0-52.0); Hemoglobin 12.9 g/dl (14.0-18.0); Imm Gran Abs Auto 0.02 X10*3/uL (0.00-0.03); Imm Gran Pct Auto 0.3 % (0.0-0.4); Lymphocytes Percent Auto 16.2 % (20-40); Mean Corpuscular HGB Conc 36.8 g/dl (31.0-36.0); Mean Corpuscular Hemoglobin 30.8 pg (27.0-33.0); Mean Corpuscular Volume 83.8 fL (80.0-98.0); Mean Platelet Volume 9.5 fL (9.4-12.4); Monocytes Absolute Auto 0.7 X10*3/uL (0.1-1.2); Monocytes Percent Auto 11.7 % (2-11); Neutrophils Percent Auto 66.6 % (45-73); Platelet Count 252 X10*3/uL (160-400); Red Blood Count 4.19 X10*6/uL (4.60-5.80); Red Cell Distribution Width 12.3 % (11.0-16.0)
[2022-11-15 03:46] LABS: Alanine Aminotransferase 22 U/L (0-40); Albumin Level 3.6 g/dL (3.5-5.0); Alkaline Phosphatase 60 U/L (39-117); Anion Gap 13 (12-20); Aspartate Amino Transferase 19 U/L (5-37); Bilirubin Total 0.5 mg/dL (0.0-1.0); Blood Urea Nitrogen 13 mg/dL (9-16); Calcium 8.4 mg/dL (8.4-10.2); Carbon Dioxide 25 mmol/L (22-29); Chloride 99 mmol/L (96-108); Creatinine Clr Calc Pharmacy 86.5; Estimated Glomerular Filt Rate > 60; Glucose Random 320 mg/dL (60-115); Sodium 133 mmol/L (135-145)
[2022-11-15 06:07] VITALS: BP 140/91; PULSE 84; RESP 16; TEMP 36.4; O2SAT 98
--- NOTE | 2022-11-15 06:41 | ED.GENADULT ---
HPI - General Adult General Chief complaint: General Medical Stated complaint: dark stools,weakness Time Seen by Provider: 11/15/22 06:30 Source: patient History of Present Illness HPI narrative: Patient presents with several days worth of dark stools. He states he cannot remember specifically when they started. Thinks the last episode was 2 days ago. He states he has been feeling lightheaded, confused, ?almost as if drunk?. It a similar episode last summer in which she had a GI bleed secondary to gastric ulcers. He has a history of gastric bypass surgery and is followed by Gastroenterology at [facility]. He is due for an upper endoscopy in November, next month. He denies any abdominal pain. He states he occasionally gets nausea. No diarrhea other than the black stools. No vomiting No recent NSAID use or other precipitants that he can think of. He arrived by EMS. Vital signs stable EN route. Related Data Home Medications Medication Instructions Recorded Confirmed atorvastatin 10 mg tablet 1 tab PO DAILY 04/04/22 04/04/22 epinephrine 0.3 mg/0.3 mL 0.3 mg IM USEASDIRECTD PRN 04/04/22 04/04/22 injection, auto-injector Anaphylaxis fluoxetine 40 mg capsule 1 cap PO DAILY 04/04/22 04/04/22 fluticasone propionate 50 2 spray intranasal DAILY PRN 04/04/22 04/04/22 mcg/actuation nasal Allergy Symptoms spray,suspension gabapentin 800 mg tablet 1 tab PO TID 04/04/22 04/04/22 lidocaine 5 % topical patch 1 patch topical DAILY 04/04/22 04/04/22 metformin 500 mg tablet 1 tab PO BIDWM 04/04/22 04/04/22 oxycodone-acetaminophen 10 mg-325 1 tab PO QID 04/04/22 04/04/22 mg tablet pregabalin 300 mg capsule 1 cap PO BID 04/04/22 04/04/22 Previous Rx's Medication Instructions Recorded amlodipine 5 mg tablet 5 mg PO DAILY #30 tabs 04/07/22 losartan 50 mg tablet 100 mg PO DAILY #60 tabs 04/07/22 omeprazole 20 mg capsule,delayed 20 mg PO BID@0630,1630 #60 caps 04/07/22 release sucralfate 100 mg/mL oral 1 g (10 mL) PO BID 30 days #600 mL 04/07/22 suspension omeprazole 20 mg capsule,delayed 20 mg PO BID #20 caps 11/15/22 release Allergies Allergy/AdvReac Type Severity Reaction Status Date / Time No Known Allergies Allergy Verified 04/04/22 12:19 lisinopril Allergy Unknown cough Uncoded 05/16/17 00:00 protonix Allergy Unknown ringing in Uncoded 05/16/17 00:00 ear Review of Systems Constitutional: Comments: Awake alert. No acute distress Cardiovascular: Comments: No chest pain Respiratory: Comments: No dyspnea or cough Gastrointestinal: Comments: No abdominal pain. Dark stools as described Musculoskeletal: Comments: No musculoskeletal complaints Integumentary/Breasts: Comments: No change in skin color Neurologic: Comments: States feeling generally weak. No focal weakness Hematologic/Lymphatic: Comments: No history of coagulopathy. Not on blood thinners [facility] Past Medical History Medical History Abnormal EKG ADHD Depression Elevated troponin GERD (gastroesophageal reflux disease) Gout Hypertension Hypertriglyceridemia Periodic limb movement disorder Sleep apnea Type 2 diabetes mellitus Surgical History H/O gastric bypass Family History Family History Mother No problems noted. Social History Social History Household Members: Spouse and Other Housing: House Do you presently have visiting nurse or other home services: No Alcohol intake: never Patient Tobacco Use Status: Never used Tobacco Substance Use Type: Marijuana Advance Directives: No service: No Current occupational status: unemployed Physical Exam ED Vital Signs: Vital Signs - 24 hr 11/15/22 03:01 11/15/22 03:08 11/15/22 03:08 Temperature 98.3 F 98.3 F 98.3 F Pulse Rate 76 76 76 Respiratory Rate 16 16 16 Blood Pressure 142/85 H 142/85 H 142/85 H Pulse Oximetry 93 99 98 Oxygen Delivery Method Room Air Room Air Room Air 11/15/22 06:07 11/15/22 07:48 11/15/22 08:34 Temperature 97.6 F Pulse Rate 84 75 84 Respiratory Rate 16 16 17 Blood Pressure 140/91 H 149/95 H 171/108 H Pulse Oximetry 98 97 98 Oxygen Delivery Method Room Air Room Air Room Air BMI result Body Mass Index 26.6 Const Other: Awake alert. No acute distress Resp Other: Clear and equal bilaterally. Good air entry Cardio Other: Regular rate and rhythm without murmurs rubs or gallops GI Other: Soft nontender nondistended. Normoactive bowel sounds. Skin Other: Warm pink and dry. Conjunctiva not pale Neuro Other: Nonfocal neuro exam Course Course Course Narrative: GI bleed Anemia 07:27. Rectal exam shows brown stool. Await guaiac testing. 10:04. Stool guaiac is negative. I called his GI office, Dr. Thomas, and they can see him Sunday at 03:00 o'clock. Results and plan conveyed to the patient. He is stable for discharge home. Will double his daily dose of PPI. Medications Administered Discontinued Medications Generic Name Dose Route Start Last Admin Trade Name Freq PRN Reason Stop Dose Admin Pantoprazole Sodium 80 mg 11/15/22 06:39 11/15/22 07:47 Pantoprazole Sodium 40 Mg/10 Ml Vial IVPUSH 11/15/22 06:40 80 mg ONCE ONE Administration Medical Decision Making Medical Decision Making [facility] Narrative: Patient with history of gastric bypass and peptic ulcer disease with prior history of transfusion secondary to severe GI bleeding. Await results of stool guaiac testing. 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 He is hemodynamically stable at the moment without evidence of melena this morning. Likely has been having episodes intermittently. Lab Data 11/15/22 03:24 11/15/22 03:24 Labs: Lab Results 11/15/22 11/15/22 11/15/22 Range/Units 03:24 03:24 03:24 WBC 6.0 (4.8-10.8) X10*3/uL RBC 4.19 L D (4.60-5.80) X10*6/uL Hgb 12.9 L (14.0-18.0) g/dl Hct 35.1 L (42.0-52.0) % MCV 83.8 (80.0-98.0) fL MCH 30.8 (27.0-33.0) pg MCHC 36.8 H (31.0-36.0) g/dl RDW 12.3 (11.0-16.0) % Plt Count 252 (160-400) X10*3/uL MPV 9.5 (9.4-12.4) fL Immature Gran % (Auto) 0.3 (0.0-0.4) % Neut % (Auto) 66.6 (45-73) % Lymph % (Auto) 16.2 L (20-40) % Shackelford % (Auto) 11.7 H (2-11) % Eos % (Auto) 3.5 (0-4) % Baso % (Auto) 1.7 (0-2) % Lymph # (Auto) 1.0 L (1.2-4.9) X10*3/uL Shackelford # (Auto) 0.7 (0.1-1.2) X10*3/uL Eos # (Auto) 0.2 (0.0-0.4) X10*3/uL Baso # (Auto) 0.1 (0.0-0.2) X10*3/uL Abs Immat Gran (auto) 0.02 (0.00-0.03) X10*3/uL Absolute Neuts (auto) 4.0 (2.0-8.3) x10*3/uL Absolute Nucleated RBC 0.000 (0.0-0.012) X10*3/uL Nucleated RBC % (auto) 0.0 (0.0-0.2) /100WBC PT (10.0-13.1) SEC INR (0.9-1.1) Sodium 133 L (135-145) mmol/L Potassium 4.0 (3.3-5.1) mmol/L Chloride 99 (96-108) mmol/L Carbon Dioxide 25 (22-29) mmol/L Anion Gap 13 (12-20) BUN 13 (9-16) mg/dL Creatinine 0.93 (0.5-1.4) mg/dL Estim Creat Clear Calc 86.5 Estimated GFR > 60 Random Glucose 320 H (60-115) mg/dL Calcium 8.4 D (8.4-10.2) mg/dL Total Bilirubin 0.5 (0.0-1.0) mg/dL AST 19 (5-37) U/L ALT 22 (0-40) U/L Alkaline Phosphatase 60 (39-117) U/L Total Protein 6.0 L (6.5-8.0) g/dL Albumin 3.6 (3.5-5.0) g/dL Stool Occult Blood (NEGATIVE) Blood Type A Positive Antibody Screen NEGATIVE 11/15/22 11/15/22 Range/Units 07:34 07:41 WBC (4.8-10.8) X10*3/uL RBC (4.60-5.80) X10*6/uL Hgb (14.0-18.0) g/dl Hct (42.0-52.0) % MCV (80.0-98.0) fL MCH (27.0-33.0) pg MCHC (31.0-36.0) g/dl RDW (11.0-16.0) % Plt Count (160-400) X10*3/uL MPV (9.4-12.4) fL Immature Gran % (Auto) (0.0-0.4) % Neut % (Auto) (45-73) % Lymph % (Auto) (20-40) % Shackelford % (Auto) (2-11) % Eos % (Auto) (0-4) % Baso % (Auto) (0-2) % Lymph # (Auto) (1.2-4.9) X10*3/uL Shackelford # (Auto) (0.1-1.2) X10*3/uL Eos # (Auto) (0.0-0.4) X10*3/uL Baso # (Auto) (0.0-0.2) X10*3/uL Abs Immat Gran (auto) (0.00-0.03) X10*3/uL Absolute Neuts (auto) (2.0-8.3) x10*3/uL Absolute Nucleated RBC (0.0-0.012) X10*3/uL Nucleated RBC % (auto) (0.0-0.2) /100WBC PT 11.6 (10.0-13.1) SEC INR 1.0 (0.9-1.1) Sodium (135-145) mmol/L Potassium (3.3-5.1) mmol/L Chloride (96-108) mmol/L Carbon Dioxide (22-29) mmol/L Anion Gap (12-20) BUN (9-16) mg/dL Creatinine (0.5-1.4) mg/dL Estim Creat Clear Calc Estimated GFR Random Glucose (60-115) mg/dL Calcium (8.4-10.2) mg/dL Total Bilirubin (0.0-1.0) mg/dL AST (5-37) U/L ALT (0-40) U/L Alkaline Phosphatase (39-117) U/L Total Protein (6.5-8.0) g/dL Albumin (3.5-5.0) g/dL Stool Occult Blood NEGATIVE (NEGATIVE) Blood Type Antibody Screen Discharge Plan Discharge Clinical Impression: GI (gastrointestinal bleed) Patient Disposition: Home, Self-Care Instructions: Gastrointestinal Bleeding (ED) Additional Instructions: Your workup in the emergency department no evidence of ongoing bleeding. But you likely did have an episode earlier in the week. Double your omeprazole dose and take it twice daily. Dr. Thomas can see you in his office Sunday at 15:00. Be sure to make this appointment. Prescriptions: New omeprazole 20 mg capsule,delayed release(DR/EC) 20 mg PO BID Qty: 20 0RF No Action fluoxetine 40 mg capsule 1 cap PO DAILY metformin 500 mg tablet 1 tab PO BIDWM atorvastatin 10 mg tablet 1 tab PO DAILY oxycodone-acetaminophen 10-325 mg tablet 1 tab PO QID gabapentin 800 mg tablet 1 tab PO TID lidocaine 5 % adhesive patch,medicated 1 patch topical DAILY epinephrine 0.3 mg/0.3 mL auto-injector 0.3 mg IM USEASDIRECTD PRN (Reason: Anaphylaxis) fluticasone propionate 50 mcg/actuation spray,suspension 2 spray intranasal DAILY PRN (Reason: Allergy Symptoms) pregabalin 300 mg capsule 1 cap PO BID losartan 50 mg Tablet 100 mg PO DAILY Qty: 60 0RF Protocol: Hold for SBP< HOLD for SBP < : 90 sucralfate 100 mg/mL Suspension 1 g PO BID 30 Days Qty: 600 0RF amlodipine 5 mg Tablet 5 mg PO DAILY Qty: 30 0RF Protocol: Hold for SBP< HOLD for SBP < : 90 omeprazole 20 mg Capsule,Delayed Release(Dr/Ec) 20 mg PO BID@0630,1630 Qty: 60 0RF Interventions: ED Discharge Assessment Last Done: 11/15/22 10:37 Discharge Date/Time: 11/15/22 10:38
[2022-11-15 07:42] LABS: OBS Int Ctl Valid YES; OBS1 NEGATIVE (NEGATIVE)
[2022-11-15] MEDS: Pantoprazole Sodium 40 MG/10 ML VIAL 80 MG IVPUSH (07:47)
[2022-11-15 07:48] VITALS: BP 149/95; PULSE 75; RESP 16; O2SAT 97
--- NOTE | 2022-11-15 07:50 | PC.NURSE ---
Pt resting comfortably in bed, watching TV. Medicated per the DEC.
[2022-11-15 07:53] LABS: Prothrombin Time 11.6 SEC (10.0-13.1)
[2022-11-15 08:34] VITALS: BP 171/108; PULSE 84; RESP 17; O2SAT 98
== END 2022-11-15 10:38 | disposition home or self-care (01) ==
PROVIDERS: Emergency Provider Emergency Medicine; PCP Internal Medicine
DX: K92.2 Gastrointestinal hemorrhage, unspecified (principal); E11.9 Type 2 diabetes mellitus without complications; I10 Essential (primary) hypertension; E78.1 Pure hyperglyceridemia; F90.9 Attention-deficit hyperactivity disorder, unspecified type; F12.90 Cannabis use, unspecified, uncomplicated; Z98.84 Bariatric surgery status; Z79.02 Long term (current) use of antithrombotics/antiplatelets; Z79.899 Other long term (current) drug therapy; Z79.84 Long term (current) use of oral hypoglycemic drugs
CPT/HCPCS: 36415; 80053; 82272; 85025; 85610; 86850; 86900; 86901; 93005; 96374; 99284; 99285

== ENCOUNTER 2024-08-06 21:57 | Emergency (ER) | payer OTHER, SELFPAY ==
--- NOTE | ~2024-08-06 | CT_ITS ---
EXAMINATION: CT ANGIOGRAM HEAD CT ANGIOGRAM NECK CLINICAL INFORMATION: Aphasia. COMPARISON: CT head from 08/06/2024. TECHNIQUE: Initial noncontrast printer repair technician imaging of the head and neck was performed. Comparison is made with noncontrast head CT from earlier today. Test bolus sequences followed by intravenous administration 75 mL of Omnipaque 350. Helical imaging was performed in the axial plane from the aortic arch to the skull vertex. Delayed postcontrast imaging of the head was also performed. The data was processed at the ct mri technologist's workstation for generation of MIP sequences. Angled MIPs and volume rendered reformatted images were also generated at an offline 3D workstation. Stenoses are assessed in accordance with NASCET criteria unless otherwise indicated. This CT examination was performed using dose optimization techniques as appropriate, variously including the following: *Automated exposure control. *Adjustment of mA and/or kV according to patient size (this includes techniques or standardized protocols for targeted exams where dose is matched to indication/reason for exam; i.e. extremities or head). *Use of iterative reconstruction technique. DLP: 1529 mGy-cm FINDINGS: CT Head: There is no evidence of acute intracranial hemorrhage or edematous territorial infarction. Lou-white matter differentiation is preserved. There is no abnormal attenuation within the brain parenchyma. The ventricles are normal in morphology and size. No evidence for obstructive hydrocephalus. No abnormal mass effect or midline shift. No extra-axial fluid collections. No pathologic intra-axial enhancement or regional oligemia. No acute soft tissue or osseous abnormalities. Mild mucosal thickening of the paranasal sinuses. The mastoid air cells and middle ear cavities are clear. Multifocal odontogenic enamel erosions and periapical lucencies. CT Neck: The thyroid gland and remaining cervical soft tissues are within normal limits. Straightening of the normal cervical lordosis. Advanced degenerative disc disease from C5-C7. Facet and uncovertebral joint arthropathy leads to osseous encroachment on the neural foramina from C3-T1. CT Upper Chest: The visualized lung apices and upper mediastinum are within normal limits. Neck CTA: Aortic Arch: Normal contour and caliber with mild calcific atherosclerotic disease. Two vessel branching pattern of the arch with left common carotid artery arising from the brachiocephalic trunk. Great Vessel Origins: No significant stenosis of the branch origins. Right Common Carotid Artery: No focal stenosis or occlusion. Cervical Right Internal Carotid Artery: Calcific atherosclerotic disease of the carotid bulb and proximal internal carotid artery causing less than 50% stenosis. Left Common Carotid Artery: No focal stenosis or occlusion. Cervical Left Internal Carotid Artery: Calcific atherosclerotic disease of the carotid bulb and proximal internal carotid artery causing less than 50% stenosis. Cervical Right Vertebral Artery: Co-dominant. No focal stenosis or occlusion. Cervical Left Vertebral Artery: Co-dominant. No focal stenosis or occlusion. Brain CTA: Intracranial Internal Carotid Arteries: Calcific atherosclerotic disease of the intracranial internal carotid arteries without occlusion or flow-limiting stenosis. Right Anterior Cerebral Artery: The A1 segment is diminutive. Normal opacification of the distal CYRUS segments. Left Anterior Cerebral Artery: Normal A1 segment. Normal opacification of the distal CYRUS segments. Anterior Communicating Artery: Normal. Right Middle Cerebral Artery: Normal M1 segment of the MCA without focal stenosis or occlusion. Normal arborization of the distal segments. Left Middle Cerebral Artery: Normal M1 segment of the MCA without focal stenosis or occlusion. Normal arborization of the distal segments. Right Vertebral Artery: Normal V4 segment. Normal opacification of the proximal segments of the posterior inferior cerebellar artery. Left Vertebral Artery: Normal V4 segment. Normal opacification of the proximal segments of the posterior inferior cerebellar artery. Basilar Artery: Normal without focal stenosis or occlusion. Normal appearance of the proximal superior cerebellar arteries. Right Posterior Cerebral Artery: Normal P1 segment. Normal opacification of the distal SMOOTH STUCCO RESURFACER segments. Left Posterior Cerebral Artery: Normal P1 segment. Normal opacification of the distal SMOOTH STUCCO RESURFACER segments. Normal opacification of the superior sagittal, straight, transverse, and sigmoid sinuses. CT/CT angio head neck stroke IMPRESSION: 1. No evidence of acute intracranial hemorrhage or edematous territorial infarction. 2. CTA of the head and neck without proximal occlusion or flow-limiting stenosis. 3. Moderate multilevel degenerative spondyloarthropathy of the cervical spine. Electronically signed by: Bay Villatoro DO 08/06/2024 11:41 PM EDT
--- NOTE | ~2024-08-06 | XR_ITS ---
EXAMINATION: XR FOOT, LEFT CLINICAL INFORMATION: Fall. Pain fourth toe. COMPARISON: None available. TECHNIQUE: AP and lateral radiographs of the left foot. FINDINGS: No gross Lisfranc malalignment identified. A transverse fracture of the base of the fourth proximal phalanx is noted. A transverse fracture of the distal aspect of the fifth proximal phalanx is noted. Joint space narrowing, subchondral sclerosis and osteophytosis of the first interphalangeal joint is noted consistent with osteoarthritis. Multifocal joint space narrowing and subchondral sclerosis of the mid foot is present. Findings suspicious for a chronic, displaced talar neck fracture are noted with dorsal subluxation of what appears to be the remnant of the talar neck. Prominent plantar calcaneal mesial fight. XR/XR foot LT 2V IMPRESSION: Acute appearing fractures of the fourth proximal phalanx and fifth proximal phalanx as detailed above. Advanced chronic arthropathic changes of the midfoot and possible chronic ununited talar neck fracture. Moderate osteoarthritis of the first interphalangeal joint. Electronically signed by: Iam Monson MD 08/07/2024 03:41 AM EDT
--- NOTE | ~2024-08-06 | CT_ITS ---
EXAMINATION: CT HEAD WITHOUT CONTRAST CLINICAL INFORMATION: Aphasia. COMPARISON: CT head from 04/04/2022. TECHNIQUE: Contiguous axial imaging was performed from the skull base to vertex without intravenous administration of contrast. This CT examination was performed using dose optimization techniques as appropriate, variously including the following: *Automated exposure control. *Adjustment of mA and/or kV according to patient size (this includes techniques or standardized protocols for targeted exams where dose is matched to indication/reason for exam; i.e. extremities or head). *Use of iterative reconstruction technique. DLP: 829 mGy-cm FINDINGS: There is no evidence of acute intracranial hemorrhage or edematous territorial infarction. Lou-white matter differentiation is preserved. A few foci of hypoattenuation in the periventricular and deep white matter are consistent with mild microangiopathy. Proportional prominence of the ventricles and sulcal spaces without evidence of obstructive hydrocephalus. No abnormal mass effect or midline shift. No extra-axial fluid collections. Calcific atherosclerotic disease of the intracranial internal carotid arteries. No hyperdense vessel sign. No acute soft tissue or osseous abnormalities. Mild mucosal thickening of the paranasal sinuses. Mild rightward nasal septal deviation. The mastoid air cells and middle ear cavities are clear. CT/CT head for stroke IMPRESSION: 1. No evidence of acute intracranial hemorrhage or edematous territorial infarction. 2. Mild underlying microangiopathy and generalized cerebral volume loss. This critical result was discussed with Dr. Oliveira at 22:20 on 08/06/2024 and it was ascertained that the content and urgency of the report was understood at the time of direct communication. Electronically signed by: Bay Villatoro DO 08/06/2024 10:22 PM EDT
--- NOTE | 2024-08-06 22:00 | ECG_ITS ---
Test Reason : STROKE Blood Pressure : / mmHG Vent. Rate : 077 BPM Atrial Rate : 077 BPM P-R Int : 196 ms QRS Dur : 086 ms QT Int : 402 ms P-R-T Axes : 031 011 056 degrees QTc Int : 454 ms Normal sinus rhythm Normal ECG When compared with ECG of 15-NOV-2022 03:08, No significant change was found Referred By: Tucker Bernal Electronically Signed By:YANCI JACKSON MD
[2024-08-06 22:06] LABS: Glucose, Whole Blood 101 mg/dL (60-115); Prothrombin Time Whole Bld POC 13.1 sec (11.1-13.5); ~PT, ~INR - Anti Coag Clinic 1.1 (0.9-1.1)
[2024-08-06 22:07] VITALS: BP 164/100; PULSE 80; O2SAT 100
[2024-08-06 22:10] VITALS: BP 148/90; PULSE 76; RESP 14; TEMP 36.6; O2SAT 96; BMI 29.9
[2024-08-06 22:11] LABS: MANUAL DIFF FLAG NO
[2024-08-06 22:13] LABS: Basophils Absolute Auto 0.1 X10*3/uL (0.0-0.2); Basophils Percent Auto 1.2 % (0-2); Eosinophils Absolute Auto 0.3 X10*3/uL (0.0-0.4); Eosinophils Percent Auto 3.5 % (0-4); Hemoglobin 14.8 g/dl (14.0-18.0); Imm Gran Abs Auto 0.03 X10*3/uL (0.00-0.03); Imm Gran Pct Auto 0.3 % (0.0-0.4); Lymphocytes Absolute Auto 2.1 X10*3/uL (1.2-4.9); Lymphocytes Percent Auto 22.7 % (20-40); Mean Corpuscular HGB Conc 36.1 g/dl (31.0-36.0); Mean Corpuscular Hemoglobin 31.1 pg (27.0-33.0); Mean Corpuscular Volume 86.1 fL (80.0-98.0); Mean Platelet Volume 9.7 fL (9.4-12.4); Monocytes Absolute Auto 0.7 X10*3/uL (0.1-1.2); Monocytes Percent Auto 7.2 % (2-11); Neutrophils Absolute Auto 5.9 x10*3/uL (2.0-8.3); Neutrophils Percent Auto 65.1 % (45-73); Platelet Count 267 X10*3/uL (160-400); Red Blood Count 4.76 X10*6/uL (4.60-5.80); Red Cell Distribution Width 12.8 % (11.0-16.0); White Blood Count 9.1 X10*3/uL (4.8-10.8)
[2024-08-06] MEDS: iohexoL 350 MG/ML 100 ML INFUS..BTL 75 ML IV (22:17)
[2024-08-06 22:20] LABS: INTERNATIONAL NORM RATIO 0.9 (0.9-1.1); Prothrombin Time 10.8 SEC (10.9-12.4)
[2024-08-06 22:22] LABS: Partial Thromboplastin Time 39.3 SEC (26.0-36.8)
[2024-08-06 22:23] LABS: Stroke Lab Use COMPLETE
[2024-08-06 22:31] LABS: Anion Gap 17 (12-20); Blood Urea Nitrogen 10 mg/dL (9-16); Calcium 9.3 mg/dL (8.4-10.2); Carbon Dioxide 26 mmol/L (22-29); Chloride 105 mmol/L (96-108); Cholesterol 131 mg/dL (<200); Estimated Glomerular Filt Rate > 60; Glucose Random 114 mg/dL (60-115); HDL Cholesterol 43 mg/dL (>40); LDL Cholesterol Calculated 65 mg/dL (<100); Sodium 144 mmol/L (135-145); Triglycerides 119 mg/dL (<150)
[2024-08-06 22:39] LABS: Troponin-I High Sensitivity < 2.7 ng/L (<3.5-35.0)
[2024-08-06 23:25] VITALS: BP 149/89; PULSE 71; RESP 11; TEMP 36.6; O2SAT 100
[2024-08-06 23:40] VITALS: BP 129/84; PULSE 70; RESP 11; O2SAT 99
[2024-08-07 00:11] VITALS: BP 131/80; PULSE 69; RESP 11; O2SAT 99
--- NOTE | 2024-08-07 00:24 | ED.NEUROSD ---
HPI - Neuro Symptoms/Deficit General Chief Complaint: Stroke Stated Complaint: Stoke Alert, LKW 6pm, speech, fell, Time Seen by Provider: 08/06/24 21:59 Source: patient Mode of arrival: EMS Limitations: no limitations History of Present Illness ED Provider: brigid ALEMAN Narrative: Patient's history of hypertension periodic limb movement disorder peripheral neuropathy no diagnosis of stroke in the past comes by EMS saying that he has a difficulty in getting the words out and has difficulty in walking both lower extremity when tried to get up from the bed his got his foot in the metal frame of the bed and got the laceration no upper extremity weak when he came to the ER articulation of the speech was normal Related Data Home Medications ?Medication ?Instructions ?Recorded ?Confirmed atorvastatin 10 mg tablet 1 tab PO DAILY 04/04/22 04/04/22 epinephrine 0.3 mg/0.3 mL 0.3 mg IM USEASDIRECTD PRN 04/04/22 04/04/22 injection, auto-injector Anaphylaxis fluoxetine 40 mg capsule 1 cap PO DAILY 04/04/22 04/04/22 fluticasone propionate 50 2 spray intranasal DAILY PRN 04/04/22 04/04/22 mcg/actuation nasal Allergy Symptoms spray,suspension gabapentin 800 mg tablet 1 tab PO TID 04/04/22 04/04/22 lidocaine 5 % topical patch 1 patch topical DAILY 04/04/22 04/04/22 metformin 500 mg tablet 1 tab PO BIDWM 04/04/22 04/04/22 oxycodone-acetaminophen 10 mg-325 1 tab PO QID 04/04/22 04/04/22 mg tablet pregabalin 300 mg capsule 1 cap PO BID 04/04/22 04/04/22 Previous Rx's ?Medication ?Instructions ?Recorded amlodipine 5 mg tablet 5 mg PO DAILY #30 tabs 04/07/22 losartan 50 mg tablet 100 mg PO DAILY #60 tabs 04/07/22 omeprazole 20 mg capsule,delayed 20 mg PO BID@0630,1630 #60 caps 04/07/22 release sucralfate 100 mg/mL oral 1 g (10 mL) PO BID 30 days #600 mL 04/07/22 suspension omeprazole 20 mg capsule,delayed 20 mg PO BID #20 caps 11/15/22 release amoxicillin 875 mg-potassium 1 tab PO BID #20 tabs 08/07/24 clavulanate 125 mg tablet Allergies Allergy/AdvReac Type Severity Reaction Status Date / Time No Known Allergies Allergy Verified 08/06/24 22:42 lisinopril Allergy Unknown cough Uncoded 08/06/24 22:42 protonix Allergy Unknown ringing in Uncoded 08/06/24 22:42 ear Review of Systems Review of Systems: Yes all other systems are reviewed and are negative [facility] Past Medical History Medical History Elevated troponin Abnormal EKG Periodic limb movement disorder Sleep apnea Hypertriglyceridemia Gout Type 2 diabetes mellitus ADHD Depression GERD (gastroesophageal reflux disease) Hypertension Surgical History H/O gastric bypass Family History Family History Mother No problems noted. Social History Social History Household Members: Spouse and Other Housing: House Do you presently have visiting nurse or other home services: No Alcohol intake: never Patient Tobacco Use Status: Never used Tobacco Smoked in Last 30 Days: No Use of substances other than those prescribed or required for medical reasons: Yes Substance Use Type: Marijuana Advance Directives: No Advance Directives Information Provided: No service: No Current occupational status: unemployed Physical Exam Vital Signs: Vital Signs: Last Vital Signs Temp 97.8 F 08/06/24 23:25 Pulse 69 08/07/24 00:11 Resp 11 L 08/07/24 00:11 BP 131/80 08/07/24 00:11 Pulse Ox 99 08/07/24 00:11 O2 Del Method Room Air 08/07/24 00:11 BMI result Body Mass Index 29.9 Appearance: Alert. Oriented X3. No acute distress. Eyes: PERRLA, No Nystagmus ENT: Pharynx normal. Oral Mucosa moist Neck: Normal inspection. Neck supple. CVS: Normal heart rate and rhythm. Pulses normal. Respiratory: No respiratory distress. Equal air entry bilateral, no wheezing/rales/rhonchi Abdomen: Soft and nontender. Bowel sounds are present, no mass palpable, no CVA tenderness Skin: Skin warm and dry. Normal skin color. Normal skin turgor. Extremities: No lower extremity edema. No calf tenderness laceration between 3rd and 4th and 4th and 5th toe on the left foot Neuro: Oriented X 3. No motor deficit. No sensory deficit.No cerebellar signs , cranial nerves II-XII intact Medications Administered Discontinued Medications Generic Name Dose Route Start Last Admin Trade Name Polloq PRN Reason Stop Dose Admin Amoxicillin/Clavulanate Potassium 875 mg 08/07/24 01:24 08/07/24 01:31 Amoxicillin/Potassium Clav 875 Mg Tablet PO 08/07/24 01:25 875 mg ONCE ONE Administration Iohexol 75 ml 08/06/24 22:16 08/06/24 22:17 Iohexol 350 Mg/Ml 100 Ml Infus..Btl IV 08/06/24 22:17 75 ml ONCE ONE Administration Lidocaine HCl 10 ml 08/07/24 00:42 08/07/24 01:31 Lidocaine Hcl 1 % Mpf 5 Ml Vial INFILTRATI 08/07/24 00:43 10 ml ONCE ONE Administration Procedures Laceration Laceration 1: Site: lower extremity (Foot) Side (If applicable): left Size (cm): 3 Description: linear Depth: simple, single layer Local Anesthetic: lidocaine 1% Amount of anesthesia used (mL): 10 Skin layer closed with: nylon Size (cm): 5-0 Number of sutures: 10 Technique: simple, interrupted Medical Decision Making Medical Decision Making [facility] Narrative: Patient with peripheral neuropathy no diagnose of stroke in the past comes here for both lower extremity weakness and expressive aphasia during stay in the ER patient noted to have normal speech 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 does not cause most likely was feeling in the lower extremity CT and CTA head and neck negative for acute patient does have laceration between right 3rd and 4th toe which was sutured will discharge patient home x-ray of the left foot showed fracture of the base of 4th proximal phalanx Differential Diagnosis Differential Diagnoses: The differential diagnosis associated with the presentation includes TIAs/hypokalemia/metabolic cause pod lump weakness/neuropathy Admission/Observation Consideration of admission/observation: Escalation of care including admission/observation considered Lab Data [facility] Lab Attestation statement: I reviewed the patient's lab results. 08/06/24 22:00 08/06/24 22:00 Labs: Lab Results 08/06/24 Range/Units 22:00 WBC 9.1 (4.8-10.8) X10*3/uL RBC 4.76 (4.60-5.80) X10*6/uL Hgb 14.8 (14.0-18.0) g/dl Hct 41.0 L (42.0-52.0) % MCV 86.1 (80.0-98.0) fL MCH 31.1 (27.0-33.0) pg MCHC 36.1 H (31.0-36.0) g/dl RDW 12.8 (11.0-16.0) % Plt Count 267 (160-400) X10*3/uL MPV 9.7 (9.4-12.4) fL Immature Gran % (Auto) 0.3 (0.0-0.4) % Neut % (Auto) 65.1 (45-73) % Lymph % (Auto) 22.7 (20-40) % Clare % (Auto) 7.2 (2-11) % Eos % (Auto) 3.5 (0-4) % Baso % (Auto) 1.2 (0-2) % Lymph # (Auto) 2.1 (1.2-4.9) X10*3/uL Clare # (Auto) 0.7 (0.1-1.2) X10*3/uL Eos # (Auto) 0.3 (0.0-0.4) X10*3/uL Baso # (Auto) 0.1 (0.0-0.2) X10*3/uL Abs Immat Gran (auto) 0.03 (0.00-0.03) X10*3/uL Absolute Neuts (auto) 5.9 (2.0-8.3) x10*3/uL Absolute Nucleated RBC 0.000 (0.0-0.012) X10*3/uL Nucleated RBC % (auto) 0.0 (0.0-0.2) /100WBC Hold Purple Top SEE NOTE PT 10.8 L (10.9-12.4) SEC Whole Blood PT 13.1 (11.1-13.5) sec INR 0.9 (0.9-1.1) Whole Blood INR 1.1 (0.9-1.1) APTT 39.3 H (26.0-36.8) SEC Sodium 144 (135-145) mmol/L Potassium 4.0 (3.3-5.1) mmol/L Chloride 105 (96-108) mmol/L Carbon Dioxide 26 (22-29) mmol/L Anion Gap 17 (12-20) BUN 10 (9-16) mg/dL Creatinine 0.85 (0.5-1.4) mg/dL Estim Creat Clear Calc TNP Estimated GFR > 60 POC Glucose 101 (60-115) mg/dL Random Glucose 114 (60-115) mg/dL Calcium 9.3 D (8.4-10.2) mg/dL Troponin I High Sens < 2.7 (<3.5-35.0) ng/L Triglycerides 119 (<150) mg/dL Cholesterol 131 (<200) mg/dL LDL Cholesterol, Calc 65 (<100) mg/dL HDL Cholesterol 43 (>40) mg/dL Independent Interpretation I performed an independent interpretation of an: EKG and CT Scan Interpretation: Normal sinus rhythm heart rate 77 beats per minute normal interval normal axis no acute ST T wave changes Radiology Impression Discussion of test interpretation with radiology: I have reviewed the radiologist's reading. Radiologist Impression: [place] [id number] CT Scan Report Signed Patient: Keon Ragsdale MR#: [id number] : 1965 Acct:[id number] Age/Sex: 59 / M ADM Date: 08/06/24 Loc: .ED Attending Dr: Ordering Physician: Tucker Bernal MD Date of Service: 08/06/24 Procedure(s): CT angio head neck stroke Accession Number(s): [id number] cc: Burak Orr III, MD; Tucker Bernal MD~ EXAMINATION: CT ANGIOGRAM HEAD CT ANGIOGRAM NECK CLINICAL INFORMATION: Aphasia. COMPARISON: CT head from 08/06/2024. TECHNIQUE: Initial noncontrast talent scout imaging of the head and neck was performed. Comparison is made with noncontrast head CT from earlier today. Test bolus sequences followed by intravenous administration 75 mL of Omnipaque 350. Helical imaging was performed in the axial plane from the aortic arch to the skull vertex. Delayed postcontrast imaging of the head was also performed. The data was processed at the cardiopulmonary technologist's workstation for generation of MIP sequences. Angled MIPs and volume rendered reformatted images were also generated at an offline 3D workstation. Stenoses are assessed in accordance with NASCET criteria unless otherwise indicated. This CT examination was performed using dose optimization techniques as appropriate, variously including the following: *Automated exposure control. *Adjustment of mA and/or kV according to patient size (this includes techniques or standardized protocols for targeted exams where dose is matched to indication/reason for exam; i.e. extremities or head). *Use of iterative reconstruction technique. DLP: 1529 mGy-cm FINDINGS: CT Head: There is no evidence of acute intracranial hemorrhage or edematous territorial infarction. Lou-white matter differentiation is preserved. There is no abnormal attenuation within the brain parenchyma. The ventricles are normal in morphology and size. No evidence for obstructive hydrocephalus. No abnormal mass effect or midline shift. No extra-axial fluid collections. No pathologic intra-axial enhancement or regional oligemia. No acute soft tissue or osseous abnormalities. Mild mucosal thickening of the paranasal sinuses. The mastoid air cells and middle ear cavities are clear. Multifocal odontogenic enamel erosions and periapical lucencies. CT Neck: The thyroid gland and remaining cervical soft tissues are within normal limits. Straightening of the normal cervical lordosis. Advanced degenerative disc disease from C5-C7. Facet and uncovertebral joint arthropathy leads to osseous encroachment on the neural foramina from C3-T1. CT Upper Chest: The visualized lung apices and upper mediastinum are within normal limits. Neck CTA: Aortic Arch: Normal contour and caliber with mild calcific atherosclerotic disease. Two vessel branching pattern of the arch with left common carotid artery arising from the brachiocephalic trunk. Great Vessel Origins: No significant stenosis of the branch origins. Right Common Carotid Artery: No focal stenosis or occlusion. Cervical Right Internal Carotid Artery: Calcific atherosclerotic disease of the carotid bulb and proximal internal carotid artery causing less than 50% stenosis. Left Common Carotid Artery: No focal stenosis or occlusion. Cervical Left Internal Carotid Artery: Calcific atherosclerotic disease of the carotid bulb and proximal internal carotid artery causing less than 50% stenosis. Cervical Right Vertebral Artery: Co-dominant. No focal stenosis or occlusion. Cervical Left Vertebral Artery: Co-dominant. No focal stenosis or occlusion. Brain CTA: Intracranial Internal Carotid Arteries: Calcific atherosclerotic disease of the intracranial internal carotid arteries without occlusion or flow-limiting stenosis. Right Anterior Cerebral Artery: The A1 segment is diminutive. Normal opacification of the distal CYRUS segments. Left Anterior Cerebral Artery: Normal A1 segment. Normal opacification of the distal CYRUS segments. Anterior Communicating Artery: Normal. Right Middle Cerebral Artery: Normal M1 segment of the MCA without focal stenosis or occlusion. Normal arborization of the distal segments. Left Middle Cerebral Artery: Normal M1 segment of the MCA without focal stenosis or occlusion. Normal arborization of the distal segments. Right Vertebral Artery: Normal V4 segment. Normal opacification of the proximal segments of the posterior inferior cerebellar artery. Left Vertebral Artery: Normal V4 segment. Normal opacification of the proximal segments of the posterior inferior cerebellar artery. Basilar Artery: Normal without focal stenosis or occlusion. Normal appearance of the proximal superior cerebellar arteries. Right Posterior Cerebral Artery: Normal P1 segment. Normal opacification of the distal LENS GRINDER APPRENTICE segments. Left Posterior Cerebral Artery: Normal P1 segment. Normal opacification of the distal LENS GRINDER APPRENTICE segments. Normal opacification of the superior sagittal, straight, transverse, and sigmoid sinuses. CT/CT angio head neck stroke IMPRESSION: 1. No evidence of acute intracranial hemorrhage or edematous territorial infarction. 2. CTA of the head and neck without proximal occlusion or flow-limiting stenosis. 3. Moderate multilevel degenerative spondyloarthropathy of the cervical spine. Electronically signed by: Bay Villatoro DO 08/06/2024 11:41 PM EDT RP NIH Stroke Scale Internal: Initial- Upon Arrival Level of Consciousness: Alert Level of Consciousness Questions: Answers both questions correctly Level of Consciousness Commands: Performs both tasks correctly Best Gaze: Normal Visual: No visual loss Facial Palsy: Normal Motor Arm (Right): No drift Motor Arm (Left): No drift Motor Leg (Right): No drift Motor Leg (Left): No drift Limb Ataxia: Absent Sensory: Normal Best Language: Mild to moderate aphasia Dysarthia: Normal Extinction and Inattention: No abnormality Score: 1 Discharge Plan Discharge Clinical Impression: Periodic limb movement disorder, Laceration of foot, left Patient Disposition: Home, Self-Care Instructions: Laceration (ED) Additional Instructions: Your CT scan negative for any stroke your weakness was secondary to neuropathy and periodic limb movement disorder Care and cautions as advised Take medication as prescribed Sutures removal in 10-14 days Prophylactic antibiotic as prescribed Prescriptions: New amoxicillin-pot clavulanate 875-125 mg tablet 1 tab PO BID Qty: 20 0RF No Action fluoxetine 40 mg capsule 1 cap PO DAILY metformin 500 mg tablet 1 tab PO BIDWM atorvastatin 10 mg tablet 1 tab PO DAILY oxycodone-acetaminophen 10-325 mg tablet 1 tab PO QID gabapentin 800 mg tablet 1 tab PO TID lidocaine 5 % adhesive patch,medicated 1 patch topical DAILY epinephrine 0.3 mg/0.3 mL auto-injector 0.3 mg IM USEASDIRECTD PRN (Reason: Anaphylaxis) fluticasone propionate 50 mcg/actuation spray,suspension 2 spray intranasal DAILY PRN (Reason: Allergy Symptoms) pregabalin 300 mg capsule 1 cap PO BID losartan 50 mg Tablet 100 mg PO DAILY Qty: 60 0RF Protocol: Hold for SBP< HOLD for SBP < : 90 sucralfate 100 mg/mL Suspension 1 g PO BID 30 Days Qty: 600 0RF amlodipine 5 mg Tablet 5 mg PO DAILY Qty: 30 0RF Protocol: Hold for SBP< HOLD for SBP < : 90 omeprazole 20 mg Capsule,Delayed Release(Dr/Ec) 20 mg PO BID@0630,1630 Qty: 60 0RF omeprazole 20 mg capsule,delayed release(DR/EC) 20 mg PO BID Qty: 20 0RF Print Language: Cymro
[2024-08-07] MEDS: Lidocaine HCl 1 % MPF 5 ML VIAL 10 ML INFILTRATI (01:31)
[2024-08-07] MEDS: Amoxicillin/Potassium Clav 875 MG TABLET PO (01:31)
--- NOTE | 2024-08-07 01:32 | PC.NURSE ---
Pt medicated per [facility] Plan of care ongoing
[2024-08-07 02:28] VITALS: BP 130/89; PULSE 72; RESP 15; TEMP 36.7; O2SAT 99
[2024-08-07 02:30] VITALS: BP 130/89; PULSE 72; RESP 15; TEMP 36.7; O2SAT 99
== END 2024-08-07 02:48 | disposition home or self-care (01) ==
PROVIDERS: Emergency Provider Internal Medicine; PCP Internal Medicine
DX: G47.61 Periodic limb movement disorder (principal); S91.312A Laceration without foreign body, left foot, initial encounter; W26.8XXA Contact with other sharp object(s), not elsewhere classified, initial encounter; R29.701 NIHSS score 1; E11.9 Type 2 diabetes mellitus without complications; I10 Essential (primary) hypertension; Y93.89 Activity, other specified; Y92.013 Bedroom of single-family (private) house as the place of occurrence of the external cause; Y99.9 Unspecified external cause status; Z79.02 Long term (current) use of antithrombotics/antiplatelets; Z79.899 Other long term (current) drug therapy; Z79.84 Long term (current) use of oral hypoglycemic drugs
CPT/HCPCS: 12002; 36415; 70450; 70496; 70498; 73620; 80048; 80061; 82947; 84484; 85025; 85610; 85730; 93005; 99285; J2003; Q9967

== ENCOUNTER → 2024-08-06 22:00 | Outpatient (BNV) | payer OTHER, SELFPAY | PROVIDERS: Emergency Provider Internal Medicine; PCP Internal Medicine; Visit Provider Internal Medicine Cardiovascular Disease | DX: I63.9 Cerebral infarction, unspecified (principal) | CPT/HCPCS: 93010 ==

== ENCOUNTER 2025-05-12 13:04 | Outpatient (AMB) | payer OTHER, SELFPAY ==
--- NOTE | 2025-05-12 13:24 | MHC.OFFVIS ---
Intake Visit Reasons: 6 month fu Allergies No Known Allergies Allergy (Verified 08/06/24 22:42) lisinopril Allergy (Unknown, Uncoded 08/06/24 22:42) cough protonix Allergy (Unknown, Uncoded 08/06/24 22:42) ringing in ear Medication List - Last Reconciled 05/12/25 by Deonte Evans MD amlodipine 5 mg See Protocol PO DAILY amoxicillin-pot clavulanate 875-125 mg 1 tab PO BID aripiprazole 10 mg PO DAILY atorvastatin 1 tab PO DAILY epinephrine 0.3 mg IM USEASDIRECTD PRN fluoxetine 1 cap PO DAILY fluticasone propionate 50 mcg/actuation 2 sprays intranasal DAILY PRN gabapentin 1 tab PO TID losartan 100 mg See Protocol PO DAILY metformin 1 tab PO BIDWM omeprazole 20 mg PO BID@0630,1630 omeprazole 20 mg PO BID oxycodone-acetaminophen 10-325 mg 1 tab PO QID pregabalin 1 cap PO BID prochlorperazine 25 mg GA BID PRN sucralfate 1 g (10 mL) PO BID 30 days HPI Comments Details: 60 yr man with severe peripheral neuropathy. Last A1c was 6.7 . 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 Also fell in 08/2024, legs buckled and seemed to give out. Legs feel weaker. No further falls. Neuropathic pain in feet/lower legs has been okay, controlled with gabapentin 800mg QID and pregabalin 300mg BID. Feet are less sensitive and bed sheets do not bother him anymore. Having trouble remembering to use wrist splints and wakes with some numbness in hands. No weakness in hands. Still playing guitar. Had labs done by PCP in 07/2024, no anemia. Last A1c 5.5. ?Previous GI bleed. Had a very low HCT and needed 4 pints of blood. Still stammers. He had electrical sensations in the knees for a few minutes daily and may fall straight down or may have controlled fall. Tells to not touch him. Does not have strength to get up for about 15 minutes. Very stressed out. Bottom jaw falls and can't talk as well, worse in the evening. Stutters at times and feels angst in the chest. Knows what he wants to say but can't speak. No triggers. has had a couple of surgeries. Sugars are under much better with gastric bypass and 100 lb weight loss in April 2018 to 196 range. 02/20/24 NCV/EMG UE Early Carpal tunnel syndrome bilaterally, left worse than right. Normal EMG in the left C5-T1 innervated muscles. LE: Severe axonal sensory and motor peripheral neuropathy in the lower extremities. EMG of the L4-S1 innervated muscles is consistent with chronic distal neuropathic changes. Using medical marijuana from [place] and feels significant improvement in his neuropathy Sx. [facility] Medical History (Updated 05/12/25 @ 13:42 by Deonte Evans MD) Carpal tunnel syndrome of left wrist Seizure disorder Anxiety LIV (obstructive sleep apnea) Hypercholesteremia Mood disorder Peripheral neuropathy Elevated troponin Abnormal EKG Periodic limb movement disorder Sleep apnea Hypertriglyceridemia Gout Type 2 diabetes mellitus ADHD Depression GERD (gastroesophageal reflux disease) Hypertension Surgical History H/O gastric bypass Family History (Updated 05/08/25 @ 14:35 by Dick Fortune MA) Mother No problems noted. Father Hypertension Social History Household Members: Spouse and Other Housing: House Do you presently have visiting nurse or other home services: No Alcohol intake: never Patient Tobacco Use Status: Never used Tobacco Substance Use Type: Marijuana service: No Current occupational status: unemployed Review of Systems Const Details: Sleep:? Difficulty getting to sleep?denies.? Difficulty maintaining sleep?denies?.? Urge to move legs?admits.? Teeth grinding?denies.? Shouting or Kicking during sleep?denies.? Abnormal behavior during sleep?denies.? Excessive sleep?denies.? Snoring?denies.? Daytime sleepiness?denies.? ?? General/Constitutional:? Change in appetite?denies.? Chills?denies.? Fatigue?admits.? Fever?denies.? Weight gain?denies.? Weight loss?denies.? ?? Respiratory:? Shortness of breath?denies.? Chest pain?denies.? Cough?admits.? ?? Cardiovascular:? Chest pain at rest?admits.? Chest pain with exertion?denies.? Claudication?denies.? Dizziness?denies.? Fluid accumulation in the legs?denies.? Irregular heartbeat?denies.? Palpitations?denies.? ?? Gastrointestinal:? Abdominal pain?denies.? Constipation?denies.? Diarrhea?denies.? Difficulty swallowing?denies.? Heartburn?denies.? Nausea?admits.? Rectal bleeding?denies.? ?? Genitourinary:? Frequent urination?denies.? Urgency?denies.? Incontinence?denies.? Erectile Dysfunction?denies.? ?? Musculoskeletal:? Neck pain?denies.? Back pain?denies.? Muscle aches?denies.? Painful joints?denies.? Sciatica?denies.? Weakness?denies.? ?? Neurologic:? Difficulty swallowing?denies.? Balance difficulty?denies.? Coordination?normal.? Difficulty speaking?denies.? Dizziness?denies.? Fainting?denies.? Gait abnormality?denies.? Headache?denies.? Loss of strength?denies.? Loss of use of extremity?denies.? Low back pain?denies.? Memory loss?denies.? Seizures?denies.? Tics?denies.? Tingling/Numbness?bilateral lower extremities.? Transient loss of vision?denies.? Tremor?denies.? ?? Psychiatric:? Anxiety?denies.? Auditory/visual hallucinations?denies.? Delusions?denies.? Depressed mood?admits.? Stressors?admits.? Substance abuse?denies.? Suicidal thoughts?denies.? ?? Physical Exam Neuro Other: Neurological: ? Abnormal neurological findings:?Ajs 2 +. Distal blunting in feet.?5-/5 L?finger spread, APB,?and thumb opposition on left.? Mental Status:?alert and oriented X 3,?Normal attention, orientation, memory and affect.? Cranial Nerves:?Pupils are equal, round and reactive to light. Funduscopy shows normal disc bilaterally. External ocular muscles are intact. Visual waller are full, no ptosis. Face is symmetrical, no facial weakness or droop. Facial sensations are normal. Tongue protrudes in midline. Palate elevates symmetrically. Shoulder shrugging is normal..? Motor Examination:?As above, otherwise normal muscle tone, bulk and strength,?No atrophy or fasciculations,?No drift of the extended upper extremities,?Deep tendon reflexes are 2+?,?Plantars are flexor?.? Straight Leg Raising:?90 degrees.? Sensory Exam:?Normal light touch, temperature, pinprick, vibration and joint-position sensations?,?Rhomberg sign is absent.? Coordination:?no ataxia,?no titubation,?[id number], [id number] test and rapid alternating movements were normal.? Gait Exam:?Within normal limits.? Cerebellar Signs:?[id number]-[id number] and [id number]-xe-[id number] is normal,?no dysdiadochokinesia?.? Extrapyramidal System:?No tremor, rigidity with normal facial expressions,?No bradykinesia, no bradyphrenia. Normal arm swing and posture. No propulsion or retropulsion.? Speech:?Normal,?no dysphasia or dysarthria..? Mini Mental Status Exam: ? Level of Consciousness:?Alert.? Orientation:?Knows correct year, month, date, day and season,?Knows correct city, county and state. Knows correct location and floor.? Registration:?Able to register 3 objects.? Attention:?Serial 7's performed accurately.? Recall:?Able to recall 3 out of 3 objects.? Language:?Normal spontaneous speech, fluency, repetition,naming, comprehension, reading and writing.? Total Score:?30/30.? General Examination: ? GENERAL APPEARANCE:??normal,?in no acute distress.? HEART:??S1, S2 normal,?no murmurs.? LUNGS:??clear anteriorly and posteriorly.? MUSCULOSKELETAL:??normal.? EXTREMITIES:??no edema.? PSYCH:??alert, oriented,?cognitive function intact,?cooperative with exam.? Assessment & Plan Assessment & Plan (1) Peripheral neuropathy: Code(s): G62.9 - Polyneuropathy, unspecified Category: Medical (2) Seizure disorder: Comment: Not an active problem. No Sz meds Code(s): G40.909 - Epilepsy, unspecified, not intractable, without status epilepticus Category: Medical (3) Carpal tunnel syndrome of left wrist: Code(s): G56.02 - Carpal tunnel syndrome, left upper limb Category: Medical Plan continue current meds. f/u with [facility] Coding Level of Care Code Est Pt Level 4 (38509) Diagnoses Peripheral neuropathy G62.9 Seizure disorder G40.909 Carpal tunnel syndrome of left wrist G56.02
--- OUTSIDE RECORDS SUMMARY | 2025-05-12 14:22 | XMS_ITS | Clinical Summary ---
Author Organization [facility] Address [address] [place] [address] Care Team Providers Care Water Main Inspector Name Role Phone Unavailable Primary Care Provider Unavailabl e Social History Tobacco Use Types Packs/Day Years Used Date Smoking Tobacco: Never Assessed Sex and Gender Information Value Date Recorded Sex Assigned at Not on file Legal Sex Male 5:51 PM EDT Gender Identity Not on file Sexual Orientation Not on file Plan of Treatment Health Maintenance Due Date Last Done Comments Hepatitis C Screening 1965 DTaP/Tdap/Td (1 - Tdap) 1982 Pneumococcal 50+ years (1 of 1 - PCV) 2014 Zoster (Shingrix) (1 of 2) 2014 COVID-19 Vaccine ( - 2023-2 5 season) 2024 Influenza (#1) 2025 RSV (1 - 1-dose 75+ series) 2039 HPV Vaccine Aged Out No longer eligi ble based on patient's age to complete this topic Hep A Aged Out No longer eligi ble based on patient's age to complete this topic Hep B Aged Out No longer eligi ble based on patient's age to complete this topic Hib Aged Out No longer eligi ble based on patient's age to complete this topic Meningococcal ACWY Aged Out No longer eligible based on patient's age to complete this topic Zoster (Zostavax) Discontinued
== END 2025-05-12 13:45 | disposition home or self-care (01) ==
LOC: HO.HSM 13:04
PROVIDERS: PCP Internal Medicine; Referring Provider Internal Medicine; Visit Provider Psychiatry & Neurology Neurology
DX: G62.9 Polyneuropathy, unspecified (principal); G40.909 Epilepsy, unspecified, not intractable, without status epilepticus; G56.02 Carpal tunnel syndrome, left upper limb
CPT/HCPCS: 99214

== ENCOUNTER → 2025-05-12 13:04 | Outpatient (BNVA) | payer OTHER, SELFPAY | PROVIDERS: PCP Internal Medicine; Referring Provider Internal Medicine; Visit Provider Psychiatry & Neurology Neurology | DX: G56.02 Carpal tunnel syndrome, left upper limb (principal); G40.909 Epilepsy, unspecified, not intractable, without status epilepticus; G62.9 Polyneuropathy, unspecified | CPT/HCPCS: 99212 ==